=== PATIENT | male | born 1965 | race Caucasian/White ===

== ENCOUNTER 2016-10-27 18:33 | Inpatient (IN) | payer MEDICAID, OTHER ==
[~2016-10-27] VITALS: Ht 180.3 cm; Wt 118.0 kg
[2016-10-27] MEDS ORDERED: ONDANSETRON 4 MG INJ IV STA (18:49)
[2016-10-27] MEDS ORDERED: SOD CHLORIDE 0.9% 1,000 ML IV STA ×4 (18:49→20:47)
[2016-10-27] MEDS ORDERED: HYDROmorphONE 1 MG/ML SYG IV STA ×2 (18:49→20:38)
--- NOTE | 2016-10-27 19:32 | RADRPT ---
PROCEDURE: US Abdomen. CLINICAL INDICATION: Abdominal pain. TECHNIQUE: Multiple real-time images were acquired of the patient's right upper quadrant utilizing a high resolution transducer. The images were reviewed on a high-resolution PACS workstation. COMPARISON: None FINDINGS: Exam is limited secondary to body habitus. The liver demonstrates heterogeneous in echogenicity and size and no focal lesions are seen. The liver measures 18 cm in size. No gallstones are identified within the gallbladder. There is no pericholecystic fluid. The gallbladder wall measures 2.3 mm in size. No intrahepatic biliary dilatation is seen. The common bile duct measures 5.1 mm in maximal dimension. The pancreas is partially visualized. The visualized portion of the pancreas appear get[place] ssly unremarkable. No free fluid is identified. The right kidney is of normal size, and demonstrate normal echogenicity and morphology. The right k idney measures 9.3 cm. There are is no dilatation of the right collecting system. There are no per inephric fluid collections. There are no areas of increased echogenicity to suggest nephrolithiasis . IMPRESSION: Heterogeneous liver with mild hepatomegaly. RPTAT: HPNM Physician Mirtha Date Time Electronically viewed and signed by Physician Mirtha on 10/27/2016 19:32 /
[2016-10-27 19:33] LABS: ADD SCAN DIFF NO
[2016-10-27 19:44] LABS: BASOPHILS % 0.5 % (0.0-2.0); EOSINOPHILS % 0.1 % (0.0-7.0); HEMATOCRIT 48.4 % (42.0-52.0); LYMPHOCYTES % 13.4 % (15.0-51.0); MEAN CORPUSCULAR HEMOGLOBIN 31.8 pg (29.0-33.0); MEAN CORPUSCULAR HGB CONC 33.1 g/dl (32.0-37.0); MEAN CORPUSCULAR VOLUME 96.2 fl (82.0-101.0); MEAN PLATELET VOLUME 11.6 fl (7.4-10.4); MONOCYTE # 0.9 10^3/ul (0.3-0.9); MONOCYTES % 11.2 % (0.0-11.0); NEUTROPHIL # 5.8 10^3/ul (1.6-7.5); NEUTROPHILS % 74.4 % (39.0-77.0); PLATELET COUNT 146 10^3/UL (140-415); RED BLOOD COUNT 5.03 10^6/ul (4.70-6.10); RED CELL DISTRIBUTION WIDTH 13.6 % (11.5-14.5); WHITE BLOOD COUNT 7.8 10^3/ul (4.8-10.8)
[2016-10-27 19:58] LABS: INR 1.1; PROTIME 14.2 Sec (12.2-14.2); PT RATIO 1.1
[2016-10-27 19:59] LABS: PARTIAL THROMBOPLASTIN TIME 30.4 Sec (25.0-35.0)
[2016-10-27 20:25] LABS: ALBUMIN 5.5 g/dl (3.3-4.9); CHLORIDE 99 mmol/L (97-110); SODIUM 144 mmol/L (135-144)
[2016-10-27 20:26] LABS: POTASSIUM 3.7 mmol/L (3.5-5.1)
[2016-10-27 20:28] LABS: ALANINE AMINOTRANSFERASE 106 IU/L (13-69); ALBUMIN/GLOBULIN RATIO 1.41; ALKALINE PHOSPHATASE 106 IU/L (42-121); ANION GAP 39 (8-16); ASPARTATE AMINO TRANSFERASE 206 IU/L (15-46); BILIRUBIN,INDIRECT 0.8 mg/dl (0-1.1); BILIRUBIN,TOTAL 0.8 mg/dl (0.2-1.3); BLOOD UREA NITROGEN 19 mg/dl (7-20); CREATININE 1.52 mg/dl (0.61-1.24); GLUCOSE 195 mg/dl (70-220); TOTAL PROTEIN 9.4 g/dl (6.1-8.1)
[2016-10-27 20:30] LABS: CARBON DIOXIDE 10 mmol/L (21-31)
[2016-10-27 20:44] LABS: TROPONIN-I < 0.012 ng/ml (0.00-0.12)
--- NOTE | 2016-10-27 20:53 | ERA ---
ER Documentation Chief Complaint Date/Time DATE: 10/27/16 TIME: 20:49 Chief Complaint worsening ap today w/ vomiting. +dizziness hx dm HPI Patient is a 51-year-old male with hypertension and diabetes who presents with epigastric pain. He has had pain for 3 weeks. He is vomiting his medications. He said that he cannot eat or keep anything down. He also had a fever recently. He has had no treatment as of yet. He does not currently have a primary doctor. Upon review of old medical records the patient one previous visit in 2008. ROS All systems reviewed and are negative except as per history of present illness. Allergies Allergies: Coded Allergies: No Known Allergy (Verified , 10/27/16) PMhx/Soc History of Surgery: Yes (testicular surgery) Hx Neurological Disorder: No Hx Respiratory Disorders: No Hx Miscellaneous Medical Probl: Yes (pancreatitis, DM, HTN) Hx Alcohol Use: Yes Hx Substance Use: No Hx Tobacco Use: Yes Smoking Status: Current every day smoker FmHx Family History: No diabetes Physical Exam Vitals Vital Signs Date Time Temp Pulse Resp B/P Pulse Ox O2 Delivery O2 Flow Rate FiO2 10/27/16 19:37 107 16 155/101 94 Room Air 10/27/16 18:37 99.0 120 18 136/92 96 Physical Exam Const: Moderate distress secondary to pain Head: Atraumatic Eyes: Normal Conjunctiva ENT: Normal External Ears, Nose and Mouth. Neck: Full range of motion..~ No meningismus. Resp: Clear to auscultation bilaterally Cardio: Tachycardic rate without murmur Abd: Soft, epigastric tenderness to palpation without rebound or guarding Skin: No petechiae or rashes Back: No midline or flank tenderness Ext: No cyanosis, or edema Neur: Awake and alert Psych: Normal Mood and Affect Result Diagram: 10/27/16190910/27/161909 Results 24 hrs Laboratory Tests Test 10/27/16 18:55 10/27/16 19:10 Bedside Glucose 182mg/dL White Blood Count 7.810^3/ul Red Blood Count 5.0310^6/ul Hemoglobin 16.0g/dl Hematocrit 48.4% Mean Corpuscular Volume 96.2fl Mean Corpuscular Hemoglobin 31.8pg Mean Corpuscular Hemoglobin Concent 33.1g/dl Red Cell Distribution Width 13.6% Platelet Count 99498^3/UL Mean Platelet Volume 11.6fl Neutrophils % 74.4% Lymphocytes % 13.4% Monocytes % 11.2% Eosinophils % 0.1% Basophils % 0.5% Nucleated Red Blood Cells % 0.0/100WBC Neutrophils # 5.810^3/ul Lymphocytes # 1.010^3/ul Monocytes # 0.910^3/ul Eosinophils # 0.010^3/ul Basophils # 0.010^3/ul Nucleated Red Blood Cells # 0.010^3/ul Prothrombin Time 14.2Sec Prothrombin Time Ratio 1.1 INR International Normalized Ratio 1.10 Activated Partial Thromboplast Time 30.4Sec Sodium Level 144mmol/L Potassium Level 3.7mmol/L Chloride Level 99mmol/L Carbon Dioxide Level 10mmol/L Anion Gap 39 Blood Urea Nitrogen 19mg/dl Creatinine 1.52mg/dl Glucose Level 195mg/dl Calcium Level 9.0mg/dl Total Bilirubin 0.8mg/dl Direct Bilirubin 0.00mg/dl Indirect Bilirubin 0.8mg/dl Aspartate Amino Transf (AST/SGOT) 206IU/L Alanine Aminotransferase (ALT/SGPT) 106IU/L Alkaline Phosphatase 106IU/L Troponin I < 0.012ng/ml Total Protein 9.4g/dl Albumin 5.5g/dl Globulin 3.90g/dl Albumin/Globulin Ratio 1.41 Lipase 1920U/L Current Medications Medications (Trade) Dose Ordered Sig/Leeanne Route PRN Reason Start Time Stop Time Status Last Admin Dose Admin Sodium Chloride (NS) 1,000 ml @ 1,000 mls/hr Q1H STAT IV 10/27/16 18:49 10/27/16 19:48 DC 10/27/16 19:18 Hydromorphone HCl (Dilaudid) 1 mg ONCE STAT IV 10/27/16 18:49 10/27/16 18:50 DC 10/27/16 19:09 Ondansetron HCl 4 mg 4 mg ONCE STAT IV 10/27/16 18:49 10/27/16 18:50 DC 10/27/16 19:09 Sodium Chloride 1,000 ml @ 1,000 mls/hr Q1H STAT IV 10/27/16 18:49 10/27/16 19:48 DC 10/27/16 19:34 Piperacillin Sod/ Tazobactam Sod (Zosyn 3.375gm/ 100 ml (Pmx)) 100 ml @ 200 mls/hr ONCE ONCE IVPB 10/27/16 21:00 10/27/16 21:29 Hydromorphone HCl (Dilaudid) 1 mg ONCE STAT IV 10/27/16 20:38 10/27/16 20:39 DC Ondansetron HCl (Zofran Inj) 4 mg BRIDGE ORDER PRN IV NAUSEA AND/OR VOMITING 10/27/16 21:00 10/28/16 20:59 Acetaminophen (Tylenol Tab) 650 mg ER BRIDGE PRN PO MILD PAIN/FEVER 10/27/16 21:00 10/28/16 20:59 Procedures/MDM EKG read by me: Rate/Rhythm: Sinus tachycardia at a rate of 113 Intervals: Normal Impression: Sinus tachycardia without ischemia Ultrasound shows hepatomegaly per radiology. Admit MDM: Patient's infectious symptoms have not stabilized and the patient is at risk of rapid decompensation. The patient will be admitted for careful hydration, antibiotic therapy, and infectious source control. Severe Sepsis criteria: Infectious source: Pancreatitis End organ damage indicated by: No end organ damage at this time Sepsis Management: Time of recognition of sepsis: 19:10 Within 3 hours of recognition: Blood cultures x 2 before broad-spectrum antibiotics: Yes 30 ml/kg NS bolus Completed Initial lactate pending Repeat lactate pending Time of recognition of septic shock: No septic shock Septic Shock Assessment: Any lactic acid > 4.0 No Persistent hypotension (SBP < 90 or 40 mmHg drop, MAP < 65) despite 30 mL/kg IV fluid bolus No Volume Re-assessment for Septic Shock (post 30 ml/kg bolus): No septic shock at this time Persistent Hypotension Treatment: Comfort care No Central line Not Required Vasopressor started Not required I considered further perfusion assessment with CVP measurement, SCVO2, bedside ultrasound volume assessment, passive leg raise, trial of further fluid bolus. And proceeded with 30 ml/kg fluid bolus of NSS, broad spectrum antibiotics, and admission. Given the anion gap acidosis I also added lactic acid, Tylenol level , salicylate level, and alcohol level. Accepting Care Team Current data and ongoing care discussed. Admitting Physician: Dr. King from the panel team as the patient has never been admitted before Quality Control Expert(s): None Outstanding Data: Culture results and lactic acid Critical Care: Critical care time 35 minutes excluding all billable procedures Emergent fluid management while maintaining close respiratory support. Provision of immediate and broad-spectrum antibiotic therapy. Simultaneous assessment for possible sources in order to direct targeted therapy. Consideration for invasive and chemical support to prevent cardiopulmonary collapse. Departure Diagnosis: Primary Impression: Pancreatitis Qualified Code: K85.90 - Acute pancreatitis, unspecified complication status, unspecified pancreatitis type Additional Impressions: Sepsis Qualified Code: A41.9 - Sepsis, due to unspecified organism Abdominal pain Qualified Code: R10.13 - Epigastric pain Condition: KALIN Singh MD October 27, 2016 20:53
[2016-10-27] MEDS ORDERED: ONDANSETRON 4 MG INJ IV PRN (21:00)
[2016-10-27] MEDS ORDERED: PIPER-TAZO 3.375 GM IV (PMX) 100 ML IVPB ONE (21:00)
[2016-10-27] MEDS ORDERED: ACETAMINOPHEN 325 MG TAB PO PRN (21:00)
[2016-10-27 21:15] VITALS: TEMP 98.1
--- NOTE | 2016-10-27 21:44 | RADRPT ---
PROCEDURE: CT abdomen and pelvis without intravenous contrast. CLINICAL INDICATION: Pain. TECHNIQUE: CT of the abdomen/pelvis was performed utilizing axial images with reconstructions in s agittal and coronal planes. The administered radiation dose is CTDI 24 mGy, DLP 1515 mGy-cm. COMPARISON: No pertinent prior examinations were submitted for comparison. FINDINGS: Visualized Chest: There is mild atelectasis at the lung bases. Abdomen: The spleen, gallbladder,and adrenal glands are unremarkable. The liver is markedly, diffusely dec reased in attenuation, compatible with hepatic steatosis. There are mild peripancreatic fat infiltrative changes most compatible with pancreatitis. The kidneys are without hydronephrosis. No definite urinary calculi are seen. There is no evidence of bowel obstruction. The appendix is normal. No intra-abdominal free air is seen. Some diverticula are noted along the sigmoid colon without evidence of diverticulitis. There is no evidence of intra-abdominal adenopathy or free fluid. Pelvis: There is no evidence of pelvic adenopathy or free fluid. The prostate and bladder are unremarkable. There is a tiny fat containing left inguinal hernia. Osseous structures: Unremarkable. IMPRESSION: Mild peripancreatic inflammatory changes suggestive of acute pancreatitis. Marked hepatic steatosis. Mild colonic diverticulosis. Tiny, fat-containing left inguinal hernia. RPTAT: HIKT .Tommy Brian MD, Date Time Electronically viewed and signed by .Tommy Brian MD, on 10/27/2016 21:43 .T/
[2016-10-27 22:06] VITALS: PULSE 100
[2016-10-27] MEDS: METOCLOPRAMIDE 10 MG INJ IV PRN (22:16)
[2016-10-27] MEDS ORDERED: HYDROmorphONE 1 MG/ML SYG IV PRN (22:30)
[2016-10-27 22:33] LABS: ACETAMINOPHEN < 10.0 ug/ml (10.0-30.0); SALICYLATE < 1.0 mg/dl (5.0-30.0)
--- NOTE | 2016-10-27 22:51 | HP ---
Date/Time of Note Date/Time of Note DATE: 10/27/16 TIME: 22:51 Assessment/Plan VTE Prophylaxis VTE Prophylaxis Intervention: SCD's Assessment/Plan Chief Complaint/Hosp Course This is a 51-year-old male being admitted to the [facility] floor for: #1 Acute pancreatitis: Alcohol versus triglycerides versus other etiology. Patient denies daily alcohol use however we will check off the alcohol level as well as salicylate and acetaminophen level as well as triglycerides. Patient's ultrasound of the liver showed hepatomegaly. CAT scan was confirmatory for acute pancreatitis. Will continue aggressive IV fluid hydration at this time. Will keep patient n.p.o. Will provide Dilaudid for pain control. And Zofran for nausea and vomiting. Will trend lipase. Will give patient banana bag. #2 lactic acidosis/metabolic acidosis: Likely secondary to #1.initially lactate level was 3.6 at admission will provide IV fluid hydration at this time and continue to monitor lactate level as well as serum bicarb level. There is no overt signs for infection the patient did receive Zosyn in the ED. We will continue to monitor the patient for now and start antibiotics if it becomes indicated. #3 Acute kidney injury: Creatinine was 1.5 for previous creatinine levels are not available. We will continue IV fluid hydration and monitor creatinine function. Will avoid nephrotoxic agents at this time. Renally dose any medications. #4 transaminitis: The current time on CT scan and ultrasound are just appears to be hepatomegaly/steatosis. Will continue to follow. Will order hepatitis panel. #5 Diabetes: We will order A1c level will put patient on insulin sliding scale. Currently he is not on any home medications. #6 DVT and GI prophylaxis: SCDs, Protonix. Further treatment strategy will be implemented as per the clinical course Problems: HPI/ROS Admit Date/Time Admit Date/Time October 27, 2016 at 20:42 Hx of Present Illness Chief complaint: Abdominal pain 3 weeks Patient is a 51-year-old male with hypertension and diabetes who presents with epigastric pain. He has had pain for 3 weeks. He is vomiting his medications. He said that he cannot eat or keep anything down. He also had a fever recently. He has had no treatment as of yet. He does not currently have a primary doctor. Allergies: NKDA Medications: None ROS Const: as per HPI Eyes : No pain discharge or redness or change in visual acuity ENT: No pain, sore throat, congestion, congestion, dysphagia or discharge Respiratory: No shortness of breath, cough, sputum, wheezing, or pleuritic pain Cardiovascular: No chest pain, palpitation, PND, or edema GI : as per HPI Genitourinary: No dysuria, hematuria, flank pain , discharge or CVA tenderness Musculoskeletal: No joint pain, back pain, neck pain, restricted range of motion in neck or joints Skin: No rash, bruising or hives Neuro: No headache, dizziness, syncope, seizure, focal weakness Endocrine: No polyuria, polydipsia, temperature intolerance Psych: No hallucination, depression, anxiety or suicidal ideation PMH/Family/Social Past Medical History Pancreatitis, diabetes mellitus Past Surgical History Testicular surgery Family History Significant Family History: cancer (Brother) Social History Alcohol Use: occasionally Smoking Status: Current every day smoker (1 cigarette per day 15 year) Exam/Review of Systems Vital Signs Vitals Vital Signs Date Time Temp Pulse Resp B/P Pulse Ox O2 Delivery O2 Flow Rate FiO2 10/27/16 21:15 98.1 107 15 151/88 98 10/27/16 19:37 Room Air Exam Exam General: This is a 51-year-old male in mild distress HEENT: Atraumatic, normocephalic. The pupils are equal, round and reactive. Extraocular motor are intact Neck: Supple with full range of motion. No rigidity or meningismus Chest: Nontender Lungs: Clear to auscultation bilaterally no crackles rales or wheezing Heart: Normal S1-S2, Regular rhythm and rate. No murmur, S3, or S4 Abdomen: Soft, epigastric pain to palpation, positive bowel sounds. Extremities: Normal to inspection, no edema no cyanosis Neurologic: Normal mental status, speech normal, cranial nerves II through XII are intact, motor and sensory are intact, no focal weakness Additional Comments PROCEDURE: US Abdomen. CLINICAL INDICATION: Abdominal pain. TECHNIQUE: Multiple real-time images were acquired of the patient's right upper quadrant utilizing a high resolution transducer. The images were reviewed on a high-resolution PACS workstation. COMPARISON: None FINDINGS: Exam is limited secondary to body habitus. The liver demonstrates heterogeneous in echogenicity and size and no focal lesions are seen. The liver measures 18 cm in size. No gallstones are identified within the gallbladder. There is no pericholecystic fluid. The gallbladder wall measures 2.3 mm in size. No intrahepatic biliary dilatation is seen. The common bile duct measures 5.1 mm in maximal dimension. The pancreas is partially visualized. The visualized portion of the pancreas appear grossly unremarkable. No free fluid is identified. The right kidney is of normal size, and demonstrate normal echogenicity and morphology. The right kidney measures 9.3 cm. There are is no dilatation of the right collecting system. There are no perinephric fluid collections. There are no areas of increased echogenicity to suggest nephrolithiasis. IMPRESSION: Heterogeneous liver with mild hepatomegaly. PROCEDURE: CT abdomen and pelvis without intravenous contrast. CLINICAL INDICATION: Pain. TECHNIQUE: CT of the abdomen/pelvis was performed utilizing axial images with reconstructions in sagittal and coronal planes. The administered radiation dose is CTDI 24 mGy, DLP 1515 mGy-cm. COMPARISON: No pertinent prior examinations were submitted for comparison. FINDINGS: Visualized Chest: There is mild atelectasis at the lung bases. Abdomen: The spleen, gallbladder,and adrenal glands are unremarkable. The liver is markedly, diffusely decreased in attenuation, compatible with hepatic steatosis. There are mild peripancreatic fat infiltrative changes most compatible with pancreatitis. The kidneys are without hydronephrosis. No definite urinary calculi are seen. There is no evidence of bowel obstruction. The appendix is normal. No intra- abdominal free air is seen. Some diverticula are noted along the sigmoid colon without evidence of diverticulitis. There is no evidence of intra-abdominal adenopathy or free fluid. Pelvis: There is no evidence of pelvic adenopathy or free fluid. The prostate and bladder are unremarkable. There is a tiny fat containing left inguinal hernia. Osseous structures: Unremarkable. IMPRESSION: Mild peripancreatic inflammatory changes suggestive of acute pancreatitis. Marked hepatic steatosis. Mild colonic diverticulosis. Tiny, fat-containing left inguinal hernia. RPTAT: HIKT .Tommy Brian MD, Date Time Electronically viewed and signed by .Tommy Brian MD, MD on 10/27/2016 21:43 Labs Result Diagram: 5/30/17 1910 5/30/17 1910 Medications Medications Current Medications Metoclopramide HCl (Reglan) 10 mg Q6 PRN IV NAUSEA Last administered on 22:16; Admin Dose 10 MG; Start 10/27/16 at 22:00 Hydromorphone HCl (Dilaudid) 1 mg Q6H PRN IV PAIN Last administered on 22:15; Admin Dose 1 MG; Start 10/27/16 at 22:30 TANYA BUTT October 27, 2016 22:51
[2016-10-27] MEDS ORDERED: NACL 0.9% 3 ML SYG IV SCH (23:00)
[2016-10-27] MEDS ORDERED: METOCLOPRAMIDE 10 MG INJ IV PRN (23:00)
[2016-10-27] MEDS ORDERED: LORAZEPAM 2 MG INJ IV PRN (23:00)
[2016-10-27] MEDS: SOD CHLORIDE 0.9% 1,000 ML IV SCH (23:45)
[2016-10-28] VITALS (12 sets, daily range): BP systolic 128–153; BP diastolic 65–84; PULSE 110–126; RESP 16–18; Ht 180.3 cm; Wt 118.0 kg
[2016-10-28] MEDS ORDERED: GLUCAGON 1 MG INJ IM PRN (00:15)
[2016-10-28] MEDS ORDERED: GLUCOSE GEL 15 GRAM TUBE BUCCAL PRN (00:15)
[2016-10-28] MEDS ORDERED: GLUCOSE GEL 15 GRAM TUBE PO PRN ×2 (00:15)
[2016-10-28] MEDS ORDERED: DEXTROSE 50% 50 ML SYRINGE IV PRN ×2 (00:15)
[2016-10-28] MEDS: HYDROmorphONE 2 MG/ML SYG IV PRN ×6 (00:16→20:54)
[2016-10-28] MEDS: INSULIN ASPART [NOVOLOG] 3 ML PEN SC SCH ×6 (00:23→20:51)
[2016-10-28 01:32] LABS: ALBUMIN 4.8 g/dl (3.3-4.9); ALBUMIN/GLOBULIN RATIO 1.5; BILIRUBIN,INDIRECT 0.4 mg/dl (0-1.1); BILIRUBIN,TOTAL 0.4 mg/dl (0.2-1.3); CALCIUM 7.7 mg/dl (8.4-10.2); CREATININE 1.15 mg/dl (0.61-1.24); POTASSIUM 3.9 mmol/L (3.5-5.1)
[2016-10-28] MEDS ORDERED: PANTOPRAZOLE 40 MG INJ IV SCH ×2 (06:00→09:00)
[2016-10-28] MEDS: SOD CHLORIDE 0.9% 1,000 ML IV SCH ×3 (06:24→18:37)
[2016-10-28] MEDS: ONDANSETRON 4 MG INJ IV PRN ×2 (07:07→10:30)
[2016-10-28 08:03] LABS: ADD SCAN DIFF NO
[2016-10-28 08:06] LABS: HAAIG REFLEX REFLEX FILED
[2016-10-28 08:08] LABS: ABNORMAL IP MESSAGE 1; BASOPHILS % 0.1 % (0.0-2.0); EOSINOPHILS % 0.1 % (0.0-7.0); HEMATOCRIT 45.6 % (42.0-52.0); HEMOGLOBIN 14.3 g/dl (14.0-18.0); LYMPHOCYTES # 0.8 10^3/ul (0.8-2.9); LYMPHOCYTES % 10.1 % (15.0-51.0); MEAN CORPUSCULAR HEMOGLOBIN 31.3 pg (29.0-33.0); MEAN CORPUSCULAR HGB CONC 31.4 g/dl (32.0-37.0); MEAN CORPUSCULAR VOLUME 99.8 fl (82.0-101.0); MEAN PLATELET VOLUME 11.5 fl (7.4-10.4); NEUTROPHIL # 5.6 10^3/ul (1.6-7.5); NEUTROPHILS % 76.3 % (39.0-77.0); PLATELET COUNT 98 10^3/UL (140-415); RED BLOOD COUNT 4.57 10^6/ul (4.70-6.10); RED CELL DISTRIBUTION WIDTH 14.1 % (11.5-14.5); WHITE BLOOD COUNT 7.4 10^3/ul (4.8-10.8)
[2016-10-28 08:31] LABS: ALBUMIN 4.9 g/dl (3.3-4.9); ALBUMIN/GLOBULIN RATIO 1.53; BILIRUBIN,INDIRECT 0.5 mg/dl (0-1.1); BILIRUBIN,TOTAL 0.5 mg/dl (0.2-1.3); CALCIUM 7.6 mg/dl (8.4-10.2); CHOL/HDL RATIO 2.2 RATIO; CREATININE 1.2 mg/dl (0.61-1.24); MAGNESIUM 1.6 mg/dl (1.7-2.5); POTASSIUM 3.7 mmol/L (3.5-5.1); TOTAL PROTEIN 8.1 g/dl (6.1-8.1)
[2016-10-28 08:40] LABS: C-REACTIVE PROTEIN 2.6 mg/dl (0.0-0.9)
[2016-10-28 08:57] LABS: THYROID STIMULATING HORMONE 2.36 MIU/L (0.465-4.680)
[2016-10-28] MEDS ORDERED: MULTIVITAMINS 10 ML, THIAMINE 100 MG, FOLIC ACID 1 MG in SOD CHLORIDE 0.9% 1,000 ML IVPB SCH (09:00)
[2016-10-28 09:17] LABS: HEPATITIS B CORE ANTIBODY NEGATIVE (NEGATIVE)
[2016-10-28 10:50] LABS: BARBITURATES NEGATIVE (NEGATIVE); BENZODIAZEPINES NEGATIVE (NEGATIVE); CANNABINOIDS NEGATIVE (NEGATIVE); COCAINE NEGATIVE (NEGATIVE)
[2016-10-28 10:51] LABS: OPIATES POSITIVE (NEGATIVE)
--- NOTE | 2016-10-28 11:14 | PN ---
Date/Time of Note Date/Time of Note DATE: 10/28/16 TIME: 11:11 Assessment/Plan VTE Prophylaxis VTE Prophylaxis Intervention: SCD's Lines/Catheters IV Catheter Type (from Nrsg): Peripheral IV Assessment/Plan Assessment/Plan 51 yo M with pmhx DM2, morbid obesity, h/o acute pancreatitis here for abd pain 2/2 pancreatitis. Imaging without evidence of gallstones. Etio EtOH v DM. PLAN IVFs, ADAT SSI for DM2 SCDs diabetes/RD education dispo pending ability to tolerate PO Subjective 24 Hr Interval Summary Free Text/Dictation Pt states his abdominal pain is not well enough controlled but then frequently doses off during the clinical encounter. Pt reports a previous episode of pancreatitis 5 yrs ago, states cause was not found. Reports his EtOH use is "social." Exam/Review of Systems Vital Signs Vitals Vital Signs Date Time Temp Pulse Resp B/P Pulse Ox O2 Delivery O2 Flow Rate FiO2 10/28/16 09:26 126 10/28/16 07:36 98.0 18 138/76 93 10/27/16 19:37 Room Air Intake and Output 10/27/16 10/27/16 10/28/16 15:00 23:00 07:00 Intake Total 2000 ml 900 ml Balance 2000 ml 900 ml Exam laying in bed, dozing off during interview no mrg lungs clear obese, ntnd no le edema no rashes Results Result Diagram: 10/28/16 0715 10/28/16 0715 Results 24 hrs Laboratory Tests Test 10/27/16 18:55 10/27/16 19:10 10/27/16 21:10 10/28/16 00:22 Bedside Glucose 182 183 White Blood Count 7.8 Red Blood Count 5.03 Hemoglobin 16.0 Hematocrit 48.4 Mean Corpuscular Volume 96.2 Mean Corpuscular Hemoglobin 31.8 Mean Corpuscular Hemoglobin Concent 33.1 Red Cell Distribution Width 13.6 Platelet Count 146 Mean Platelet Volume 11.6 H Neutrophils % 74.4 Lymphocytes % 13.4 L Monocytes % 11.2 H Eosinophils % 0.1 Basophils % 0.5 Nucleated Red Blood Cells % 0.0 Neutrophils # 5.8 Lymphocytes # 1.0 Monocytes # 0.9 Eosinophils # 0.0 Basophils # 0.0 Nucleated Red Blood Cells # 0.0 Prothrombin Time 14.2 Prothrombin Time Ratio 1.1 INR International Normalized Ratio 1.10 Activated Partial Thromboplast Time 30.4 Sodium Level 144 Potassium Level 3.7 Chloride Level 99 Carbon Dioxide Level 10 L Anion Gap 39 H Blood Urea Nitrogen 19 Creatinine 1.52 H Glucose Level 195 Calcium Level 9.0 Total Bilirubin 0.8 Direct Bilirubin 0.00 Indirect Bilirubin 0.8 Aspartate Amino Transf (AST/SGOT) 206 H Alanine Aminotransferase (ALT/SGPT) 106 H Alkaline Phosphatase 106 Troponin I < 0.012 Total Protein 9.4 H Albumin 5.5 H Globulin 3.90 H Albumin/Globulin Ratio 1.41 Lipase 1920 H Lactic Acid Level 3.2 H Salicylates Level < 1.0 L Acetaminophen Level < 10.0 L Ethyl Alcohol Level 39.0 Test 10/28/16 00:56 10/28/16 03:40 10/28/16 04:05 10/28/16 07:15 Sodium Level 139 140 Potassium Level 3.9 3.7 Chloride Level 104 106 Carbon Dioxide Level 13 L 12 L Anion Gap 26 #H 26 H Blood Urea Nitrogen 17 17 Creatinine 1.15 1.20 Glucose Level 185 188 Lactic Acid Level 1.6 Calcium Level 7.7 L 7.6 L Total Bilirubin 0.4 0.5 Direct Bilirubin 0.00 0.00 Indirect Bilirubin 0.4 0.5 Aspartate Amino Transf (AST/SGOT) 167 H 158 H Alanine Aminotransferase (ALT/SGPT) 97 H 95 H Alkaline Phosphatase 88 90 Total Protein 8.0 # 8.1 Albumin 4.8 4.9 Globulin 3.20 3.20 Albumin/Globulin Ratio 1.50 1.53 Urine Opiates Screen POSITIVE Urine Barbiturates NEGATIVE Urine Amphetamines Screen NEGATIVE Urine Benzodiazepines Screen NEGATIVE Urine Cocaine Screen NEGATIVE Urine Cannabinoids NEGATIVE Bedside Glucose 183 White Blood Count 7.4 Red Blood Count 4.57 L Hemoglobin 14.3 Hematocrit 45.6 Mean Corpuscular Volume 99.8 Mean Corpuscular Hemoglobin 31.3 Mean Corpuscular Hemoglobin Concent 31.4 L Red Cell Distribution Width 14.1 Platelet Count 98 #L Mean Platelet Volume 11.5 H Neutrophils % 76.3 Lymphocytes % 10.1 L Monocytes % 13.0 H Eosinophils % 0.1 Basophils % 0.1 Nucleated Red Blood Cells % 0.0 Neutrophils # 5.6 Lymphocytes # 0.8 Monocytes # 1.0 H Eosinophils # 0.0 Basophils # 0.0 Nucleated Red Blood Cells # 0.0 Hemoglobin A1c 8.0 H Magnesium Level 1.6 L C-Reactive Protein 2.6 H Triglycerides Level 253 H Cholesterol Level 220 H LDL Cholesterol, Calculated 71 HDL Cholesterol 98 H Cholesterol/HDL Ratio 2.2 Lipase 68145 H Thyroid Stimulating Hormone (TSH) 2.360 Hepatitis B Surface Antigen NEGATIVE Hepatitis B Core Total Antibody NEGATIVE Hepatitis C Antibody NEGATIVE Test 10/28/16 08:23 Bedside Glucose 182 Medications Medications Current Medications Metoclopramide HCl 10 mg 10 mg Q6 PRN IV NAUSEA Last administered on 10/27/16 22:16; Admin Dose 10 MG; Start 10/27/16 at 22:00 Sodium Chloride (NS) 1,000 ml @ 150 mls/hr Q6H40M IV Last administered on 10/28 06:24; Admin Dose 150 MLS/HR; Start 10/27/16 at 23:00 Lorazepam (Ativan) 1 mg Q4H PRN IV ANXIETY Last administered on 10/28/16 02:44 ; Admin Dose 1 MG; Start 10/27/16 at 23:00 Ondansetron HCl (Zofran Inj) 4 mg Q6H PRN IV NAUSEA AND/OR VOMITING Last administered on 10/28/16 10:30; Admin Dose 4 MG; Start 10/27/16 at 23:00 Acetaminophen (Tylenol Tab) 650 mg Q6H PRN PO PAIN LEVEL 1-3 OR FEVER; Start at 23:00 Insulin Aspart (Novolog Insulin Pen) NOVOLOG *MILD* ALGORI... Q4 SC Last administered on 10/28/16 08:26; Admin Dose 2 UNIT; Start 10/28/16 at 01:00 Miscellaneous Information 1 ea NOTE XX ; Start 10/28/16 at 00:15 Glucose (Glutose) 15 gm Q15M PRN PO DECREASED GLUCOSE; Start 10/28/16 at 00:15 Glucose (Glutose) 22.5 gm Q15M PRN PO DECREASED GLUCOSE; Start 10/28/16 at 00: 15 Dextrose (D50w Syringe) 25 ml Q15M PRN IV DECREASED GLUCOSE; Start 10/28/16 at 00:15 Dextrose (D50w Syringe) 50 ml Q15M PRN IV DECREASED GLUCOSE; Start 10/28/16 at 00:15 Glucagon (Glucagen) 1 mg Q15M PRN IM DECREASED GLUCOSE; Start 10/28/16 at 00:15 Glucose (Glutose) 15 gm Q15M PRN BUCCAL DECREASED GLUCOSE; Start 10/28/16 at 00 :15 Hydromorphone HCl (Dilaudid) 2 mg Q4H PRN IV PAIN; Start 10/28/16 at 13:00 ACTHERINE GILBERT MD October 28, 2016 11:14
[2016-10-28] MEDS ORDERED: MAGNESIUM SULFATE 2 GM/50 ML 50 ML IVPB ONE (13:00)
[2016-10-28] MEDS ORDERED: HYDROmorphONE 2 MG/ML SYG IV PRN ×2 (13:00)
--- NOTE | 2016-10-28 13:16 | CONS ---
DATE OF ADMISSION: 10/27/2016 DATE OF CONSULTATION: 10/28/2016 REASON FOR CONSULTATION: Metabolic acidosis. REQUESTING PHYSICIAN: Dr. King HISTORY OF PRESENT ILLNESS: This is a 51-year-old male with a past medical history of hypertension and diabetes who presented to [facility] with epigastric pain. The patient states the pain has been ongoing for approximately 3 weeks. The patient says he is unable to tolerate p.o .'s. As a result, he came into the emergency room for evaluation. Upon arrival, the patient had a CT scan of the abdomen which showed findings of peripancreatic inflammation to suggest acute pancrea titis as well as marked hepatic steatosis. The patient in the emergency room was given IV hydration , was given IV pain medication and admitted to telemetry for evaluation. Upon my evaluation of the patient at this time, he is currently lethargic but stable, complaining of epigastric pain, denies a ny recent history of hemoptysis, hemetemesis, hematochezia. The patient denies also any history of chronic kidney disease and denies any frothy urine. PAST MEDICAL HISTORY: History of diabetes, hypertension. PAST SURGICAL HISTORY: Testicular surgery. ALLERGIES: NO KNOWN DRUG ALLERGIES. FAMILY HISTORY: Noncontributory. SOCIAL HISTORY: Positive alcohol use. MEDICATIONS: The patient's medications have been reviewed. REVIEW OF SYSTEMS: A 14-point review of systems was conducted. Pertinent positives in HPI, otherwi se negative. PHYSICAL EXAMINATION: VITAL SIGNS: Blood pressure is 142/65, respiration 18, pulse 124, temperature 98.4. HEENT: Head is normocephalic. Pupils are reactive to light. NECK: Supple. HEART: Tachycardic. LUNGS: Show diminished breath sounds at base. ABDOMEN: Soft, positive tenderness to palpation. No rebound or guarding. EXTREMITIES: Negative for clubbing, cyanosis, no edema. DERMATOLOGIC: No rashes. MUSCULOSKELETAL: No joint effusions. NEUROLOGIC: No change in exam. MEDICATIONS: The patient's medications have been reviewed. LABORATORY DATA: Shows sodium 140, potassium 3.7, chloride 106, bicarbonate 12, BUN 17, creatinine 1.20, calcium 7.6, magnesium 1.6. White count 7.4, hemoglobin 14.3, hematocrit 45.6, platelet count is 98. Triglycerides 253. IMAGING STUDIES: As stated in HPI. Gallbladder ultrasound shows hepatomegaly. ASSESSMENT AND PLAN: This is a 51-year-old male who presents with: 1. Nonoliguric acute kidney injury with unknown baseline creatinine. Etiology is likely secondary to hemodynamics. Patient's renal function has improved with IV hydration. At this point, continue to monitor, continue supportive care, renally dose meds, avoid nephrotoxins. Will check a UA with m icroanalysis. 2. Anion gap metabolic acidosis. Etiology may be secondary to ETOH ketoacidosis, starvation ketoac idosis. Possible lactic acidosis may have been a contributing factor. Plan at this point is to adalberto ck an ABG to see if the patient is appropriately compensated. Would continue IV hydration. Continu e dextrose containing solution. Will start the patient on D5 NS at 100 mL an hour. Will continue t o monitor closely. 3. Acute pancreatitis, etiology is likely secondary to ETOH use, possible triglycerides. The patie nt is currently n.p.o., receiving IV hydration and will continue to monitor. Continue pain control. 4. Diabetes. Follow up hemoglobin A1c to monitor hemoglobin and hematocrit levels. 5. Gastrointestinal and deep venous thrombosis prophylaxis. 6. Morbid obesity. Continue to monitor. Thank you, Dr. Kennedy, for this interesting consult. It will be a pleasure to follow patient with yo u throughout the hospital course. Dictated By: STEVEN DEAL/ANIBAL Conf#: [id number] DID#: [id number]
[2016-10-28 14:07] LABS: AADO2 Arterial 65.5 mmHg (7.0-24.0); Allen Test ACCEPTAB; Arterial Base Excess -14.5 mmol/L (-3.0-3); Arterial COHb 0.2 % (0.0-3.0); Arterial HCO3 12.9 mmol/L (22.0-26.0); Arterial MetHb 0.5 % (0.0-1.5); Arterial Total Hemglobin 15.4 g/dl (12.0-18.0); MODE NASAL CANNULA
[2016-10-28] MEDS ORDERED: NITROGLYCERIN (SL) 0.4 MG TAB ONE (14:47)
[2016-10-28 17:43] LABS: CREATINE KINASE 121 IU/L (23-200)
[2016-10-28 17:53] LABS: ADD UMIC YES; URINE BILIRUBIN (Dip) 2+ (NEGATIVE); URINE BLOOD (Dip) 3+ (NEGATIVE); URINE COLOR YELLOW (YELLOW); URINE KETONES (Dip) 3+ (NEGATIVE); URINE LEUKOCYTE ESTERASE (Dip) NEGATIVE (NEGATIVE); URINE NITRITE (Dip) NEGATIVE (NEGATIVE); URINE TOTAL PROTEIN (Dip) 2+ (NEGATIVE); URINE UROBILINOGEN (Dip) 0.2 E.U./dL (0.1-1.0)
[2016-10-28 17:58] LABS: CK-MB 1.71 ng/ml (0.0-2.4); TROPONIN-I < 0.012 ng/ml (0.00-0.12)
[2016-10-28 18:21] LABS: ICTOTEST POSITIVE (NEGATIVE)
[2016-10-28 18:23] LABS: URINE RBCS 0-2 /HPF (0)
[2016-10-28 18:24] LABS: SQUAMOUS EPITHELIAL CELL,UR RARE
[2016-10-29] VITALS (13 sets, daily range): BP systolic 120–138; BP diastolic 70–84; PULSE 104–119; RESP 16–18
[2016-10-29] MEDS: INSULIN ASPART [NOVOLOG] 3 ML PEN SC SCH ×6 (00:33→20:21)
[2016-10-29] MEDS: SOD CHLORIDE 0.9% 1,000 ML IV SCH ×5 (01:40→22:20)
[2016-10-29 01:59] LABS: CREATINE KINASE 113 IU/L (23-200)
[2016-10-29 02:16] LABS: CK-MB 1.65 ng/ml (0.0-2.4); TROPONIN-I < 0.012 ng/ml (0.00-0.12)
[2016-10-29 05:00] LABS: AADO2 Arterial 99.2 mmHg (7.0-24.0); Allen Test ACCEPTAB; Arterial Base Excess -7.8 mmol/L (-3.0-3); Arterial COHb 0.5 % (0.0-3.0); Arterial Fraction of Oxyhgb 93.7 % (93.0-99.0); Arterial HCO3 18.7 mmol/L (22.0-26.0); Arterial MetHb 0.4 % (0.0-1.5); Arterial Total Hemglobin 14.7 g/dl (12.0-18.0); MODE NASAL CANNULA
[2016-10-29 07:41] LABS: ADD SCAN DIFF NO
[2016-10-29 07:51] LABS: ABNORMAL IP MESSAGE 1; BASOPHILS % 0.3 % (0.0-2.0); EOSINOPHILS % 0.2 % (0.0-7.0); HEMATOCRIT 42.7 % (42.0-52.0); HEMOGLOBIN 13.9 g/dl (14.0-18.0); LYMPHOCYTES # 0.4 10^3/ul (0.8-2.9); MEAN CORPUSCULAR HEMOGLOBIN 31.9 pg (29.0-33.0); MEAN CORPUSCULAR HGB CONC 32.6 g/dl (32.0-37.0); MEAN CORPUSCULAR VOLUME 97.9 fl (82.0-101.0); MEAN PLATELET VOLUME 11.5 fl (7.4-10.4); MONOCYTE # 1.2 10^3/ul (0.3-0.9); MONOCYTES % 13.7 % (0.0-11.0); NEUTROPHILS % 78.9 % (39.0-77.0); RED BLOOD COUNT 4.36 10^6/ul (4.70-6.10); WHITE BLOOD COUNT 8.9 10^3/ul (4.8-10.8)
[2016-10-29 07:55] LABS: PLATELET COUNT 71 10^3/UL (140-415)
[2016-10-29 08:07] LABS: CREATINE KINASE 82 IU/L (23-200)
[2016-10-29 08:13] LABS: CALCIUM 7.9 mg/dl (8.4-10.2); CREATININE 1.01 mg/dl (0.61-1.24); MAGNESIUM 1.7 mg/dl (1.7-2.5); PHOSPHORUS 0.6 mg/dl (2.5-4.9); POTASSIUM 3.5 mmol/L (3.5-5.1)
[2016-10-29 08:39] LABS: CK-MB 1.31 ng/ml (0.0-2.4); TROPONIN-I < 0.012 ng/ml (0.00-0.12)
[2016-10-29] MEDS: HYDROmorphONE 2 MG/ML SYG IV PRN ×2 (09:01→20:12)
--- NOTE | 2016-10-29 10:37 | PN ---
DATE: 10/29/2016 SUBJECTIVE: The patient continues to have abdominal pain, but does want to eat some food. No other events noted. No hemoptysis, hematemesis or hematochezia. OBJECTIVE: VITAL SIGNS: Blood pressure 134/84, respiration 18, pulse 109, temperature 98.4. HEENT: Head is normocephalic. NECK: Supple. HEART: Regular rate. LUNGS: Show diminished breath sounds at base. ABDOMEN: Soft, positive tenderness to palpation. No rebound or guarding. EXTREMITIES: Negative for clubbing, cyanosis. No edema. DERMATOLOGIC: No rashes. MUSCULOSKELETAL: No joint effusions. NEUROLOGIC: No change in exam. MEDICATIONS: The patient's medications have been reviewed. LABORATORY DATA: Shows sodium 133, potassium 2.5 , chloride 105, BUN 13, creatinine 1.01. White co unt is 8.9, hemoglobin 13.9, hematocrit of 42.7, platelet count 71. ASSESSMENT AND PLAN: 1. Nonoliguric acute kidney injury with unknown baseline creatinine. Etiology secondary to hemodyn amics. Renal function is improved with IV fluids. Continue current treatment plan, supportive care , renally dose his meds. Continue decreasing rate of IV fluids. 2. Diabetic ketoacidosis. Etiology is likely secondary to ETOH or starvation. The patient's UA sh ows positive ketones. The patient's acidemia has been improving with supportive care. At this poin t, continue current treatment plan. No need for bicarbonate therapy. 3. Hyperphosphatemia: Replete with potassium phosphate. 4. Acute pancreatitis: Secondary to ETOH use. The patient is currently n.p.o. on IV hydration. Wi ll defer to primary team. 5. Diabetes: Continue Accu-Cheks and sliding scale. 6. Morbid obesity: Continue to monitor. 7. Gastrointestinal and deep vein thrombosis prophylaxis. Dictated By: STEVEN DEAL/ANIBAL Conf#: [id number] DID#: [id number]
--- NOTE | 2016-10-29 10:46 | PN ---
Date/Time of Note Date/Time of Note DATE: 10/29/16 TIME: 10:46 Assessment/Plan VTE Prophylaxis VTE Prophylaxis Intervention: SCD's Lines/Catheters IV Catheter Type (from Nrsg): Peripheral IV Urinary Cath still in place: No Assessment/Plan Assessment/Plan 51 yo M with pmhx DM2, morbid obesity, h/o acute pancreatitis here for abd pain 2/2 pancreatitis. Imaging without evidence of gallstones. Etio EtOH v DM. Labs also notable for significant metabolic acidosis with anion gap #pancreatitis: suspect 2/2 DM2 though BGs not markedly elevated -cont IVFs, trial of CLD per patietn request #metabolic acidosis with anion gap: suspect starvation ketoacidosis from poor PO in recent weeks; improving -renal on board #DM2 with suboptimal control: Per chart not on any meds at home. A1c yesterday 8.0 DM education visit will start metformin at discharge #chest pain: etio unclear. No evidence of ACS on serial troponins cardiology cs for stress test eval given cardiac RFs (DM2, obesity, fam hx htn) dispo: improvement in PO tolerance, PT eval DVT prophx: SCDs, SQH Subjective 24 Hr Interval Summary Free Text/Dictation Had long talk this AM with patient with aid of Indonesian language line Pt reports his chest pain has improved since yesterday but is still present Pt reports his abd pain is largely resolved and he would like to try eating Of note, pt reports he's been subsisting mostly on fruit juice/smoothies for the past three weeks because he has felt nauseated. States he checks his sugars at home and they are generally in the 140s-180s though when he "gets mad" they go higher. Exam/Review of Systems Vital Signs Vitals Vital Signs Date Time Temp Pulse Resp B/P Pulse Ox O2 Delivery O2 Flow Rate FiO2 10/29/16 08:25 108 10/29/16 07:59 3.0 10/29/16 07:54 98.4 18 134/84 99 10/27/16 19:37 Room Air Intake and Output 10/28/16 10/28/16 10/29/16 14:59 22:59 06:59 Intake Total 1000 ml 1000 ml 1250 ml Output Total 1700 ml Balance 1000 ml -700 ml 1250 ml Exam nad no mrg lungs clear obese no le edema 5/5 strength bl U and LEs Results Result Diagram: 10/29/16 0650 10/29/16 0650 Results 24 hrs Laboratory Tests Test 10/28/16 12:40 10/28/16 12:48 10/28/16 14:51 10/28/16 17:10 Blood Gas Specimen Source Blood arterial Arterial Blood Date Drawn 10/28/2016 1:51:38 PM Arterial Blood pH (Temp corrected) 7.180 *L Arterial Blood pCO2 (Temp correct) 35.4 Arterial Blood pO2 (Temp corrected) 85.2 Arterial Blood HCO3 12.9 L Arterial Blood Base Excess -14.5 L Arterial Blood Oxygen Saturation 95.7 Timmy Test ACCEPTAB Arterial Blood Gas Puncture Site Right Radial Arterial Blood Carboxyhemoglobin 0.2 Arterial Blood Methemoglobin 0.5 Blood Gas A-a O2 Differential 65.5 H Oxyhemoglobin Percent 95.0 Total Hemoglobin 15.4 Blood Gas Temperature 37.0 Blood Gas Modality NASAL CANNULA FiO2 27.0 Blood Gas Critical Value Read Back Cortez NIÑO RN Blood Gas Notified Whom JLD Blood Gas Notified Time 10/28/2016 2:06:06 PM Urine Color YELLOW Urine Clarity CLEAR Urine pH 6.0 Urine Specific [place] >=1.030 H Urine Ketones 3+ H Urine Nitrite NEGATIVE Urine Bilirubin 2+ H Urine Ictotest POSITIVE Urine Urobilinogen 0.2 E.U./dL Urine Leukocyte Esterase NEGATIVE Urine Microscopic RBC 0-2 Urine Microscopic WBC 0-2 Urine Squamous Epithelial Cells RARE Urine Hyaline Casts RARE Urine Granular Casts RARE Urine Hemoglobin 3+ H Urine Random Creatinine 147.21 Urine Random Sodium 61 Urine Glucose 0.25% H Urine Total Protein 167.0 H Bedside Glucose 205 Lactic Acid Level 0.9 Creatine Kinase 121 Creatine Kinase Index 1.4 Creatinine Kinase MB (Mass) 1.71 Troponin I < 0.012 Test 10/28/16 18:39 10/28/16 19:58 10/29/16 00:27 10/29/16 01:02 Bedside Glucose 234 H 271 H 268 H Creatine Kinase 113 Creatine Kinase Index 1.5 Creatinine Kinase MB (Mass) 1.65 Troponin I < 0.012 Test 10/29/16 04:34 10/29/16 05:00 10/29/16 06:50 10/29/16 08:49 Bedside Glucose 235 H 217 Blood Gas Specimen Source Blood arterial Arterial Blood Date Drawn 10/29/2016 4:50:05 AM Arterial Blood pH (Temp corrected) 7.271 *L Arterial Blood pCO2 (Temp correct) 41.6 Arterial Blood pO2 (Temp corrected) 65.8 L Arterial Blood HCO3 18.7 L Arterial Blood Base Excess -7.8 L Arterial Blood Oxygen Saturation 94.6 L Timmy Test ACCEPTAB Arterial Blood Gas Puncture Site Left Radial Arterial Blood Carboxyhemoglobin 0.5 Arterial Blood Methemoglobin 0.4 Blood Gas A-a O2 Differential 99.2 H Oxyhemoglobin Percent 93.7 Total Hemoglobin 14.7 Blood Gas Temperature 37.0 Blood Gas Modality NASAL CANNULA FiO2 30.0 Blood Gas Critical Value Read Back KELBY CANSECO Blood Gas Notified Whom MA Blood Gas Notified Time 10/29/2016 5:00:29 AM White Blood Count 8.9 # Red Blood Count 4.36 L Hemoglobin 13.9 L Hematocrit 42.7 Mean Corpuscular Volume 97.9 Mean Corpuscular Hemoglobin 31.9 Mean Corpuscular Hemoglobin Concent 32.6 Red Cell Distribution Width 14.0 Platelet Count 71 #L Mean Platelet Volume 11.5 H Neutrophils % 78.9 H Lymphocytes % 4.0 L Monocytes % 13.7 H Eosinophils % 0.2 Basophils % 0.3 Nucleated Red Blood Cells % 0.0 Neutrophils # 7.0 Lymphocytes # 0.4 L Monocytes # 1.2 H Eosinophils # 0.0 Basophils # 0.0 Nucleated Red Blood Cells # 0.0 Sodium Level 133 L Potassium Level 3.5 Chloride Level 105 Carbon Dioxide Level 19 L Anion Gap 13 # Blood Urea Nitrogen 13 Creatinine 1.01 Glucose Level 225 H Calcium Level 7.9 L Phosphorus Level 0.6 L Magnesium Level 1.7 Creatine Kinase 82 Creatine Kinase Index 1.6 Creatinine Kinase MB (Mass) 1.31 Troponin I < 0.012 Lipase 4668 H Medications Medications Current Medications Metoclopramide HCl 10 mg 10 mg Q6 PRN IV NAUSEA Last administered on 10/27/16 22:16; Admin Dose 10 MG; Start 10/27/16 at 22:00 Sodium Chloride (NS) 1,000 ml @ 150 mls/hr Q6H40M IV Last administered on 04:19; Admin Dose 150 MLS/HR; Start 10/27/16 at 23:00 Lorazepam (Ativan) 1 mg Q4H PRN IV ANXIETY Last administered on 10/28/16 02:44 ; Admin Dose 1 MG; Start 10/27/16 at 23:00 Ondansetron HCl (Zofran Inj) 4 mg Q6H PRN IV NAUSEA AND/OR VOMITING Last administered on 10/28/16 10:30; Admin Dose 4 MG; Start 10/27/16 at 23:00 Acetaminophen (Tylenol Tab) 650 mg Q6H PRN PO PAIN LEVEL 1-3 OR FEVER; Start at 23:00 Insulin Aspart (Novolog Insulin Pen) NOVOLOG *MILD* ALGORI... Q4 SC Last administered on 10/29/16 08:53; Admin Dose 2 UNIT; Start 10/28/16 at 01:00 Miscellaneous Information 1 ea NOTE XX ; Start 10/28/16 at 00:15 Glucose (Glutose) 15 gm Q15M PRN PO DECREASED GLUCOSE; Start 10/28/16 at 00:15 Glucose (Glutose) 22.5 gm Q15M PRN PO DECREASED GLUCOSE; Start 10/28/16 at 00: 15 Dextrose (D50w Syringe) 25 ml Q15M PRN IV DECREASED GLUCOSE; Start 10/28/16 at 00:15 Dextrose (D50w Syringe) 50 ml Q15M PRN IV DECREASED GLUCOSE; Start 10/28/16 at 00:15 Glucagon (Glucagen) 1 mg Q15M PRN IM DECREASED GLUCOSE; Start 10/28/16 at 00:15 Glucose (Glutose) 15 gm Q15M PRN BUCCAL DECREASED GLUCOSE; Start 10/28/16 at 00 :15 Hydromorphone HCl 2.5 mg 2.5 mg Q4H PRN IV PAIN Last administered on 10/29/16 09:01; Admin Dose 2.5 MG; Start 10/28/16 at 17:00 Potassium Phosphate/Sodium Chloride (K Phos (Mm)/NS) 260 ml @ 65 mls/hr ONCE ONCE IVPB ; Start 10/29/16 at 11:00; Stop 10/29/16 at 14:59 Procedures Procedures lipase improved, a1c 8 CATHERINE GILBERT MD Oct 29, 2016 10:46
[2016-10-29] MEDS ORDERED: POTASSIUM PHOSPHATE 30 MM in SOD CHLORIDE 0.9% 250 ML IVPB ONE (11:00)
--- NOTE | 2016-10-29 17:43 | RADRPT ---
Vent Rate: 125 bpm RR Interval: 0 msec IN Interval: 190 msec QRS Duration: 78 msec QT Interval: 294 msec QTC Interval: 424 msec P-R-T Ethel: 62 - -19 - 20 degrees Sinus tachycardia Nonspecific T wave abnormality Abnormal ECG Electronically Signed By: Juan Valente [id number]
--- NOTE | 2016-10-29 20:28 | CONS ---
DATE OF ADMISSION: 10/27/2016 DATE OF CONSULTATION: 10/29/2016 REASON FOR CONSULTATION: Chest pain, assess for acute coronary syndrome. REQUESTING PHYSICIAN: Dr. Read from the hospitalist service. HISTORY OF PRESENT ILLNESS: Mr. Nolasco is a 51-year-old male with a history of hypertension and diab etes mellitus, who presented with complaints of epigastric pain ongoing for 3 weeks. Additionally, the patient had complaints of mild chest pain described as a pressure-like sensation at rest. Upon arrival in the emergency department, temperature 99, blood pressure 136/92, pulse 120, respiratory r ate 18, sat 96%. The patient's labs revealed white count 7.8, hemoglobin 6.0, platelet count 146. Sodium 144, potassium 3.7, creatinine of 1.52, BUN 19, AST 206, ALT 106. Troponin negative. Albumi n 5.5, lipase of 1920. Patient underwent abdominopelvic CT revealing mild peripancreatic inflammato ry changes suggesting acute pancreatitis, marked about steatosis, mild colonic diverticulosis, left inguinal hernia. The patient underwent a gallbladder ultrasound revealing ____ with mild cardiomega ly. The patient's electrocardiogram reveals sinus tachycardia of 125, normal axis, with diffuse non specific ST-T abnormalities. Patient subsequently admitted to the floor and since admit to floor is currently having troponins trended, returning negative x3. In addition, the patient's lipase, init ially increased to 17,000, is now down to 4668. The patient continues to have abdominal pain. PAST MEDICAL HISTORY: As above in HPI. MEDICATIONS CURRENTLY IN HOSPITAL: 1. Lantus. 2. Dilaudid p.r.n. 3. IV fluid hydration at 50 mL an hour. 4. Tylenol p.r.n. 5. Zofran p.r.n. 6. Ativan p.r.n. 7. Reglan p.r.n. ALLERGIES: NO KNOWN DRUG ALLERGIES. SOCIAL HISTORY: No tobacco, ETOH or illicit drug use. FAMILY HISTORY: No history of sudden cardiac or early CAD. REVIEW OF SYSTEMS: As above in HPI. CONSTITUTIONAL: No fevers, chills. PULMONARY: No current shortness of breath. CARDIOVASCULAR: Positive chest pain. GASTROINTESTINAL: No vomiting, but abdominal pain, pancreatitis. GENITOURINARY: No hematuria. MUSCULOSKELETAL: Degenerative joint disease. PSYCHIATRIC: The patient denies depression. NEUROLOGIC: No documented history of CVA. PHYSICAL EXAMINATION VITAL SIGNS: Temperature of 98.6, blood pressure most recently 120/71, respiratory rate 18, saturat ing 98% on 3 liters. GENERAL: The patient is alert, awake, complaining of abdominal pain. NECK: JVP approximately 9 cm of water. CHEST: Fair movement throughout with decreased breath sounds at bases bilaterally. HEART: Regular rate and rhythm. S1, S2, I/ systolic murmur, nondisplaced PMI. ABDOMEN: Hyperactive bowel sounds. Tenderness to palpation, greatest in epigastric region. EXTREMITIES: No pitting edema, 1+ pulses bilaterally, posterior tibial. LABORATORY DATA: As above in HPI, with most recent from today, white count of 8.9, hemoglobin 13.9, platelet count was 71. Sodium 133, potassium 3.5, creatinine 1.0, BUN 13. IMAGING STUDIES: As above in HPI. No further imaging studies for my review at this time. ECG: As above in HPI. No further electrocardiograms for my review at this time. IMPRESSION: 1. Chest pain, assess for acute coronary syndrome. Unclear if the patient has true coronary syndro me or possible pain referred from his pancreatitis. 2. Abnormal electrocardiogram with nonspecific ST abnormalities. 3. Tachycardia consistent with sinus tachycardia at this time. 4. Diabetes mellitus. 5. Hyponatremia. 6. Pancreatitis. 7. Anemia, mild. 8. Acidosis. RECOMMENDATIONS: 1. At this time, would maintain patient on telemetry monitoring to follow rhythm and rate control c losely. 2. Recheck serial EKGs to assess for any significant ongoing changes. EKG in the morning. EKG for any complaints of chest pain or change in rhythm. 3. I am going to check a 2D echo to further assess patient's ejection fraction, wall motion, and an y major valve abnormalities. 4. We will give patient IV push beta lorena at this time, as he is n.p.o. due to pancreatitis for improved heart rate control and for patient comfort. 5. When the patient's pancreatitis has improved, we will consider stress testing this patient to fu rther assess for the possibility of ischemia lending to the patient's symptoms of chest pain. Thank you for allowing me to take part in the care of this patient. I will continue to follow along very closely with you. Further recommendations will be made as the patient progresses through his inpatient hospital clinical course. Dictated By: TARAH LOZA/ANIBAL Conf#: [id number] DID#: [id number] CC: CATHERINE READ MD;*EndCC*
[2016-10-29] MEDS ORDERED: METOPROLOL 5 MG INJ IV PRN (20:30)
[2016-10-29] MEDS ORDERED: NITROGLYCERIN (SL) 0.4 MG TAB SL PRN (20:30)
[2016-10-29] MEDS ORDERED: MAGNESIUM SULFATE 2 GM/50 ML 50 ML IVPB ONE (20:30)
[2016-10-29] MEDS ORDERED: INSULIN GLARGINE [LANtus] 3 ML PEN SC SCH (21:00)
[2016-10-30] VITALS (11 sets, daily range): BP systolic 128–159; BP diastolic 76–89; PULSE 87–166; RESP 18
[2016-10-30] MEDS: ACCU-CHEK XX SCH (02:00)
[2016-10-30] MEDS: SOD CHLORIDE 0.9% 1,000 ML IV SCH ×2 (04:53→08:20)
[2016-10-30] MEDS: INSULIN ASPART [NOVOLOG] 3 ML PEN SC SCH ×4 (08:19→20:43)
[2016-10-30] MEDS: ACETAMINOPHEN 325 MG TAB PO PRN ×3 (08:19→20:24)
[2016-10-30 08:51] LABS: ANION GAP 17 (8-16); BLOOD UREA NITROGEN 8 mg/dl (7-20); CALCIUM 7.8 mg/dl (8.4-10.2); CARBON DIOXIDE 19 mmol/L (21-31); CHLORIDE 104 mmol/L (97-110); CREATININE 0.81 mg/dl (0.61-1.24); GLUCOSE 262 mg/dl (70-220); POTASSIUM 3.1 mmol/L (3.5-5.1); SODIUM 137 mmol/L (135-144)
[2016-10-30 09:05] LABS: PHOSPHORUS < 0.5 mg/dl (2.5-4.9)
--- NOTE | 2016-10-30 10:09 | PN ---
DATE: 10/30/2016 SUBJECTIVE: The patient is currently tolerating p.o., would like to eat more substantive food per p atient. No other acute events noted. No hemoptysis, hematemesis or hematochezia. OBJECTIVE: VITAL SIGNS: Blood pressure 139/87, respirations 18, pulse 65, temperature 98.5. HEENT: Head is normocephalic. NECK: Supple. HEART: Regular rate. LUNGS: Show diminished breath sounds at the bases. ABDOMEN: Soft, nontender to palpation. No rebound or guarding. EXTREMITIES: Negative for clubbing, cyanosis. No edema. DERMATOLOGIC: No rashes. MUSCULOSKELETAL: No joint effusions. NEUROLOGIC: No change in exam. MEDICATIONS: The patient's medications have been reviewed. LABORATORY DATA: Shows sodium 137, potassium 3.1, chloride 104, BUN 8, creatinine 0.81. ASSESSMENT AND PLAN: 1. Nonoliguric acute kidney injury with unknown baseline creatinine. Etiology secondary to hemodyn amics. Renal function is currently improved with IV hydration. At this point, continue current med ical management. We will decrease rate of IV fluids to 50 mL/hour. 2. Diabetic ketoacidosis. Etiology secondary to ETOH or starvation ketosis. The patient's acidosi s has been improving. Continue to monitor. No need for bicarbonate therapy. 3. Hypophosphatemia. Etiology is likely from total body depletion. Continue aggressive repletion with K-Phos 30 mEq IV x1. Continue oral sodium phosphate and monitor potassium levels. 4. Hypokalemia, replete with potassium chloride. 5. Acute pancreatitis secondary to ETOH. The patient is clinically improving, currently tolerating p.o. We will de-escalate IV fluids, continue to monitor. 6. Diabetes. Continue Accu-Cheks and insulin sliding scale. 7. Morbid obesity. Continue dietary modification. 8. Gastrointestinal and deep venous thrombosis prophylaxis. Dictated By: STEVEN DEAL/ANIBAL Conf#: [id number] DID#: [id number]
[2016-10-30] MEDS ORDERED: POTASSIUM PHOSPHATE 30 MM in SOD CHLORIDE 0.9% 250 ML IVPB ONE (10:30)
--- NOTE | 2016-10-30 12:42 | PN ---
Date/Time of Note Date/Time of Note DATE: 10/30/16 TIME: 12:40 Assessment/Plan VTE Prophylaxis VTE Prophylaxis Intervention: SCD's Lines/Catheters IV Catheter Type (from Nrs): Peripheral IV Urinary Cath still in place: No Assessment/Plan Assessment/Plan 51 yo M with pmhx DM2, morbid obesity, h/o acute pancreatitis here for abd pain 2/2 pancreatitis. Imaging without evidence of gallstones. Etio EtOH v DM. Labs also notable for significant metabolic acidosis with anion gap #pancreatitis: suspect 2/2 DM2 though BGs not markedly elevated -cont IVFs, advance diet to carb controlled #metabolic acidosis with anion gap: suspect starvation ketoacidosis from poor PO in recent weeks; improving -renal on board #DM2 with suboptimal control: Per chart not on any meds at home. A1c 8.0 DM education visit will start metformin at discharge cont lantus #chest pain: etio unclear. No evidence of ACS on serial troponins cardiology consulted for for stress test eval given cardiac RFs (DM2, obesity, fam hx htn) dispo: improvement in PO tolerance, PT eval DVT prophx: SCDs, SQH Subjective 24 Hr Interval Summary Free Text/Dictation Language line used to communicate with patient this afternoon He reports continued L sided abd pain, reports chest pain was present overnight. Troponin negative Pt denies feeling as though food sits in his stomach too long, early satiety or getting full early when eating Exam/Review of Systems Vital Signs Vitals Vital Signs Date Time Temp Pulse Resp B/P Pulse Ox O2 Delivery O2 Flow Rate FiO2 10/30/16 12:26 98.6 104 18 128/89 97 10/29/16 19:23 3.0 10/27/16 19:37 Room Air Intake and Output 10/29/16 10/29/16 10/30/16 15:00 23:00 07:00 Intake Total 2070 ml 1800 ml Output Total 300 ml 800 ml 700 ml Balance -300 ml 1270 ml 1100 ml Results Result Diagram: 10/29/16 0650 10/30/16 0653 Results 24 hrs Laboratory Tests Test 10/29/16 17:07 10/29/16 20:17 10/30/16 03:01 10/30/16 06:53 Bedside Glucose 210 277 H 192 Sodium Level 137 Potassium Level 3.1 L Chloride Level 104 Carbon Dioxide Level 19 L Anion Gap 17 H Blood Urea Nitrogen 8 Creatinine 0.81 Glucose Level 262 H Calcium Level 7.8 L Phosphorus Level < 0.5 L Magnesium Level 2.0 Troponin I < 0.012 Test 10/30/16 08:02 10/30/16 11:58 Bedside Glucose 229 H 210 Medications Medications Current Medications Metoclopramide HCl 10 mg 10 mg Q6 PRN IV NAUSEA Last administered on 10/27/16 22:16; Admin Dose 10 MG; Start 10/27/16 at 22:00 Sodium Chloride (NS) 1,000 ml @ 75 mls/hr [id number] IV Last administered on 08:20; Admin Dose 150 MLS/HR; Start 10/27/16 at 23:00 Lorazepam (Ativan) 1 mg Q4H PRN IV ANXIETY Last administered on 10/28/16 02:44 ; Admin Dose 1 MG; Start 10/27/16 at 23:00 Ondansetron HCl (Zofran Inj) 4 mg Q6H PRN IV NAUSEA AND/OR VOMITING Last administered on 10/28/16 10:30; Admin Dose 4 MG; Start 10/27/16 at 23:00 Acetaminophen (Tylenol Tab) 650 mg Q6H PRN PO PAIN LEVEL 1-3 OR FEVER Last administered on 10/30/16 08:19; Admin Dose 650 MG; Start 10/27/16 at 23:00 Miscellaneous Information 1 ea NOTE XX ; Start 10/28/16 at 00:15 Glucose (Glutose) 15 gm Q15M PRN PO DECREASED GLUCOSE; Start 10/28/16 at 00:15 Glucose (Glutose) 22.5 gm Q15M PRN PO DECREASED GLUCOSE; Start 10/28/16 at 00: 15 Dextrose (D50w Syringe) 25 ml Q15M PRN IV DECREASED GLUCOSE; Start 10/28/16 at 00:15 Dextrose (D50w Syringe) 50 ml Q15M PRN IV DECREASED GLUCOSE; Start 10/28/16 at 00:15 Glucagon (Glucagen) 1 mg Q15M PRN IM DECREASED GLUCOSE; Start 10/28/16 at 00:15 Glucose (Glutose) 15 gm Q15M PRN BUCCAL DECREASED GLUCOSE; Start 10/28/16 at 00 :15 Hydromorphone HCl (Dilaudid) 2.5 mg Q4H PRN IV PAIN Last administered on 20:12; Admin Dose 2.5 MG; Start 10/28/16 at 17:00 Diagnostic Test (Pha) (Accu-Chek) 1 ea 02 XX ; Start 10/30/16 at 02:00 Metoprolol Tartrate (Lopressor) 5 mg Q4H PRN IV HR><110 Hold SBP<100; Start 10/29/16 at 20:30 Nitroglycerin (Nitroglycerin (Sl Tab) 0.4 Mg) 1 tab Q5M PRN SL ANGINA; Start at 20:30 Insulin Glargine 18 unit 18 unit DAILY@20 SC ; Start 10/30/16 at 20:00 Potassium Phosphate/Sodium Chloride (K Phos (Mm)/NS) 260 ml @ 65 mls/hr ONCE ONCE IVPB Last administered on 10/30/16 11:53; Admin Dose 65 MLS/HR; Start 10/30 at 10:30; Stop 10/30/16 at 14:29 Sodium Phosphate (Neutra-Phos) 500 mg BID PO ; Start 10/30/16 at 21:00 Polyethylene Glycol (Miralax) 17 gm ONCE ONCE PO ; Start 10/30/16 at 13:00; Stop 10/30/16 at 13:01; Status UNV Polyethylene Glycol (Miralax) 17 gm DAILY PO ; Start 10/31/16 at 09:00; Status UNV Procedures Procedures serial troponins neg AG still present hyperglycemic CATHERINE GILBERT MD Oct 30, 2016 12:42
[2016-10-30] MEDS: POLYETHYLENE GLYCOL 17 GM PACKET PO ONE ×2 (13:07→14:06)
--- NOTE | 2016-10-30 16:53 | CONS ---
Date/Time of Note Date/Time of Note DATE: 10/30/16 TIME: 16:48 Assessment/Plan Assessment/Plan Chief Complaint/Hosp Course IMPRESSION: 1. Chest pain, assess for acute coronary syndrome. Unclear if the patient has true coronary syndrome or possible pain referred from his pancreatitis.- negative troponin x 3 2. Abnormal electrocardiogram with nonspecific ST abnormalities. 3. Tachycardia consistent with sinus tachycardia at this time. 4. Diabetes mellitus/DKA 5. Hyponatremia-improved 6. Pancreatitis. 7. Anemia, mild. 8. Acidosis-AG met acidosis Recc: -Tele -IVF hydration -insulin therapy -follow pancreatistis/lipase closely -Will f/u echo -stress when stable/over pancreatitis/DKA Problems: Consultation Date/Type/Reason Admit Date/Time October 27, 2016 at 20:42 Initial Consult Date 10/29/2016 Type of Consultation: Cardiology Reason for Consultation Chest pain Referring Provider: CATHERINE GILBERT MD Exam/Review of Systems Vital Signs Vitals Vital Signs Date Time Temp Pulse Resp B/P Pulse Ox O2 Delivery O2 Flow Rate FiO2 10/30/16 16:11 94 10/30/16 15:24 97.8 18 159/88 94 10/29/16 19:23 3.0 10/27/16 19:37 Room Air Intake and Output 10/29/16 10/29/16 10/30/16 15:00 23:00 07:00 Intake Total 2070 ml 1800 ml Output Total 300 ml 800 ml 700 ml Balance -300 ml 1270 ml 1100 ml Exam Review of Systems: CONSTITUTIONAL: No fevers, chills. PULMONARY: No sob CARDIOVASCULAR: No chest pain/palpitations GASTROINTESTINAL: No nausea/vomiting. GENITOURINARY: No hematuria/dysuria. MUSCULOSKELETAL: No myagias/arthalgias. PSYCHIATRIC: The patient denies depression. NEUROLOGIC: No weakness Constitutional: alert Psych: no complaints Head: normocephalic ENMT: mucosa pink and moist Neck: jvd (8 cm water), supple Respiratory: clear to auscultation Cardiovascular: regular rate and rhythm Gastrointestinal: soft, tender (in epigastric region) Musculoskeletal: muscle tone (normal) Extremities: edema (none) Neurological: other (No focal deficits) Results Result Diagram: 10/29/16 0650 10/30/16 0653 Results 24 hrs Laboratory Tests Test 10/29/16 17:07 10/29/16 20:17 10/30/16 03:01 10/30/16 06:53 Bedside Glucose 210 277 H 192 Sodium Level 137 Potassium Level 3.1 L Chloride Level 104 Carbon Dioxide Level 19 L Anion Gap 17 H Blood Urea Nitrogen 8 Creatinine 0.81 Glucose Level 262 H Calcium Level 7.8 L Phosphorus Level < 0.5 L Magnesium Level 2.0 Troponin I < 0.012 Test 10/30/16 08:02 10/30/16 11:58 10/30/16 16:39 Bedside Glucose 229 H 210 231 H Medications Medications Current Medications Metoclopramide HCl 10 mg 10 mg Q6 PRN IV NAUSEA Last administered on 10/27/16 22:16; Admin Dose 10 MG; Start 10/27/16 at 22:00 Sodium Chloride (NS) 1,000 ml @ 75 mls/hr [id number] IV Last administered on 08:20; Admin Dose 150 MLS/HR; Start 10/27/16 at 23:00 Lorazepam (Ativan) 1 mg Q4H PRN IV ANXIETY Last administered on 10/28/16 02:44 ; Admin Dose 1 MG; Start 10/27/16 at 23:00 Ondansetron HCl (Zofran Inj) 4 mg Q6H PRN IV NAUSEA AND/OR VOMITING Last administered on 10/28/16 10:30; Admin Dose 4 MG; Start 10/27/16 at 23:00 Acetaminophen (Tylenol Tab) 650 mg Q6H PRN PO PAIN LEVEL 1-3 OR FEVER Last administered on 10/30/16 14:06; Admin Dose 650 MG; Start 10/27/16 at 23:00 Miscellaneous Information 1 ea NOTE XX ; Start 10/28/16 at 00:15 Glucose (Glutose) 15 gm Q15M PRN PO DECREASED GLUCOSE; Start 10/28/16 at 00:15 Glucose (Glutose) 22.5 gm Q15M PRN PO DECREASED GLUCOSE; Start 10/28/16 at 00: 15 Dextrose (D50w Syringe) 25 ml Q15M PRN IV DECREASED GLUCOSE; Start 10/28/16 at 00:15 Dextrose (D50w Syringe) 50 ml Q15M PRN IV DECREASED GLUCOSE; Start 10/28/16 at 00:15 Glucagon (Glucagen) 1 mg Q15M PRN IM DECREASED GLUCOSE; Start 10/28/16 at 00:15 Glucose (Glutose) 15 gm Q15M PRN BUCCAL DECREASED GLUCOSE; Start 10/28/16 at 00 :15 Hydromorphone HCl (Dilaudid) 2.5 mg Q4H PRN IV PAIN Last administered on t 20:12; Admin Dose 2.5 MG; Start 10/28/16 at 17:00 Diagnostic Test (Pha) (Accu-Chek) 1 ea 02 XX ; Start 10/30/16 at 02:00 Metoprolol Tartrate (Lopressor) 5 mg Q4H PRN IV HR><110 Hold SBP<100; Start 10/29/16 at 20:30 Nitroglycerin (Nitroglycerin (Sl Tab) 0.4 Mg) 1 tab Q5M PRN SL ANGINA; Start at 20:30 Insulin Glargine (Lantus) 18 unit DAILY@20 SC ; Start 10/30/16 at 20:00 Sodium Phosphate (Neutra-Phos) 500 mg BID PO ; Start 10/30/16 at 21:00 Polyethylene Glycol (Miralax) 17 gm DAILY PO ; Start 10/31/16 at 09:00 TARAH GARCIA Oct 30, 2016 16:53
--- NOTE | 2016-10-30 17:19 | RADRPT ---
Echocardiogram Report Patient Name: HOME CARDOZA Gender: Male Date: 1965 Study Date: 30-Oct-2016 Belt Changer: [place] Location: I Ref. Physician: TARAH CRAIG Quality: Good Procedures: Transthoracic echocardiogram with complete 2D, M-Mode, and doppler examination. Indications: Chest Pain. 2D/M Mode Doppler Measurement Value Normal Ranges Measurement Value Normal Ranges LVIDd 2D 4.0 3.5 - 5.6 cm AV Peak Alli 1.6 m/sec LVIDs 2D 2.3 2.1 - 4.1 cm AV Peak PG 10.0 mmHg FS 2D 42.8 % LVOT Peak Alli 1.2 m/sec LVPWd 2D 1.2 0.6 - 1.1 cm LVOT Peak PG 6.0 mmHg IVSd 2D 1.1 0.6 - 1.1 cm MV E Peak Alli 0.8 m/sec AoR Diam 2D 2.8 2.0 - 3.7 cm MV A Peak Alli 1.0 m/sec LA/Ao 2D 1 0 - 1 MV E/A 0.9 EDV 2D 65.9 cm3 MV Decel Time 123 msec ESV 2D 12.3 cm3 MV E/A 0.9 LA Dimen 2D 3.2 2.3 - 4.0 cm Findings Left Ventricle: Lower limits of normal systolic function. Normal left ventricular cavity size. Mild concentric left ventricular hypertrophy. Ejection fraction is visually estimated at 5055 %. Tissue Doppler/Mitral Doppler indices are consistent with impaired relaxation (Stage I diastolic dysfunction). Right Ventricle: Normal right ventricular size. Normal right ventricular systolic function. Left Atrium: The left atrium is normal in size. Right Atrium: The right atrium is normal in size. Mitral Valve: Normal appearance and function of the mitral valve with trace physiologic regurgitation. Aortic Valve: Normal appearance of the aortic valve. No significant aortic stenosis or insufficiency. Tricuspid Valve: Normal appearance and function of the tricuspid valve with trace physiologic regurgitation. Normal right ventricular systolic pressure. Pulmonic Valve: Normal pulmonic valve appearance. Pericardium: Normal pericardium with no significant pericardial effusion. Aorta: Normal aortic root. IVC: Normal size and normal respiratory collapse consistent with normal right atrial pressure. Conclusions 1.Lower limits of normal systolic function. Normal left ventricular cavity size. Mild concentric left ventricular hypertrophy. Ejection fraction is visually estimated at 50-55 %. Tissue Doppler/Mitral Doppler indices are consistent with impaired relaxation (Stage I diastolic dysfunction). 2.Normal appearance and function of the mitral valve with trace physiologic regurgitation. 3.Normal appearance and function of the tricuspid valve with trace physiologic regurgitation. Normal right ventricular systolic pressure. Electronically Signed By: Tarah Craig 30-Oct-2016 17:19:13 -0700 Patient Name: HOME CARDOZA Study Date: 30-Oct-[id number]
[2016-10-30] MEDS ORDERED: LORAZEPAM 1 MG TAB PO PRN (17:30)
[2016-10-30] MEDS ORDERED: INSULIN GLARGINE [LANtus] 3 ML PEN SC SCH (20:00)
[2016-10-30] MEDS: NEUTRA-PHOS 250 MG PACKET PO SCH (20:24)
[2016-10-30] MEDS: ONDANSETRON 4 MG INJ IV PRN (20:28)
[2016-10-30] MEDS: HYDROmorphONE 2 MG/ML SYG IV PRN (22:35)
--- NOTE | 2016-10-30 23:59 | RADRPT ---
Vent Rate: 100 bpm RR Interval: 0 msec NH Interval: 164 msec QRS Duration: 88 msec QT Interval: 362 msec QTC Interval: 466 msec P-R-T [place]: 61 - -20 - 33 degrees Normal sinus rhythm Normal ECG Electronically Signed By: Juan Valente [id number]
[2016-10-31] VITALS (14 sets, daily range): BP systolic 119–165; BP diastolic 82–99; PULSE 87–150; RESP 19–20
[2016-10-31] MEDS: SOD CHLORIDE 0.9% 1,000 ML IV SCH (00:20)
[2016-10-31] MEDS: ACCU-CHEK XX SCH (02:37)
[2016-10-31] MEDS: HYDROmorphONE 2 MG/ML SYG IV PRN ×4 (04:10→22:47)
[2016-10-31] MEDS: METOCLOPRAMIDE 10 MG INJ IV PRN (06:00)
[2016-10-31 07:58] LABS: CALCIUM 7.4 mg/dl (8.4-10.2); CREATININE 0.67 mg/dl (0.61-1.24); MAGNESIUM 1.5 mg/dl (1.7-2.5); PHOSPHORUS 1.4 mg/dl (2.5-4.9)
--- NOTE | 2016-10-31 08:21 | CONS ---
Date/Time of Note Date/Time of Note DATE: 10/31/16 TIME: 08:18 Consult Date/Type/Reason Admit Date/Time October 27, 2016 at 20:42 Initial Consult Date Type of Consultation: neph Ordering Provider: CATHERINE GILBERT MD Subjective The patient is currently tolerating p.o. o other acute events noted. No hemoptysis, hematemesis or hematochezia. tolerates meds and therapies. poc reviewed with OBJECTIVE: HEENT: Head is normocephalic. NECK: Supple. HEART: Regular rate. LUNGS: Show diminished breath sounds at the bases. ABDOMEN: Soft, nontender to palpation. No rebound or guarding. EXTREMITIES: Negative for clubbing, cyanosis. No edema. DERMATOLOGIC: No rashes. MUSCULOSKELETAL: No joint effusions. NEUROLOGIC: No change in exam. MEDICATIONS: The patient's medications have been reviewed. Objective Vital Signs Date Time Temp Pulse Resp B/P Pulse Ox O2 Delivery O2 Flow Rate FiO2 10/31/16 08:11 87 10/31/16 07:47 98.3 19 135/89 98 10/31/16 00:37 3.0 10/27/16 19:37 Room Air Intake and Output 10/30/16 10/30/16 10/31/16 15:00 23:00 07:00 Intake Total 1400 ml 1425 ml Output Total 1700 ml 500 ml Balance -300 ml 925 ml Results/Medications Result Diagram: 10/29/16 0650 10/30/16 0653 Results 24 hrs Laboratory Tests Test 10/30/16 11:58 10/30/16 16:39 10/30/16 20:37 10/31/16 02:29 Bedside Glucose 210 231 H 218 170 Test 10/31/16 08:02 Bedside Glucose 178 Medications Current Medications Metoclopramide HCl 10 mg 10 mg Q6 PRN IV NAUSEA Last administered on 10/31/16 06:00; Admin Dose 10 MG; Start 10/27/16 at 22:00 Sodium Chloride (NS) 1,000 ml @ 75 mls/hr [id number] IV Last administered on 08:20; Admin Dose 150 MLS/HR; Start 10/27/16 at 23:00 Ondansetron HCl (Zofran Inj) 4 mg Q6H PRN IV NAUSEA AND/OR VOMITING Last administered on 10/30/16 20:28; Admin Dose 4 MG; Start 10/27/16 at 23:00 Acetaminophen (Tylenol Tab) 650 mg Q6H PRN PO PAIN LEVEL 1-3 OR FEVER Last administered on 10/30/16 20:24; Admin Dose 650 MG; Start 10/27/16 at 23:00 Miscellaneous Information 1 ea NOTE XX ; Start 10/28/16 at 00:15 Glucose (Glutose) 15 gm Q15M PRN PO DECREASED GLUCOSE; Start 10/28/16 at 00:15 Glucose (Glutose) 22.5 gm Q15M PRN PO DECREASED GLUCOSE; Start 10/28/16 at 00: 15 Dextrose (D50w Syringe) 25 ml Q15M PRN IV DECREASED GLUCOSE; Start 10/28/16 at 00:15 Dextrose (D50w Syringe) 50 ml Q15M PRN IV DECREASED GLUCOSE; Start 10/28/16 at 00:15 Glucagon (Glucagen) 1 mg Q15M PRN IM DECREASED GLUCOSE; Start 10/28/16 at 00:15 Glucose (Glutose) 15 gm Q15M PRN BUCCAL DECREASED GLUCOSE; Start 10/28/16 at 00 :15 Hydromorphone HCl (Dilaudid) 2.5 mg Q4H PRN IV PAIN Last administered on 04:10; Admin Dose 2.5 MG; Start 10/28/16 at 17:00 Diagnostic Test (Pha) (Accu-Chek) 1 ea 02 XX Last administered on 10/31/16 02: 37; Admin Dose 1 EA; Start 10/30/16 at 02:00 Metoprolol Tartrate (Lopressor) 5 mg Q4H PRN IV HR><110 Hold SBP<100; Start 10/29/16 at 20:30 Nitroglycerin (Nitroglycerin (Sl Tab) 0.4 Mg) 1 tab Q5M PRN SL ANGINA; Start at 20:30 Insulin Glargine (Lantus) 18 unit DAILY@20 SC Last administered on 10/30/16 20: 43; Admin Dose 18 UNIT; Start 10/30/16 at 20:00 Sodium Phosphate (Neutra-Phos) 500 mg BID PO Last administered on 6/2/17at 20: 24; Admin Dose 500 MG; Start 10/30/16 at 21:00 Polyethylene Glycol (Miralax) 17 gm DAILY PO ; Start 10/31/16 at 09:00 Lorazepam (Ativan) 1 mg Q4H PRN PO ANXIETY Last administered on 10/30/16t 18:53 ; Admin Dose 1 MG; Start 10/30/16 at 17:30 Assessment/Plan Chief Complaint/Hosp Course 1. Nonoliguric acute kidney injury with unknown baseline creatinine. Etiology secondary to hemodynamics. Renal function is currently improved with IV hydration. At this point, continue current medical management. watch for diuretic phase of faith with electrolyte wasting. replaced k. 2. Diabetic ketoacidosis. Etiology secondary to ETOH or starvation ketosis. The patient's acidosis has been improving. Continue to monitor. No need for bicarbonate therapy. 3. Hypophosphatemia. Etiology is likely from total body depletion. Continue aggressive repletion with K-Phos 30 mEq IV x1. Continue oral sodium phosphate and monitor potassium levels. 4. Hypokalemia, repleted with potassium chloride. 5. Acute pancreatitis secondary to ETOH. The patient is clinically improving, currently tolerating p.o. We will de-escalate IV fluids, continue to monitor. 6. Diabetes. Continue Accu-Cheks and insulin sliding scale. 7. Morbid obesity. Continue dietary modification. 8. Gastrointestinal and deep venous thrombosis prophylaxis. Problems: ROHAN CASTAÑEDA MD Oct 31, 2016 08:21
[2016-10-31] MEDS: POLYETHYLENE GLYCOL 17 GM PACKET PO SCH (08:28)
[2016-10-31] MEDS: NEUTRA-PHOS 250 MG PACKET PO SCH ×2 (08:28→21:00)
[2016-10-31] MEDS: INSULIN ASPART [NOVOLOG] 3 ML PEN SC SCH ×5 (08:30→21:00)
[2016-10-31 08:37] LABS: POTASSIUM 2.8 mmol/L (3.5-5.1)
[2016-10-31] MEDS ORDERED: POTASSIUM CHLORIDE (SR) 20 MEQ TAB PO STA (08:40)
--- NOTE | 2016-10-31 11:29 | CONS ---
Date/Time of Note Date/Time of Note DATE: 10/31/16 TIME: 11:27 Assessment/Plan Assessment/Plan Additional Assessment/Plan 1. Chest pain, assess for acute coronary syndrome. Unclear if the patient has true coronary syndrome or possible pain referred from his pancreatitis.- negative troponin x 3 - med rx for now 2. Abnormal electrocardiogram with nonspecific ST abnormalities. 3. Tachycardia consistent with sinus tachycardia at this time- with pancreatitis, on therapy - likely related to DM/pancreatitis - OK to hydrate 4. Diabetes mellitus/DKA- better now 5. Hyponatremia-improved 6. Pancreatitis - on IVF 7. Anemia, mild. 8. Acidosis-AG met acidosis Consultation Date/Type/Reason Admit Date/Time October 27, 2016 at 20:42 Initial Consult Date Type of Consultation: neph Referring Provider: CATHERINE GILBERT MD 24 HR Interval Summary Free Text/Dictation NO acute change - BP stable - sinus tach, OK to hydrate as needed ROS: No fever, no chills, no nausea, no vomiting, no diarrhea/constipation No recent weight changes No chest pain, no PND, no orthopnea No dizziness, blurred vision No thirst, no heat or cold intolerance Exam/Review of Systems Vital Signs Vitals Vital Signs Date Time Temp Pulse Resp B/P Pulse Ox O2 Delivery O2 Flow Rate FiO2 10/31/16 10:14 150 10/31/16 07:47 98.3 19 135/89 98 10/31/16 00:37 3.0 10/27/16 19:37 Room Air Intake and Output 10/30/16 10/30/16 10/31/16 15:00 23:00 07:00 Intake Total 1400 ml 1425 ml Output Total 1700 ml 500 ml Balance -300 ml 925 ml Exam General: WN/WD/NAD, AOx 3 HEENT: Unicetric/atraumatic/EOMI (follows commands) NECK: JVD elevated, no thyromegaly Lymph: no lymphadenopathy HEART: regular with no S3, II/ systolic murmur at apex LUNGS: Coarse sounds ABD: soft, NT, ND, +BS : Intact Neuro: non focal SKIN: chronic changes EXT: trace edema Results Result Diagram: 10/29/16 0650 10/31/16 0705 Results 24 hrs Laboratory Tests Test 10/30/16 11:58 10/30/16 16:39 10/30/16 20:37 10/31/16 02:29 Bedside Glucose 210 231 H 218 170 Test 10/31/16 07:05 10/31/16 08:02 Sodium Level 138 Potassium Level 2.8 *L Chloride Level 103 Carbon Dioxide Level 22 Anion Gap 16 Blood Urea Nitrogen 7 Creatinine 0.67 Glucose Level 178 Calcium Level 7.4 L Phosphorus Level 1.4 L Magnesium Level 1.5 L Bedside Glucose 178 Medications Medications Current Medications Metoclopramide HCl (Reglan) 10 mg Q6 PRN IV NAUSEA Last administered on 06:00; Admin Dose 10 MG; Start 10/27/16 at 22:00 Ondansetron HCl (Zofran Inj) 4 mg Q6H PRN IV NAUSEA AND/OR VOMITING Last administered on 10/30/16 20:28; Admin Dose 4 MG; Start 10/27/16 at 23:00 Acetaminophen (Tylenol Tab) 650 mg Q6H PRN PO PAIN LEVEL 1-3 OR FEVER Last administered on 10/30/16 20:24; Admin Dose 650 MG; Start 10/27/16 at 23:00 Miscellaneous Information 1 ea NOTE XX ; Start 10/28/16 at 00:15 Glucose (Glutose) 15 gm Q15M PRN PO DECREASED GLUCOSE; Start 10/28/16 at 00:15 Glucose (Glutose) 22.5 gm Q15M PRN PO DECREASED GLUCOSE; Start 10/28/16 at 00: 15 Dextrose (D50w Syringe) 25 ml Q15M PRN IV DECREASED GLUCOSE; Start 10/28/16 at 00:15 Dextrose (D50w Syringe) 50 ml Q15M PRN IV DECREASED GLUCOSE; Start 10/28/16 at 00:15 Glucagon (Glucagen) 1 mg Q15M PRN IM DECREASED GLUCOSE; Start 10/28/16 at 00:15 Glucose (Glutose) 15 gm Q15M PRN BUCCAL DECREASED GLUCOSE; Start 10/28/16 at 00 :15 Hydromorphone HCl (Dilaudid) 2.5 mg Q4H PRN IV PAIN Last administered on 08:29; Admin Dose 2.5 MG; Start 10/28/16 at 17:00 Diagnostic Test (Pha) (Accu-Chek) 1 ea 02 XX Last administered on 10/31/16 02: 37; Admin Dose 1 EA; Start 10/30/16 at 02:00 Metoprolol Tartrate (Lopressor) 5 mg Q4H PRN IV HR><110 Hold SBP<100; Start 10/29/16 at 20:30 Nitroglycerin (Nitroglycerin (Sl Tab) 0.4 Mg) 1 tab Q5M PRN SL ANGINA; Start at 20:30 Insulin Glargine (Lantus) 18 unit DAILY@20 SC Last administered on 10/30/16 20: 43; Admin Dose 18 UNIT; Start 10/30/16 at 20:00 Sodium Phosphate (Neutra-Phos) 500 mg BID PO Last administered on 10/31/16 08: 28; Admin Dose 500 MG; Start 10/30/16 at 21:00 Polyethylene Glycol (Miralax) 17 gm DAILY PO Last administered on 10/31/16 08: 28; Admin Dose 17 GM; Start 10/31/16 at 09:00 Lorazepam (Ativan) 1 mg Q4H PRN PO ANXIETY Last administered on 10/30/16 18:53 ; Admin Dose 1 MG; Start 10/30/16 at 17:30 Potassium Chloride (Klor-Con 20) 40 meq ONCE ONCE PO ; Start 10/31/16 at 12:00; Stop 10/31/16 at 12:01 FRIDA GELLER MD Oct 31, 2016 11:29
[2016-10-31] MEDS ORDERED: POTASSIUM CHLORIDE (SR) 20 MEQ TAB PO ONE (12:00)
[2016-10-31] MEDS ORDERED: MAGNESIUM SULFATE 2 GM/50 ML 50 ML IVPB ONE (14:00)
--- NOTE | 2016-10-31 14:36 | PN ---
Date/Time of Note Date/Time of Note DATE: 10/31/16 TIME: 14:34 Assessment/Plan VTE Prophylaxis VTE Prophylaxis Intervention: SCD's Lines/Catheters IV Catheter Type (from Nrs): Peripheral IV Urinary Cath still in place: No Assessment/Plan Assessment/Plan 51 yo M with pmhx DM2, morbid obesity, h/o acute pancreatitis here for abd pain 2/2 pancreatitis. Imaging without evidence of gallstones. Etio EtOH v DM. Labs also notable for significant metabolic acidosis with anion gap #pancreatitis: suspect 2/2 DM2/hyperglycemia now tolerating diabetic diet, IVFs stopped #metabolic acidosis with anion gap: likely mild DKA -renal on board to aid with lyte correction #DM2 with suboptimal control: Per chart not on any meds at home. A1c 8.0 sp DM education visit cont [place] NEEDS PCP FOR DM FOLLOW UP #chest pain: etio unclear. No evidence of ACS on serial troponins likely referred pain from pancreatics cardiology consulted for for stress test eval given cardiac RFs (DM2, obesity, fam hx htn) will likely discharge with referral for outpatient stress though will dw cardiology prior to discharge dispo: likely home in AM. Needs PCP for DM f/u to prevent readmission DVT prophx: SCDs, SQH Subjective 24 Hr Interval Summary Free Text/Dictation Language line used to facilitate communication with patient and his Pt states abd pain significantly improved. I had a long talk with patient about the need for improved BG control to prevent additional episodes of pancreatitis. dw pt that a1c ("3 month blood sugar test") reflects poor control and that only way to prevent additional pancreatitis episodes is to get BG under control. Dw pt that he's been needing insulin to keep BGs under control during his stay and I advise he be discharged on insulin. Pt currently without PCP, had a glucometer some time ago but doesn' t have one now. pt tolerating PO very well, of note copious amounts of fruit juice noted throughout the room Exam/Review of Systems Vital Signs Vitals Vital Signs Date Time Temp Pulse Resp B/P Pulse Ox O2 Delivery O2 Flow Rate FiO2 10/31/16 12:06 107 10/31/16 11:49 98.3 19 119/82 93 10/31/16 00:37 3.0 10/27/16 19:37 Room Air Intake and Output 6/07/1710/30/16 10/31/16 15:00 23:00 07:00 Intake Total 1400 ml 1425 ml Output Total 1700 ml 500 ml Balance -300 ml 925 ml Exam anxious, sitting up rrr no mrg lungs clear obese no le edema a1c 8 BGs reviewed AG improved lytes improving Results Result Diagram: 10/29/16 0650 10/31/16 0705 Results 24 hrs Laboratory Tests Test 10/30/16 16:39 10/30/16 20:37 10/31/16 02:29 10/31/16 07:05 Bedside Glucose 231 H 218 170 Sodium Level 138 Potassium Level 2.8 *L Chloride Level 103 Carbon Dioxide Level 22 Anion Gap 16 Blood Urea Nitrogen 7 Creatinine 0.67 Glucose Level 178 Calcium Level 7.4 L Phosphorus Level 1.4 L Magnesium Level 1.5 L Test 10/31/16 08:02 10/31/16 12:09 Bedside Glucose 178 233 H Medications Medications Current Medications Metoclopramide HCl (Reglan) 10 mg Q6 PRN IV NAUSEA Last administered on 06:00; Admin Dose 10 MG; Start 10/27/16 at 22:00 Ondansetron HCl (Zofran Inj) 4 mg Q6H PRN IV NAUSEA AND/OR VOMITING Last administered on 10/30/16 20:28; Admin Dose 4 MG; Start 10/27/16 at 23:00 Acetaminophen (Tylenol Tab) 650 mg Q6H PRN PO PAIN LEVEL 1-3 OR FEVER Last administered on 10/30/16 20:24; Admin Dose 650 MG; Start 10/27/16 at 23:00 Miscellaneous Information 1 ea NOTE XX ; Start 10/28/16 at 00:15 Glucose (Glutose) 15 gm Q15M PRN PO DECREASED GLUCOSE; Start 10/28/16 at 00:15 Glucose (Glutose) 22.5 gm Q15M PRN PO DECREASED GLUCOSE; Start 10/28/16 at 00: 15 Dextrose (D50w Syringe) 25 ml Q15M PRN IV DECREASED GLUCOSE; Start 10/28/16 at 00:15 Dextrose (D50w Syringe) 50 ml Q15M PRN IV DECREASED GLUCOSE; Start 10/28/16 at 00:15 Glucagon (Glucagen) 1 mg Q15M PRN IM DECREASED GLUCOSE; Start 10/28/16 at 00:15 Glucose (Glutose) 15 gm Q15M PRN BUCCAL DECREASED GLUCOSE; Start 10/28/16 at 00 :15 Hydromorphone HCl (Dilaudid) 2.5 mg Q4H PRN IV PAIN Last administered on 08:29; Admin Dose 2.5 MG; Start 10/28/16 at 17:00 Diagnostic Test (Pha) (Accu-Chek) 1 ea 02 XX Last administered on 10/31/16 02: 37; Admin Dose 1 EA; Start 10/30/16 at 02:00 Metoprolol Tartrate (Lopressor) 5 mg Q4H PRN IV HR><110 Hold SBP<100; Start 10/29/16 at 20:30 Nitroglycerin (Nitroglycerin (Sl Tab) 0.4 Mg) 1 tab Q5M PRN SL ANGINA; Start at 20:30 Sodium Phosphate (Neutra-Phos) 500 mg BID PO Last administered on 10/31/16 08: 28; Admin Dose 500 MG; Start 10/30/16 at 21:00 Polyethylene Glycol (Miralax) 17 gm DAILY PO Last administered on 10/31/16 08: 28; Admin Dose 17 GM; Start 10/31/16 at 09:00 Lorazepam 1 mg 1 mg Q4H PRN PO ANXIETY Last administered on 10/30/16 18:53; Admin Dose 1 MG; Start 10/30/16 at 17:30 Magnesium Sulfate (Magnesium Sulfate 2 Gm/50 ml) 50 ml @ 25 mls/hr ONCE ONCE IVPB Last administered on 10/31/16 14:06; Admin Dose 25 MLS/HR; Start 10/31/16 at 14:00; Stop 10/31/16 at 15:59 Insulin Glargine (Lantus) 20 unit DAILY@20 SC ; Start 10/31/16 at 20:00 CATHERINE GILBERT MD Oct 31, 2016 14:36
[2016-10-31] MEDS ORDERED: INSULIN GLARGINE [LANtus] 3 ML PEN SC SCH (20:00)
[2016-10-31] MEDS ORDERED: hydrALAzine 20 MG INJ IV PRN (21:00)
[2016-10-31] MEDS ORDERED: LORAZEPAM 2 MG INJ IV PRN (21:00)
[2016-11-01] VITALS (9 sets, daily range): BP systolic 120–154; BP diastolic 80–94; PULSE 88–109; RESP 18–19
[2016-11-01] MEDS ORDERED: ACCU-CHEK XX SCH (02:00)
[2016-11-01] MEDS: HYDROmorphONE 2 MG/ML SYG IV PRN ×3 (04:06→15:21)
[2016-11-01 07:42] LABS: ADD SCAN DIFF NO
[2016-11-01 07:44] LABS: ABNORMAL IP MESSAGE 1; HEMATOCRIT 41.4 % (42.0-52.0); HEMOGLOBIN 14.1 g/dl (14.0-18.0); MEAN CORPUSCULAR HEMOGLOBIN 31.5 pg (29.0-33.0); MEAN CORPUSCULAR HGB CONC 34.1 g/dl (32.0-37.0); MEAN CORPUSCULAR VOLUME 92.6 fl (82.0-101.0); MEAN PLATELET VOLUME 11.3 fl (7.4-10.4); RED BLOOD COUNT 4.47 10^6/ul (4.70-6.10); RED CELL DISTRIBUTION WIDTH 14.1 % (11.5-14.5); WHITE BLOOD COUNT 9.7 10^3/ul (4.8-10.8)
[2016-11-01 07:46] LABS: PLATELET COUNT 131 10^3/UL (140-415)
--- NOTE | 2016-11-01 07:58 | CONS ---
Date/Time of Note Date/Time of Note DATE: 11/01/16 TIME: 07:56 Consult Date/Type/Reason Admit Date/Time October 27, 2016 at 20:42 Type of Consultation: neph Ordering Provider: CATHERINE GILBERT MD Subjective The patient is currently tolerating p.o. o other acute events noted. No hemoptysis, hematemesis or hematochezia. tolerates meds and therapies. poc reviewed with OBJECTIVE: HEENT: Head is normocephalic. NECK: Supple. HEART: Regular rate. LUNGS: Show diminished breath sounds at the bases. ABDOMEN: Soft, nontender to palpation. No rebound or guarding. EXTREMITIES: Negative for clubbing, cyanosis. No edema. DERMATOLOGIC: No rashes. MUSCULOSKELETAL: No joint effusions. NEUROLOGIC: No change in exam. Objective Vital Signs Date Time Temp Pulse Resp B/P Pulse Ox O2 Delivery O2 Flow Rate FiO2 11/01/16 07:43 97.9 85 19 150/81 94 11/01/16 00:32 3.0 Intake and Output 10/31/16 10/31/16 11/01/16 15:00 23:00 07:00 Intake Total 600 ml 700 ml Output Total 4 ml 850 ml Balance 596 ml -150 ml Results/Medications Result Diagram: 11/01/16 0655 10/31/16 0705 Results 24 hrs Laboratory Tests Test 10/31/16 08:02 10/31/16 12:09 10/31/16 17:07 10/31/16 17:09 Bedside Glucose 178 233 H 354 H 344 H Test 10/31/16 20:09 11/01/16 02:19 11/01/16 06:55 Bedside Glucose 309 H 179 White Blood Count 9.7 Red Blood Count 4.47 L Hemoglobin 14.1 Hematocrit 41.4 L Mean Corpuscular Volume 92.6 Mean Corpuscular Hemoglobin 31.5 Mean Corpuscular Hemoglobin Concent 34.1 Red Cell Distribution Width 14.1 Platelet Count 131 #L Mean Platelet Volume 11.3 H Medications Current Medications Metoclopramide HCl (Reglan) 10 mg Q6 PRN IV NAUSEA Last administered on t 06:00; Admin Dose 10 MG; Start 10/27/16 at 22:00 Ondansetron HCl (Zofran Inj) 4 mg Q6H PRN IV NAUSEA AND/OR VOMITING Last administered on 10/30/16 20:28; Admin Dose 4 MG; Start 10/27/16 at 23:00 Acetaminophen (Tylenol Tab) 650 mg Q6H PRN PO PAIN LEVEL 1-3 OR FEVER Last administered on 10/30/16 20:24; Admin Dose 650 MG; Start 10/27/16 at 23:00 Miscellaneous Information 1 ea NOTE XX ; Start 10/28/16 at 00:15 Hydromorphone HCl (Dilaudid) 2.5 mg Q4H PRN IV PAIN Last administered on 04:06; Admin Dose 2.5 MG; Start 10/28/16 at 17:00 Metoprolol Tartrate (Lopressor) 5 mg Q4H PRN IV HR><110 Hold SBP<100; Start 10/29/16 at 20:30 Nitroglycerin (Nitroglycerin (Sl Tab) 0.4 Mg) 1 tab Q5M PRN SL ANGINA; Start at 20:30 Sodium Phosphate (Neutra-Phos) 500 mg BID PO Last administered on 10/31/16 08: 28; Admin Dose 500 MG; Start 10/30/16 at 21:00 Polyethylene Glycol (Miralax) 17 gm DAILY PO Last administered on 10/31/16 08: 28; Admin Dose 17 GM; Start 10/31/16 at 09:00 Insulin Glargine (Lantus) 25 unit DAILY@20 SC ; Start 11/01/16 at 20:00 Diagnostic Test (Pha) (Accu-Chek) 1 ea 02 XX Last administered on 11/01/16 02: 21; Admin Dose 1 EA; Start 11/01/16 at 02:00 Lorazepam (Ativan) 1 mg Q4 PRN IV ANXIETY Last administered on 10/31/16 21:16; Admin Dose 1 MG; Start 10/31/16 at 21:00 Hydralazine HCl (Apresoline) 10 mg Q6H PRN IV ELEVATED BLOOD PRESSURE; Start at 21:00 Assessment/Plan Chief Complaint/Hosp Course 1. Nonoliguric acute kidney injury with unknown baseline creatinine. Etiology secondary to hemodynamics. Renal function is currently improved with IV hydration. At this point, continue current medical management. watch for diuretic phase of faith with electrolyte wasting. monitor serial labs. 2. Diabetic ketoacidosis. Etiology secondary to ETOH or starvation ketosis. The patient's acidosis has been improving. Continue to monitor. No need for bicarbonate therapy. 3. Hypophosphatemia. Etiology is likely from total body depletion and poss saponification from pancreatitis. Continue aggressive repletion. Continue oral sodium phosphate and monitor potassium levels. 4. Hypokalemia, repleted with potassium chloride. 5. Acute pancreatitis secondary to ETOH. The patient is clinically improving, currently tolerating p.o. We will de-escalate IV fluids, continue to monitor. 6. Diabetes. Continue Accu-Cheks and insulin sliding scale. 7. Morbid obesity. Continue dietary modification. 8. Gastrointestinal and deep venous thrombosis prophylaxis. Problems: ROHAN CASTAÑEDA MD Nov 01, 2016 07:58
[2016-11-01 08:00] LABS: CALCIUM 8.5 mg/dl (8.4-10.2); CREATININE 0.67 mg/dl (0.61-1.24); MAGNESIUM 1.6 mg/dl (1.7-2.5); PHOSPHORUS 2.1 mg/dl (2.5-4.9); POTASSIUM 3.1 mmol/L (3.5-5.1)
[2016-11-01] MEDS: POLYETHYLENE GLYCOL 17 GM PACKET PO SCH (08:30)
[2016-11-01] MEDS: NEUTRA-PHOS 250 MG PACKET PO SCH (08:31)
[2016-11-01] MEDS: INSULIN ASPART [NOVOLOG] 3 ML PEN SC SCH ×3 (08:32→17:41)
[2016-11-01 09:14] LABS: BASOPHIL # 0.1 10^3/ul (0.0-0.1); EOSINOPHILS # 0.1 10^3/ul (0.0-0.5); LYMPHOCYTES # 1.1 10^3/ul (0.8-2.9)
[2016-11-01 09:16] LABS: PLATELET ESTIMATE PLT APPEAR ADEQUATE
[2016-11-01] MEDS ORDERED: SOD PHOS MONO/DIBAS 250 MG TAB PO ONE (10:00)
[2016-11-01] MEDS ORDERED: MAGNESIUM SULFATE 3 GM in SOD CHLORIDE 0.9% 100 ML IVPB ONE (10:00)
--- NOTE | 2016-11-01 11:16 | PN ---
Date/Time of Note Date/Time of Note DATE: 11/01/16 TIME: 11:15 Assessment/Plan VTE Prophylaxis VTE Prophylaxis Intervention: SCD's Lines/Catheters IV Catheter Type (from Nrsg): Saline Lock Urinary Cath still in place: No Assessment/Plan Assessment/Plan 51 yo M with pmhx DM2, morbid obesity, h/o acute pancreatitis here for abd pain 2/2 pancreatitis. Imaging without evidence of gallstones. Etio EtOH v DM. Labs also notable for significant metabolic acidosis with anion gap. Also with chest pain earlier this admission, now resolved. #pancreatitis: suspect 2/2 DM2/hyperglycemia now tolerating diabetic diet, IVFs stopped several days ago #metabolic acidosis with anion gap: likely mild DKA -renal on board to aid with lyte correction #DM2 with suboptimal control: Per chart not on any meds at home. A1c 8.0 sp DM education visit cont [place] NEEDS PCP FOR DM FOLLOW UP, NEEDS GLUCOMETER AT DISCHARGE. ADVISE INSULIN AT DISCHARGE #chest pain: etio unclear. No evidence of ACS on serial troponins likely referred pain from pancreatics cardiology consulted for for stress test eval given cardiac RFs (DM2, obesity, fam hx htn) will likely discharge with referral for outpatient stress though will dw cardiology prior to discharge pt NPO at [place] in case cardiolgy service able to coordinate for tomorrow dispo: likely home in AM. Needs PCP for DM f/u to prevent readmission, pending possible stress test DVT prophx: SCDs, SQH brief off service note 51 yo M with poorly controlled DM2 (a1c 8) admitted for acute pancreatitis most likely 2/2 hyperglycemia. Started on lantus. Pt with c/o chest pain, seen by cardiology. Ruled out for ACS with serial enzymes and EKG. PLAN dw cardiology to see if stress test will be done in or outpatient additional diabetic teaching pcp f/u at end of week for BG re eval Subjective 24 Hr Interval Summary Free Text/Dictation Pt reports feeling a little dysphoric. No SI/HI. States the hospital bed is not that comfortable and he's not been sleeping very well. Exam/Review of Systems Vital Signs Vitals Vital Signs Date Time Temp Pulse Resp B/P Pulse Ox O2 Delivery O2 Flow Rate FiO2 11/01/16 08:00 88 11/01/16 07:43 97.9 19 150/81 94 11/01/16 00:32 3.0 Intake and Output 10/31/16 10/31/16 11/01/16 15:00 23:00 07:00 Intake Total 600 ml 700 ml Output Total 4 ml 850 ml Balance 596 ml -150 ml Exam nad, wearing baseball cap and bluetooth earpiece no mrg lungs clear obese no rashes BGs reviewed Results Result Diagram: 11/01/16 0655 11/01/16 0500 Results 24 hrs Laboratory Tests Test 10/31/16 12:09 10/31/16 17:07 10/31/16 17:09 10/31/16 20:09 Bedside Glucose 233 H 354 H 344 H 309 H Test 11/01/16 02:19 11/01/16 05:00 11/01/16 06:55 11/01/16 08:29 Bedside Glucose 179 278 H Sodium Level 139 Potassium Level 3.1 L Chloride Level 99 Carbon Dioxide Level 26 Anion Gap 17 H Blood Urea Nitrogen 8 Creatinine 0.67 Glucose Level 221 H Calcium Level 8.5 Phosphorus Level 2.1 L Magnesium Level 1.6 L White Blood Count 9.7 Red Blood Count 4.47 L Hemoglobin 14.1 Hematocrit 41.4 L Mean Corpuscular Volume 92.6 Mean Corpuscular Hemoglobin 31.5 Mean Corpuscular Hemoglobin Concent 34.1 Red Cell Distribution Width 14.1 Platelet Count 131 #L Mean Platelet Volume 11.3 H Neutrophils % 62.0 Band Neutrophils % 4.0 Lymphocytes % 11.0 L Monocytes % 21.0 H Eosinophils % 1.0 Basophils % 1.0 Neutrophils # 6.0 Lymphocytes # 1.1 Monocytes # 2.0 H Eosinophils # 0.1 Basophils # 0.1 Platelet Estimate PLT APPEAR ADEQUATE Medications Medications Current Medications Metoclopramide HCl (Reglan) 10 mg Q6 PRN IV NAUSEA Last administered on 06:00; Admin Dose 10 MG; Start 10/27/16 at 22:00 Ondansetron HCl (Zofran Inj) 4 mg Q6H PRN IV NAUSEA AND/OR VOMITING Last administered on 10/30/16 20:28; Admin Dose 4 MG; Start 10/27/16 at 23:00 Acetaminophen (Tylenol Tab) 650 mg Q6H PRN PO PAIN LEVEL 1-3 OR FEVER Last administered on 10/30/16 20:24; Admin Dose 650 MG; Start 10/27/16 at 23:00 Miscellaneous Information 1 ea NOTE XX ; Start 10/28/16 at 00:15 Hydromorphone HCl (Dilaudid) 2.5 mg Q4H PRN IV PAIN Last administered on 10:19; Admin Dose 2.5 MG; Start 10/28/16 at 17:00 Metoprolol Tartrate (Lopressor) 5 mg Q4H PRN IV HR><110 Hold SBP<100; Start 10/29/16 at 20:30 Nitroglycerin (Nitroglycerin (Sl Tab) 0.4 Mg) 1 tab Q5M PRN SL ANGINA; Start at 20:30 Sodium Phosphate (Neutra-Phos) 500 mg BID PO Last administered on 11/01/16 08: 31; Admin Dose 500 MG; Start 10/30/16 at 21:00 Polyethylene Glycol (Miralax) 17 gm DAILY PO Last administered on 11/01/16 08: 30; Admin Dose 17 GM; Start 10/31/16 at 09:00 Insulin Glargine (Lantus) 25 unit DAILY@20 SC ; Start 11/01/16 at 20:00 Diagnostic Test (Pha) (Accu-Chek) 1 ea 02 XX Last administered on 11/01/16 02: 21; Admin Dose 1 EA; Start 11/01/16 at 02:00 Lorazepam (Ativan) 1 mg Q4 PRN IV ANXIETY Last administered on 10/31/16 21:16; Admin Dose 1 MG; Start 10/31/16 at 21:00 Hydralazine HCl 10 mg 10 mg Q6H PRN IV ELEVATED BLOOD PRESSURE; Start 10/31/16 at 21:00 Magnesium Sulfate/ Sodium Chloride (Magnesium Sulfate/NS) 106 ml @ 35.333 mls/ hr ONCE ONCE IVPB Last administered on 11/01/16 10:15; Admin Dose 35.333 MLS/ HR; Start 11/01/16 at 10:00; Stop 11/01/16 at 12:59 CATHERINE GILBERT MD Nov 01, 2016 11:16
[2016-11-01] MEDS ORDERED: LISINOPRIL 10 MG TAB PO ONE (11:30)
--- NOTE | 2016-11-01 12:15 | CONS ---
Date/Time of Note Date/Time of Note DATE: 11/01/16 TIME: 12:13 Assessment/Plan Assessment/Plan Additional Assessment/Plan 1. Chest pain, assess for acute coronary syndrome. Unclear if the patient has true coronary syndrome or possible pain referred from his pancreatitis.- negative troponin x 3 - med rx for now - med rx advised, doubt ischemia 2. Abnormal electrocardiogram with nonspecific ST abnormalities. 3. Tachycardia consistent with sinus tachycardia at this time- with pancreatitis, on therapy - likely related to DM/pancreatitis - OK to hydrate 4. Diabetes mellitus/DKA- better now - IMPROVED 5. Hyponatremia-improved 6. Pancreatitis - on IVF 7. Anemia, mild. 8. Acidosis-AG met acidosis - better now Consultation Date/Type/Reason Admit Date/Time October 27, 2016 at 20:42 Type of Consultation: neph Referring Provider: CATHERINE GILBERT MD 24 HR Interval Summary Free Text/Dictation No acute events - better overall - con't pancreatitis Rx ROS: No fever, no chills, no nausea, no vomiting, no diarrhea/constipation No recent weight changes No chest pain, no PND, no orthopnea No dizziness, blurred vision No thirst, no heat or cold intolerance Exam/Review of Systems Vital Signs Vitals Vital Signs Date Time Temp Pulse Resp B/P Pulse Ox O2 Delivery O2 Flow Rate FiO2 11/01/16 11:50 98.6 102 19 141/94 93 11/01/16 00:32 3.0 Intake and Output 10/31/16 10/31/16 11/01/16 15:00 23:00 07:00 Intake Total 600 ml 700 ml Output Total 4 ml 850 ml Balance 596 ml -150 ml Exam General: WN/WD/NAD, AOx 3 HEENT: Unicetric/atraumatic/EOMI (follows commands) NECK: JVD elevated, no thyromegaly Lymph: no lymphadenopathy HEART: regular with no S3, II/ systolic murmur at apex LUNGS: Coarse sounds ABD: soft, NT, ND, +BS : Intact Neuro: non focal SKIN: chronic changes EXT: trace edema Results Result Diagram: 11/01/16 0655 11/01/16 0500 Results 24 hrs Laboratory Tests Test 10/31/16 17:07 10/31/16 17:09 10/31/16 20:09 11/01/16 02:19 Bedside Glucose 354 H 344 H 309 H 179 Test 11/01/16 05:00 11/01/16 06:55 11/01/16 08:29 Sodium Level 139 Potassium Level 3.1 L Chloride Level 99 Carbon Dioxide Level 26 Anion Gap 17 H Blood Urea Nitrogen 8 Creatinine 0.67 Glucose Level 221 H Calcium Level 8.5 Phosphorus Level 2.1 L Magnesium Level 1.6 L White Blood Count 9.7 Red Blood Count 4.47 L Hemoglobin 14.1 Hematocrit 41.4 L Mean Corpuscular Volume 92.6 Mean Corpuscular Hemoglobin 31.5 Mean Corpuscular Hemoglobin Concent 34.1 Red Cell Distribution Width 14.1 Platelet Count 131 #L Mean Platelet Volume 11.3 H Neutrophils % 62.0 Band Neutrophils % 4.0 Lymphocytes % 11.0 L Monocytes % 21.0 H Eosinophils % 1.0 Basophils % 1.0 Neutrophils # 6.0 Lymphocytes # 1.1 Monocytes # 2.0 H Eosinophils # 0.1 Basophils # 0.1 Platelet Estimate PLT APPEAR ADEQUATE Bedside Glucose 278 H Medications Medications Current Medications Metoclopramide HCl (Reglan) 10 mg Q6 PRN IV NAUSEA Last administered on 06:00; Admin Dose 10 MG; Start 10/27/16 at 22:00 Ondansetron HCl (Zofran Inj) 4 mg Q6H PRN IV NAUSEA AND/OR VOMITING Last administered on 10/30/16 20:28; Admin Dose 4 MG; Start 10/27/16 at 23:00 Acetaminophen (Tylenol Tab) 650 mg Q6H PRN PO PAIN LEVEL 1-3 OR FEVER Last administered on 10/30/16 20:24; Admin Dose 650 MG; Start 10/27/16 at 23:00 Miscellaneous Information 1 ea NOTE XX ; Start 10/28/16 at 00:15 Hydromorphone HCl (Dilaudid) 2.5 mg Q4H PRN IV PAIN Last administered on 10:19; Admin Dose 2.5 MG; Start 10/28/16 at 17:00 Nitroglycerin (Nitroglycerin (Sl Tab) 0.4 Mg) 1 tab Q5M PRN SL ANGINA; Start at 20:30 Sodium Phosphate (Neutra-Phos) 500 mg BID PO Last administered on 11/01/16 08: 31; Admin Dose 500 MG; Start 10/30/16 at 21:00 Polyethylene Glycol (Miralax) 17 gm DAILY PO Last administered on 11/01/16 08: 30; Admin Dose 17 GM; Start 10/31/16 at 09:00 Diagnostic Test (Pha) (Accu-Chek) 1 ea 02 XX Last administered on 11/01/16 02: 21; Admin Dose 1 EA; Start 11/01/16 at 02:00 Lorazepam 1 mg 1 mg Q4 PRN IV ANXIETY Last administered on 10/31/16 21:16; Admin Dose 1 MG; Start 10/31/16 at 21:00 Magnesium Sulfate/ Sodium Chloride (Magnesium Sulfate/NS) 106 ml @ 35.333 mls/ hr ONCE ONCE IVPB Last administered on 11/01/16 10:15; Admin Dose 35.333 MLS/ HR; Start 11/01/16 at 10:00; Stop 11/01/16 at 12:59 Insulin Glargine (Lantus) 25 unit DAILY@20 SC ; Start 11/01/16 at 20:00 Lisinopril (Zestril) 10 mg DAILY PO ; Start 11/02/16 at 09:00 FRIDA GELLER MD Nov 01, 2016 12:15
--- NOTE | 2016-11-01 16:29 | PDOCDIS ---
Discharge Instructions DIAGNOSIS Discharge Diagnosis: acute pancreatitis, chest pain, hyperglycemia, metabolic acidosis CONDITION Patient Condition: Good HOME CARE INSTRUCTIONS: Diet Instructions: Diabetic/carb controlled ACTIVITY: Activity Restrictions: No Restrictions FOLLOW UP/APPOINTMENTS Appointments follow up with your regular doctor this week to check your blood sugars and to discuss your back pain and recheck your electrolytes follow up with the land examiner as per their recommendation follow up with the nephrologists as previously advised REFERRALS Agency Name and SCHOOL/WORK RELEASE May return to School/Work with: No Restrictions CATHERINE GILBERT MD Nov 01, 2016 16:29
[2016-11-01] MEDS ORDERED: LANT3I SC (16:36)
[2016-11-01] MEDS ORDERED: BLOO-53 MC (16:36)
[2016-11-01] MEDS ORDERED: LISI10TA2 PO (16:36)
[2016-11-01] MEDS ORDERED: ACET325T40 PO (16:36)
[2016-11-01] MEDS ORDERED: LANC1COM MC (17:40)
[2016-11-01] MEDS ORDERED: LIDO76.5 TP (17:43)
[2016-11-01] MEDS ORDERED: POTA10TA97 PO (17:51)
[2016-11-01] MEDS ORDERED: NEUTPHOS PO (17:55)
--- NOTE | 2016-11-01 18:02 | DS ---
Date/Time of Note Date/Time of Note DATE: 11/01/16 TIME: 17:59 Discharge Summary Admission/Discharge Info Admit Date/Time October 27, 2016 at 20:42 Final Diagnosis Acute pancreatitis, hyperglycemia, Type 2 diabetes mellitus uncontrolled, chest pain, abdominal pain, hypophosphatemia, hypokalemia, chronic low back pain, morbid obesity, anion gap metabolic acidosis Patient Condition: Good Consults nephrology, cardiology Procedures CT A/P 5.30 IMPRESSION: Mild peripancreatic inflammatory changes suggestive of acute pancreatitis. Marked hepatic steatosis. Mild colonic diverticulosis. Tiny, fat-containing left inguinal hernia. Abd US 5.30 IMPRESSION: Heterogeneous liver with mild hepatomegaly. TTE: 6.1 Conclusions 1. Lower limits of normal systolic function. Normal left ventricular cavity size. Mild concentric left ventricular hypertrophy. Ejection fraction is visually estimated at 50-55 %. Tissue Doppler/Mitral Doppler indices are consistent with impaired relaxation (Stage I diastolic dysfunction). 2. Normal appearance and function of the mitral valve with trace physiologic regurgitation. 3. Normal appearance and function of the tricuspid valve with trace physiologic regurgitation. Normal right ventricular systolic pressure. serial troponins negative a1c 8 Hx of Present Illness Patient is a 51-year-old male with hypertension and diabetes who presents with epigastric pain. He has had pain for 3 weeks. He is vomiting his medications. He said that he cannot eat or keep anything down. He also had a fever recently. He has had no treatment as of yet. He does not currently have a primary doctor. Hospital Course 51 yo M with pmhx diabetes not on any meds, previous h/o pancreatitis admitted for abd pain 2/2 pancreatitis. Pain controlled with medications and biliary rest. Pt able to tolerate diabetic diet by date of discharge. Given no finding of gallstones on imaging, triglycerides only in 250s, cause of pancreatitis thought to be EtOH v idiopathic Labs though with persistent anion gap metabolic acidosis. Renal consulted, thought to be 2/2 ketoacidosis from starvation v DM v EtOH. Treated with increased glycemic control. Pt started on lantus for hyperglycemia, advised to f /u with PCP this week for further med titration. ~HD2 pt with c/o chest pain. Pt was seen by cardiology and chest pain was thought to be noncardiac in nature most likely 2/2 pancreatitis. Serial cardiac enzymes nl, TTE as above. Pt requesting tramadol for chronic LBP, advised to f/u with PCP for controlled substances. Instead he was rx'ed APAP and topical agents. Pt able to ambulate around room freely at time of discharge. States pain has been present for 2 years without any recent changes. Does not report fever, weight loss, or loss of control or bowel/bladder function, therefore urgent imaging deferred. Of note, pt's SBPs consistently in the 150s. Given his DM, pt started on lisinopril 10. Pt advised to f/u with PCP within 7 days for ChemP, BG eval. Pt rx'ed glucometer and advised to check sugars at home Home Meds Active Scripts Sodium Phosphate* (Phos-Nak*) 250 Mg/Pkt Soln, 250 MG PO BID for 7 Days, #14 PACKET Prov:CATHERINE GILBERT MD 11/01/16 Lidocaine HCl (Aspercreme) 76.5 Gm Cream..g., 76.5 GM TP DAILY Y for PAIN, #1 TUB 0 Refills Prov:CATHERINE GILBERT MD 11/01/16 Lancets/Blood Glucose Strips (Fora [id number] Lanct-Str) 1 Each Combo..pkg , 1 BOX MC, #1 Prov:CATHERINE GILBERT MD 11/01/16 Blood-Glucose Meter (Blood Glucose Monitor) 1 Each Each, 1 EACH MC, #1 Prov:CATHERINE GILBERT MD 11/01/16 Insulin Glargine* (Lantus*) 100 Unit/Ml Soln, 25 UNIT SC DAILY@20 for 14 Days, # 2 VIAL Prov:CATHERINE GILBERT MD 11/01/16 Acetaminophen (MAPAP) 325 Mg Tablet, 325 MG PO Q6H Y for PAIN for 7 Days, #14 TAB Prov:CATHERINE GILBERT MD 11/01/16 Lisinopril* (Lisinopril*) 10 Mg Tablet, 10 MG PO DAILY for 7 Days, TAB Prov:CATHERINE GILBERT MD 11/01/16 Follow-up Plan f/u with PCP within 7 days for BG check, ChemP Follow up with cardiology as outpatient for CP re eval, stress test consideration Follow up with nephrology in 1-2 weeks Primary Care Provider [facility] Time spent on discharge: > 30 minutes Pending Labs Laboratory Tests Test 10/31/16 20:09 11/01/16 02:19 11/01/16 05:00 11/01/16 06:55 Bedside Glucose 309mg/dL (70-220) 179mg/dL (70-220) Sodium Level 139mmol/L (135-144) Potassium Level 3.1mmol/L (3.5-5.1) Chloride Level 99mmol/L (97-110) Carbon Dioxide Level 26mmol/L (21-31) Anion Gap 17 (8-16) Blood Urea Nitrogen 8mg/dl (7-20) Creatinine 0.67mg/dl (0.61-1.24) Glucose Level 221mg/dl (70-220) Calcium Level 8.5mg/dl (8.4-10.2) Phosphorus Level 2.1mg/dl (2.5-4.9) Magnesium Level 1.6mg/dl (1.7-2.5) White Blood Count 9.710^3/ul (4.8-10.8) Red Blood Count 4.4710^6/ul (4.70-6.10) Hemoglobin 14.1g/dl (14.0-18.0) Hematocrit 41.4% (42.0-52.0) Mean Corpuscular Volume 92.6fl (82.0-101.0) Mean Corpuscular Hemoglobin 31.5pg (29.0-33.0) Mean Corpuscular Hemoglobin Concent 34.1g/dl (32.0-37.0) Red Cell Distribution Width 14.1% (11.5-14.5) Platelet Count 20393^3/UL (140-415) Mean Platelet Volume 11.3fl (7.4-10.4) Neutrophils % 62.0% (39.0-77.0) Band Neutrophils % 4.0% (0.0-5.0) Lymphocytes % 11.0% (15.0-51.0) Monocytes % 21.0% (0.0-11.0) Eosinophils % 1.0% (0.0-7.0) Basophils % 1.0% (0.0-2.0) Neutrophils # 6.010^3/ul (1.6-7.5) Lymphocytes # 1.110^3/ul (0.8-2.9) Monocytes # 2.010^3/ul (0.3-0.9) Eosinophils # 0.110^3/ul (0.0-0.5) Basophils # 0.110^3/ul (0.0-0.1) Platelet Estimate PLT APPEAR ADEQUATE Test 11/01/16 08:29 11/01/16 12:21 Bedside Glucose 278mg/dL (70-220) 269mg/dL (70-220) CATHERINE GILBERT MD Nov 01, 2016 18:01
[2016-11-01] MEDS ORDERED: INSULIN GLARGINE [LANtus] 3 ML PEN SC SCH ×3 (20:00)
[2016-11-02] MEDS ORDERED: LISINOPRIL 10 MG TAB PO SCH (09:00)
== END 2016-11-01 18:59 | disposition home or self-care (01) | DRG 439 ==
LOC: E/R 18:33 → MS4 20:42
PROVIDERS: ADMIT Family Medicine; ATTEND Family Medicine
DX: K85.90 Acute pancreatitis without necrosis or infection, unspecified (principal); N17.9 Acute kidney failure, unspecified; E87.2 Acidosis; E11.65 Type 2 diabetes mellitus with hyperglycemia; E87.1 Hypo-osmolality and hyponatremia; E66.01 Morbid (severe) obesity due to excess calories; R07.9 Chest pain, unspecified; E83.39 Other disorders of phosphorus metabolism; E87.6 Hypokalemia; G89.29 Other chronic pain; M54.5 Low back pain; I10 Essential (primary) hypertension; Z68.36 Body mass index [BMI] 36.0-36.9, adult
CPT/HCPCS: 36415; 36600; 74176; 76705; 80048; 80053; 80061; 80306; 80307; 81001; 81003; 82043; 82550; 82553; 82803; 82962; 83036; 83605; 83690; 83735; 84100; 84155; 84300; 84443; 84484; 85025; 85610; 85730; 86140; 86704; 86709; 86803; 87340; 93005; 93306; 96361; 96374; 96375; 96376; C9113; J1170; J1815; J2060; J2405; J2543; J2765; J3411; J3475; J7030; J7050

== ENCOUNTER 2017-04-10 18:32 | Inpatient (IN) | payer OTHER ==
[~2017-04-10] VITALS: Ht 180.3 cm; Wt 107.2 kg
[~2017-04-10 18:32] MED LIST: ACET325T40 PO; BLOO-53 MC; LANC1COM MC; LANT3I SC; LIDO76.5 TP; LISI10TA2 PO; NEUTPHOS PO
[2017-04-10 18:44] VITALS: Ht 180.3 cm; Wt 107.2 kg
[2017-04-10 20:20] LABS: ABNORMAL IP MESSAGE 1; HEMATOCRIT 39.6 % (42.0-52.0); HEMOGLOBIN 13.6 g/dl (14.0-18.0); MEAN CORPUSCULAR HEMOGLOBIN 31.7 pg (29.0-33.0); MEAN CORPUSCULAR HGB CONC 34.3 g/dl (32.0-37.0); MEAN CORPUSCULAR VOLUME 92.3 fl (82.0-101.0); PLATELET COUNT 94 10^3/UL (140-415); POSITIVE DIFF @See below; RED BLOOD COUNT 4.29 10^6/ul (4.70-6.10); RED CELL DISTRIBUTION WIDTH 14.6 % (11.5-14.5); WHITE BLOOD COUNT 4.8 10^3/ul (4.8-10.8)
[2017-04-10 20:25] LABS: ALANINE AMINOTRANSFERASE 78 IU/L (13-69); ALBUMIN 4.3 g/dl (3.3-4.9); ALBUMIN/GLOBULIN RATIO 1.22; ALKALINE PHOSPHATASE 77 IU/L (42-121); ANION GAP 21 (8-16); ASPARTATE AMINO TRANSFERASE 106 IU/L (15-46); BILIRUBIN,INDIRECT 0.5 mg/dl (0-1.1); BILIRUBIN,TOTAL 0.5 mg/dl (0.2-1.3); BLOOD UREA NITROGEN 6 mg/dl (7-20); CALCIUM 8.9 mg/dl (8.4-10.2); CARBON DIOXIDE 18 mmol/L (21-31); CHLORIDE 101 mmol/L (97-110); CREATININE 0.75 mg/dl (0.61-1.24); GLUCOSE 253 mg/dl (70-220); POTASSIUM 3.4 mmol/L (3.5-5.1); SODIUM 137 mmol/L (135-144); TOTAL PROTEIN 7.8 g/dl (6.1-8.1)
[2017-04-10] MEDS ORDERED: OLANZAPINE 5 MG TAB PO ONE (20:30)
[2017-04-10 20:31] LABS: ACETAMINOPHEN < 10.0 ug/ml (10.0-30.0); SALICYLATE < 1.0 mg/dl (5.0-30.0)
--- NOTE | 2017-04-10 20:38 | RADRPT ---
PROCEDURE: CT Brain without contrast. CLINICAL INDICATION: Altered level of consciousness. TECHNIQUE: A CT of the brain without contrast was performed utilizing axial sections from the skul l base through the vertex. The patient was scanned without intravenous contrast enhancement. Sagitta l and coronal reformatted images were obtained using the data from the axial images. Total exam DLP is 810.25 mGy-cm. CTDIvol is 42.81 mGy. One or more of the following dose reduction techniques we re used: Automated exposure control, adjustment of the mA and/or kV according to patient size, use o f iterative reconstruction technique. DICOM images are available. COMPARISON: None available FINDINGS: There is normal swanson-white matter differentiation. The ventricles and cisterns are normal. There is no intracranial hemorrhage or space-occupying lesion. There is no skull fracture or lytic lesion. IMPRESSION: 1. Normal noncontrast CT scan of the brain. RPTAT: QQ .Rashad Baptiste MD, MD Date Time Electronically viewed and signed by .Rashad Baptiste MD, on 04/10/2017 20:37 .R/
[2017-04-10] MEDS ORDERED: ACETAMINOPHEN 325 MG TAB PO ONE (21:00)
--- NOTE | 2017-04-10 21:10 | PSY ---
Date/Time of Note Date/Time of Note DATE: 04/11/17 TIME: 00:03 Psychiatric Subjective Eval Consent Pt consented to telemedicine: Yes Subjective Evaluation Patient location: emergency Chief Complaint: PT IN WITH C/O "I'M SEEING THINGS. IT MAKES ME NERVOUS" Reason for consult: Halluciantion History of present illness HPI: The patient is a 52 yo male with etoh dependence and no reported psych hx, reports several weeks of AH and VH that are disturbing to him. Was vague but reports that there are numerous people that he sees and hears saying bad things about him. Denies drug use besides etoh. Denies any other psych hx or sxs. Reports that he would begin to think about killing himself if this were not to stop. 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 given the age of onset and temporal association with stopping heavy etoh use, also consider primarily psychosis, other drugs, as well as wernicke/korsakoff -parallel hx from family to confirm no ho psychosis -MRI of brain -daily thiamine 100mg po, mvi, folate 1mg po -recommend starting alcohol withdrawal protocol with prophylactic benzodiazepines, such as librium 50mg q6 hours titrate to symptoms and sedation -pt should be admitted to inpatient psych or medicine for this -this was d/w attending physician Medical history Problems Medical Problems: (1) Abdominal pain Status: Acute (2) Pancreatitis Status: Acute (3) Sepsis Status: Acute Allergies: Coded Allergies: No Known Allergy (Verified , 11/01/16) Social History Marital status: single Psychiatric Objective Eval Mental Status Examination: Laboratory Results Laboratory Tests Test 04/10/17 20:00 White Blood Count 4.810^3/ul Red Blood Count 4.2910^6/ul Hemoglobin 13.6g/dl Hematocrit 39.6% Mean Corpuscular Volume 92.3fl Mean Corpuscular Hemoglobin 31.7pg Mean Corpuscular Hemoglobin Concent 34.3g/dl Red Cell Distribution Width 14.6% Platelet Count 9410^3/UL Mean Platelet Volume 11.0fl Nucleated Red Blood Cells % 0.0/100WBC Sodium Level 137mmol/L Potassium Level 3.4mmol/L Chloride Level 101mmol/L Carbon Dioxide Level 18mmol/L Anion Gap 21 Blood Urea Nitrogen 6mg/dl Creatinine 0.75mg/dl Glucose Level 253mg/dl Calcium Level 8.9mg/dl Total Bilirubin 0.5mg/dl Direct Bilirubin 0.00mg/dl Indirect Bilirubin 0.5mg/dl Aspartate Amino Transf (AST/SGOT) 106IU/L Alanine Aminotransferase (ALT/SGPT) 78IU/L Alkaline Phosphatase 77IU/L Total Protein 7.8g/dl Albumin 4.3g/dl Globulin 3.50g/dl Albumin/Globulin Ratio 1.22 Salicylates Level < 1.0mg/dl Acetaminophen Level < 10.0ug/ml Ethyl Alcohol Level 58.0mg/dl JEFFERSON ASTORGA Apr 10, 2017 21:10
--- NOTE | 2017-04-10 21:19 | ERD ---
ER Documentation Chief Complaint Chief Complaint PT IN WITH C/O "I'M SEEING THINGS. IT MAKES ME NERVOUS" HPI 52-year-old male presents with visual hallucinations for the last 2 weeks as well as feeling is very off balance and lightheaded. Does have an occasional headache as well. States that he was a heavy alcohol user has recently stopped drinking alcohol and had symptoms since then. Is no psychiatric history. Does have diabetes. ROS All systems reviewed and are negative except as per history of present illness. Medications Home Meds Active Scripts Sodium Phosphate* (Phos-Nak*) 250 Mg/Pkt Soln, 250 MG PO BID for 7 Days, #14 PACKET Prov:CATHERINE GILBERT MD 11/01/16 Lidocaine HCl (Aspercreme) 76.5 Gm Cream..g., 76.5 GM TP DAILY Y for PAIN, #1 TUB 0 Refills Prov:CATHERINE GILBERT MD 11/01/16 Lancets/Blood Glucose Strips (Fora [id number] Lanct-Str) 1 Each Combo..pkg , 1 BOX MC, #1 Prov:CATHERINE GILBERT MD 11/01/16 Blood-Glucose Meter (Blood Glucose Monitor) 1 Each Each, 1 EACH MC, #1 Prov:CATHERINE GILBERT MD 11/01/16 Insulin Glargine* (Lantus*) 100 Unit/Ml Soln, 25 UNIT SC DAILY@20 for 14 Days, # 2 VIAL Prov:CATHERINE GILBERT MD 11/01/16 Acetaminophen (MAPAP) 325 Mg Tablet, 325 MG PO Q6H Y for PAIN for 7 Days, #14 TAB Prov:CATHERINE GILBERT MD 11/01/16 Lisinopril* (Lisinopril*) 10 Mg Tablet, 10 MG PO DAILY for 7 Days, TAB Prov:CATHERINE GILBERT MD 11/01/16 Allergies Allergies: Coded Allergies: No Known Allergy (Verified , 11/01/16) PMhx/Soc History of Surgery: Yes (TESTICULAR SURGERY) Anesthesia Reaction: No Hx Neurological Disorder: No Hx Respiratory Disorders: No Hx Cardiac Disorders: Yes (HTN) Hx Psychiatric Problems: No Hx Miscellaneous Medical Probl: Yes (DM) Hx Alcohol Use: Yes Hx Substance Use: No Hx Tobacco Use: Yes Smoking Status: Current every day smoker Physical Exam Vitals Vital Signs Date Time Temp Pulse Resp B/P Pulse Ox O2 Delivery O2 Flow Rate FiO2 04/10/17 18:44 97.5 108 18 133/95 98 Physical Exam Const: [] Head: Atraumatic Eyes: Normal Conjunctiva ENT: Normal External Ears, Nose and Mouth. Neck: Full range of motion..~ No meningismus. Resp: Clear to auscultation bilaterally Cardio: Regular rate and rhythm, no murmurs Abd: Soft, non tender, non distended. Normal bowel sounds Skin: No petechiae or rashes Back: No midline or flank tenderness Ext: No cyanosis, or edema Neur: Awake and alert Psych: Normal Mood and Affect Result Diagram: 04/10/17199904/10/171999 Results 24 hrs Laboratory Tests Test 04/10/17 19:25 04/10/17 20:00 04/10/17 21:29 Thyroid Stimulating Hormone (TSH) 4.230MIU/L White Blood Count 4.810^3/ul Red Blood Count 4.2910^6/ul Hemoglobin 13.6g/dl Hematocrit 39.6% Mean Corpuscular Volume 92.3fl Mean Corpuscular Hemoglobin 31.7pg Mean Corpuscular Hemoglobin Concent 34.3g/dl Red Cell Distribution Width 14.6% Platelet Count 9410^3/UL Mean Platelet Volume 11.0fl Segmented Neutrophils % (Manual) 63% Band Neutrophils % (Manual) 1% Lymphocytes % (Manual) 21% Monocytes % (Manual) 13% Eosinophils % (Manual) 1% Basophils % (Manual) 1% Nucleated Red Blood Cells % 0.0/100WBC Neutrophils # (Manual) 3.010^3/ul Band Neutrophils # 0.010^3/ul Absolute Lymphocytes (Manual) 1.010^3/ul Absolute Monocytes (Manual) 0.610^3/ul Basophils # (Manual) 0.010^3/ul Platelet Estimate NORMAL Anisocytosis 1+ Macrocytosis 1+ Sodium Level 137mmol/L Potassium Level 3.4mmol/L Chloride Level 101mmol/L Carbon Dioxide Level 18mmol/L Anion Gap 21 Blood Urea Nitrogen 6mg/dl Creatinine 0.75mg/dl Glucose Level 253mg/dl Calcium Level 8.9mg/dl Total Bilirubin 0.5mg/dl Direct Bilirubin 0.00mg/dl Indirect Bilirubin 0.5mg/dl Aspartate Amino Transf (AST/SGOT) 106IU/L Alanine Aminotransferase (ALT/SGPT) 78IU/L Alkaline Phosphatase 77IU/L Total Protein 7.8g/dl Albumin 4.3g/dl Globulin 3.50g/dl Albumin/Globulin Ratio 1.22 Salicylates Level < 1.0mg/dl Acetaminophen Level < 10.0ug/ml Ethyl Alcohol Level 58.0mg/dl Troponin I < 0.012ng/ml Current Medications Medications (Trade) Dose Ordered Sig/Leeanne Route PRN Reason Start Time Stop Time Status Last Admin Dose Admin Olanzapine (Zyprexa) 10 mg ONCE ONCE PO 04/10/17 20:30 04/10/17 20:31 DC 04/10/17 20:40 Acetaminophen 650 mg 650 mg ONCE ONCE PO 04/10/17 21:00 04/10/17 21:01 DC 04/10/17 21:40 Multivitamins 10 ml/Thiamine HCl 100 mg/Folic Acid 1 mg/Magnesium Sulfate 2 gm/ Sodium Chloride 1,015.2 ml @ 500 mls/ hr Q2H2M ONCE IV 04/10/17 21:30 04/10/17 21:44 DC Sodium Chloride 1,000 ml @ 1,000 mls/hr Q1H ONCE IV 04/10/17 21:30 04/10/17 22:29 DC 04/10/17 21:40 Multivitamins/ Thiamine HCl/ Magnesium Sulfate/ Sodium Chloride (Mvi Adult/ Vitamin B1/ Magnesium Sulfate/ NS) 1,015 ml @ 500 mls/hr Q2H2M ONCE IV 04/10/17 22:00 04/11/17 00:01 DC 04/10/17 22:38 Ondansetron HCl (Zofran Inj) 4 mg BRIDGE ORDER PRN IV NAUSEA AND/OR VOMITING 04/11/17 00:30 04/12/17 00:29 Acetaminophen (Tylenol Tab) 650 mg ER BRIDGE PRN PO MILD PAIN/FEVER 04/11/17 00:30 04/12/17 00:29 04/11/17 01:01 Procedures/MDM 52-year-old male with new neurological symptoms patient is for organic brain disease, possibly secondary to withdrawal of heavy alcohol use possible vitamin deficiency. Is given a liter of normal saline and CT was obtained which shows no tumor or any other acute process. Cardiac workup also shows no acute coronary syndrome. No significant electrolyte abnormalities identified. Hyperglycemia treated with normal saline. 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 To have pancytopenia and mild elevation of liver enzymes consistent with alcoholic disease. Spoke to be admitted for neurological workup possibly MRI. Currently is in stable condition. Dr. Cline is admitting. EKG interpretation: Normal sinus rhythm rate of 90, left axis deviation, no ST or T-wave changes during for acute ischemia, QT of 472. CT head interpretation: I see no acute process, see no hemorrhage, no mass effect, no midline shift, no skull fracture. No abnormal mass identified either. Departure Diagnosis: Primary Impression: Visual hallucinations Additional Impressions: Unsteady gait Headache Hyperglycemia due to type 2 diabetes mellitus Thrombocytopenia Condition: JYOTI Culp DO Apr 10, 2017 21:19
[2017-04-10] MEDS ORDERED: SOD CHLORIDE 0.9% 1,000 ML IV ONE (21:30)
[2017-04-10] MEDS ORDERED: MULTIVITAMINS 10 ML, THIAMINE 100 MG, FOLIC ACID 1 MG, MAGNESIUM SULFATE 2 GM in SOD CH... IV ONE (21:30)
[2017-04-10] MEDS ORDERED: MULTIVITAMINS 10 ML, THIAMINE 100 MG, MAGNESIUM SULFATE 2 GM in SOD CHLORIDE 0.9% 1,000 ML IV ONE (22:00)
[2017-04-10 22:17] LABS: ANISOCYTOSIS 1+ (0-0); BASOPHILS % (M) 1 % (0-2); EOSINOPHILS % (M) 1 % (0-7); MONOCYTES % (M) 13 % (0-11); PLATELET ESTIMATE NORMAL
[2017-04-11] MEDS ORDERED: ONDANSETRON 4 MG INJ IV PRN (00:30)
[2017-04-11] MEDS ORDERED: ACETAMINOPHEN 325 MG TAB PO PRN (00:30)
[2017-04-11] MEDS ORDERED: QUETIAPINE 25 MG TAB PO ONE (03:00)
[2017-04-11] MEDS ORDERED: LORAZEPAM 2 MG INJ IV PRN (03:00)
[2017-04-11] MEDS: INSULIN ASPART [NOVOLOG] 3 ML PEN SC SCH ×2 (03:00→08:52)
[2017-04-11] MEDS ORDERED: LORAZEPAM 2 MG INJ IV ONE ×2 (03:00→04:30)
[2017-04-11] MEDS ORDERED: DEXTROSE 5%-0.45% NACL 1,000 ML IV SCH (03:00)
[2017-04-11] MEDS ORDERED: GLUCAGON 1 MG INJ IM PRN (03:30)
[2017-04-11] MEDS ORDERED: GLUCOSE GEL 15 GRAM TUBE BUCCAL PRN (03:30)
[2017-04-11] MEDS ORDERED: traMADol 50 MG TAB PO PRN (03:30)
[2017-04-11] MEDS ORDERED: DEXTROSE 50% 50 ML SYRINGE IV PRN ×2 (03:30)
[2017-04-11] MEDS ORDERED: GLUCOSE GEL 15 GRAM TUBE PO PRN ×2 (03:30)
[2017-04-11] MEDS ORDERED: SUMATRIPTAN 6 MG/0.5 ML INJ SC ONE (03:30)
[2017-04-11] MEDS ORDERED: HALOPERIDOL 5 MG INJ IM ONE (04:30)
[2017-04-11] MEDS ORDERED: DIPHENHYDRAMINE 50 MG INJ IV ONE (04:30)
[2017-04-11] MEDS ORDERED: LORAZEPAM 1 MG TAB PO PRN (05:00)
[2017-04-11 06:40] LABS: ABNORMAL IP MESSAGE 1; POSITIVE DIFF @See below
[2017-04-11 06:52] LABS: HEMATOCRIT 39.1 % (42.0-52.0); HEMOGLOBIN 13.2 g/dl (14.0-18.0); MEAN CORPUSCULAR HEMOGLOBIN 31.5 pg (29.0-33.0); MEAN CORPUSCULAR HGB CONC 33.8 g/dl (32.0-37.0); MEAN CORPUSCULAR VOLUME 93.3 fl (82.0-101.0); MEAN PLATELET VOLUME 11.7 fl (7.4-10.4); PLATELET COUNT 92 10^3/UL (140-415); RED BLOOD COUNT 4.19 10^6/ul (4.70-6.10); RED CELL DISTRIBUTION WIDTH 15.1 % (11.5-14.5); WHITE BLOOD COUNT 4.2 10^3/ul (4.8-10.8)
[2017-04-11 07:26] LABS: ALBUMIN 3.9 g/dl (3.3-4.9); ALBUMIN/GLOBULIN RATIO 1.05; BILIRUBIN,INDIRECT 0.6 mg/dl (0-1.1); BILIRUBIN,TOTAL 0.6 mg/dl (0.2-1.3); CALCIUM 8.5 mg/dl (8.4-10.2); CREATININE 0.71 mg/dl (0.61-1.24); MAGNESIUM 1.9 mg/dl (1.7-2.5); PHOSPHORUS 3.3 mg/dl (2.5-4.9); POTASSIUM 3.5 mmol/L (3.5-5.1); TOTAL PROTEIN 7.6 g/dl (6.1-8.1)
[2017-04-11 07:42] LABS: THYROID STIMULATING HORMONE 7.22 MIU/L (0.465-4.680)
[2017-04-11 08:00] VITALS: BP 138/97; PULSE 103; RESP 18
--- NOTE | 2017-04-11 08:50 | HP ---
Date/Time of Note Date/Time of Note DATE: 04/11/17 TIME: 08:39 Assessment/Plan VTE Prophylaxis VTE Prophylaxis Intervention: SCD's Assessment/Plan Assessment/Plan 1. Auditory and visual hallucinations, most likely alcohol induced -Patient was evaluated by telemetry psychiatrist, who also felt this was alcohol related. -MVI, folate, thiamine was as needed Ativan for withdrawal symptoms and agitation -He will have another telemetry psych evaluation 2. Insulin-dependent diabetes, with hyperglycemia -Continue insulin with adjustment as needed -Note that patient had been refusing fingerstick checks 3. Elevated transaminases, likely related to alcohol. -Recent abdominal imaging showed hepatic steatosis but no cirrhosis -Monitor closely 4. Metabolic acidosis HPI/ROS Admit Date/Time Admit Date/Time Apr 11, 2017 at 00:31 Hx of Present Illness This is a 52-year-old male with a history of hypertension, insulin-dependent diabetes who presented to the ER for a auditory and visual hallucinations. He said he has been seeing people, namely a black blayne chasing him, which has been causing anxiety. I spoke to him through air brush operator. When I asked if the people that he sees or voices he hears tell him to harm himself and others, he initially said" why do you want to know?", But later he said no. He also denied suicidal or homicidal ideation. Patient however appears weak. He was evaluated by tele-psychiatrist, who felt this was secondary to alcohol. On my questioning, patient stated the last time he had any alcoholic drink was a long time ago but he has a positive blood alcohol test. He was admitted here about 4 months ago for pancreatitis, which was thought to be alcohol induced. Currently he has a one-to-one sitter. PMH/Family/Social Social History Smoking Status: Current every day smoker Exam/Review of Systems Vital Signs Vitals Vital Signs Date Time Temp Pulse Resp B/P Pulse Ox O2 Delivery O2 Flow Rate FiO2 04/11/17 01:24 69 20 154/104 99 Room Air 04/10/17 18:44 97.5 Intake and Output 04/10/17 04/10/17 04/11/17 15:00 23:00 07:00 Intake Total 200 ml Balance 200 ml Exam Constitutional: other (Appears 2 week. Answering questions slowly. At times appears suspicious) Head: atraumatic, normocephalic Eyes: EOMI, PERRL Respiratory: clear to auscultation, normal air movement Cardiovascular: nl pulses, regular rate and rhythm Gastrointestinal: non-tender, soft Extremities: normal pulses Neurological: confused Labs Result Diagram: 04/11/1744804/11/17448 Medications Medications Current Medications Quetiapine Fumarate (Seroquel) 25 mg HS PO ; Start 04/11/17 at 21:00 Lorazepam 1 mg 1 mg Q12 PRN IV ANXIETY; Start 04/11/17 at 03:00 Dextrose/Sodium Chloride (D5-1/2ns) 1,000 ml @ 100 mls/hr Q10H IV Last administered on 04/11/17 03:11; Admin Dose 100 MLS/HR; Start 04/11/17 at 03: 00 Insulin Aspart (Novolog Insulin Pen) NOVOLOG *MILD* ALGORI... Q4 SC ; Start 05/16 at 03:00 Miscellaneous Information 1 ea NOTE XX ; Start 04/11/17 at 03:30 Glucose (Glutose) 15 gm Q15M PRN PO DECREASED GLUCOSE; Start 04/11/17 at 03:30 Glucose (Glutose) 22.5 gm Q15M PRN PO DECREASED GLUCOSE; Start 04/11/17 at 03: 30 Dextrose (D50w Syringe) 25 ml Q15M PRN IV DECREASED GLUCOSE; Start 04/11/17 at 03:30 Dextrose (D50w Syringe) 50 ml Q15M PRN IV DECREASED GLUCOSE; Start 04/11/17 at 03:30 Glucagon (Glucagen) 1 mg Q15M PRN IM DECREASED GLUCOSE; Start 04/11/17 at 03: 30 Glucose (Glutose) 15 gm Q15M PRN BUCCAL DECREASED GLUCOSE; Start 04/11/17 at 03:30 Tramadol HCl (Ultram) 50 mg Q6H PRN PO PAIN Last administered on 04/11/17 08: 27; Admin Dose 50 MG; Start 04/11/17 at 03:30 Chlordiazepoxide (Librium) 50 mg QID PO Last administered on 04/11/17 08:28; Admin Dose 50 MG; Start 04/11/17 at 09:00 Multivitamins Therapeutic (Theragran) 1 tab DAILY PO Last administered on 04/11 08:27; Admin Dose 1 TAB; Start 04/11/17 at 09:00 Thiamine HCl (Vitamin B1) 100 mg DAILY PO Last administered on 04/11/17 08:27 ; Admin Dose 100 MG; Start 04/11/17 at 09:00 Folic Acid (Folic Acid) 1 mg DAILY PO Last administered on 04/11/17 08:27; Admin Dose 1 MG; Start 04/11/17 at 09:00 Lorazepam (Ativan) 2 mg Q1H PRN PO withdrawal; Start 04/11/17 at 05:00 Insulin Glargine (Lantus) 25 unit DAILY@20 SC ; Start 04/11/17 at 20:00 Lisinopril (Zestril) 10 mg DAILY PO Last administered on 04/11/17 08:28; Admin Dose 10 MG; Start 04/11/17 at 09:00 Miscellaneous Information Patients own medicat... BID@10,16 XX ; Start at 10:00 PRAVEENA LINDSEY MD Apr 11, 2017 08:49
[2017-04-11] MEDS ORDERED: CHLORDIAZEPOXIDE 25 MG CAP PO SCH (09:00)
[2017-04-11] MEDS ORDERED: THIAMINE 100 MG TAB PO SCH (09:00)
[2017-04-11] MEDS ORDERED: FOLIC ACID 1 MG TAB PO SCH (09:00)
[2017-04-11] MEDS ORDERED: MULTIVITAMINS THERAPEUTIC TAB PO SCH (09:00)
[2017-04-11] MEDS ORDERED: LISINOPRIL 10 MG TAB PO SCH (09:00)
[2017-04-11 10:20] LABS: BASOPHILS % (M) 1 % (0-2); EOSINOPHILS % (M) 5 % (0-7); GIANT THROMBO% (M) 1 % (0-0); MONOCYTES % (M) 9 % (0-11); PLATELET ESTIMATE DECREASED; POLYCHROMASIA 3+ (0-0)
[2017-04-11] MEDS ORDERED: INSULIN GLARGINE [LANtus] 3 ML PEN SC SCH (20:00)
[2017-04-11] MEDS ORDERED: QUETIAPINE 25 MG TAB PO SCH (21:00)
== END 2017-04-11 11:12 | disposition left against medical advice (07) | DRG 894 ==
LOC: E/R 18:32 → UNDOADMIN 04-11 00:31 → PP2 04-11 00:31
PROVIDERS: ADMIT Internal Medicine; ATTEND Internal Medicine
DX: F10.251 Alcohol dependence with alcohol-induced psychotic disorder with hallucinations (principal); E87.2 Acidosis; D69.6 Thrombocytopenia, unspecified; F10.239 Alcohol dependence with withdrawal, unspecified; E11.65 Type 2 diabetes mellitus with hyperglycemia; K76.0 Fatty (change of) liver, not elsewhere classified; Z79.4 Long term (current) use of insulin; Y90.2 Blood alcohol level of 40-59 mg/100 ml; F17.210 Nicotine dependence, cigarettes, uncomplicated; I10 Essential (primary) hypertension; R44.1 Visual hallucinations
CPT/HCPCS: 36415; 70450; 80053; 80306; 82962; 83735; 84100; 84425; 84443; 84484; 85025; 93005; 96374; J1815; J2060; J3030; J3411; J3475; J7030; J7042

== ENCOUNTER 2017-10-28 23:01 | Inpatient (IN) | END 2017-11-04 16:30 | disposition home health service (06) | DRG 368 ==

== ENCOUNTER 2017-11-24 11:10 | Emergency (ER) | END 2017-11-24 13:36 | disposition home or self-care (01) ==

== ENCOUNTER 2018-03-11 12:02 | Emergency (ER) | END 2018-03-11 16:48 | disposition home or self-care (01) ==

== ENCOUNTER 2018-11-15 21:01 | Inpatient (IN) | payer OTHER ==
[~2018-11-15] VITALS: Ht 180.3 cm; Wt 110.5 kg
[~2018-11-15 21:01] MED LIST changes: -ACET325T40 PO; -BLOO-53 MC; +HYDR-3980 PO; +INSU100I33 SC; -LANC1COM MC; -LANT3I SC; -LIDO76.5 TP; -LISI10TA2 PO; +METF100010 PO; -NEUTPHOS PO; +ONDA4TAB14 PO
[2018-11-15] MEDS ORDERED: ONDANSETRON 4 MG INJ IV STA (22:29)
[2018-11-15] MEDS ORDERED: SOD CHLORIDE 0.9% 1,000 ML IV STA (22:29)
[2018-11-15] MEDS ORDERED: morphine 4 MG/ML VIAL IV STA (22:29)
[2018-11-15] MEDS ORDERED: ASPI-676 PO (23:11)
[2018-11-15] MEDS ORDERED: ATOR-2 PO (23:11)
[2018-11-15] MEDS ORDERED: GLIM4TAB PO (23:11)
[2018-11-15] MEDS ORDERED: IOHEXOL 100 ML ONE (23:24)
[2018-11-15] MEDS ORDERED: SOD CHLORIDE 0.9% 100 ML ONE (23:24)
[2018-11-15] MEDS ORDERED: LORAZEPAM 2 MG INJ IV ONE (23:30)
[2018-11-16] MEDS ORDERED: morphine 4 MG/ML VIAL IV STA (01:46)
[2018-11-16] MEDS ORDERED: ONDANSETRON 4 MG INJ IV STA (01:46)
--- NOTE | 2018-11-16 05:39 | ERD ---
ER Documentation Chief Complaint Chief Complaint SEVERE PRITCHETT WITH MULTIPLE SYNCOPAL EVENTS TODAY, ACCUCHK 204 HPI Is a 53-year-old male has had multiple syncopal episodes today. Said he had severe headache preceding them. Denies any nausea vomiting fevers or chills. Denies any chest pain. Denies any palpitations. He says is been under a lot of stress today. Denies any other current issues. No focal neurological complaints. ROS All systems reviewed and are negative except as per history of present illness. Medications Home Meds Reported Medications Atorvastatin* (Atorvastatin*) 80 Mg Tablet, 80 MG PO QHS for 90 Days, #90 11/15/18 Glimepiride* (Glimepiride*) 4 Mg Tablet, 4 MG PO BID for 90 Days, #180 11/15/18 Aspirin (Yariel Child) 81 Mg Chew, 81 MG PO DAILY for 30 Days, #30 11/15/18 Insulin Glargine,Hum.rec.anlog (Basaglar Kwikpen U-100) 100 Unit/1 Ml Insuln.pen, 5 UNIT SC AC B, EA 03/11/18 Metformin Hcl* (Metformin Hcl*) 1,000 Mg Tablet, 1000 MG PO WITH BREAKFAST DINNE, #60 TAB 10/28/17 Discontinued Scripts Ondansetron (Ondansetron Odt) 4 Mg Tab.rapdis, 4 MG PO Q6H PRN for NAUSEA AND/OR VOMITING, #10 TAB Prov:KALIN HILTON MD 03/11/18 Hydrocodone/Acetaminophen ([place] 10-325 Tablet) 1 Each Tablet, 1 TAB PO Q6H PRN for PAIN, #7 TAB Prov:KALIN HILTON MD 03/11/18 Allergies Allergies: Coded Allergies: No Known Allergy (Unverified , 11/15/18) PMhx/Soc History of Surgery: Yes (STENT X 3, TESTICLE) Anesthesia Reaction: No Hx Neurological Disorder: No Hx Respiratory Disorders: Yes (COPD) Hx Cardiac Disorders: Yes (CAD 3 STENT,high cholesterol) Hx Psychiatric Problems: No Hx Miscellaneous Medical Probl: Yes (pancreatitis) Hx Alcohol Use: Yes (socially) Hx Substance Use: No Hx Tobacco Use: No Smoking Status: Never smoker Physical Exam Vitals Vital Signs Date Temp Pulse Resp B/P (MAP) Pulse Ox O2 O2 Flow FiO2 Time Delivery Rate 11/16/18 101 15 145/96 95 Room Air 05:00 (112) 11/16/18 101 20 149/96 95 Room Air 04:30 (113) 11/16/18 99 14 138/93 95 Room Air 04:00 (108) 11/16/18 105 13 134/97 95 Room Air 03:30 (109) 11/16/18 105 13 133/87 94 Room Air 03:00 (102) 11/16/18 108 13 148/97 93 Room Air 02:30 (114) 11/16/18 108 15 151/98 97 Room Air 02:00 (115) 11/16/18 103 13 141/95 94 Room Air 01:30 (110) 11/16/18 96 14 135/91 93 Room Air 01:00 (106) 11/16/18 97 14 129/91 91 Room Air 00:30 (104) 11/16/18 103 20 141/93 96 Room Air 00:00 (109) 11/15/18 106 16 156/10 98 Room Air 23:30 (58) 11/15/18 100 15 142/93 95 Room Air 23:00 (109) 11/15/18 120 16 152/101 97 Room Air 22:30 (118) 11/15/18 127 22 151/108 99 Room Air 22:00 (122) 11/15/18 98.6 117 20 150/93 99 21:09 (112) Physical Exam Const: No acute distress Head: Atraumatic Eyes: Normal Conjunctiva ENT: Normal External Ears, Nose and Mouth. Neck: Full range of motion. No meningismus. Resp: Clear to auscultation bilaterally Cardio: Regular rate and rhythm, no murmurs Abd: Soft, non tender, non distended. Normal bowel sounds Skin: No petechiae or rashes Back: No midline or flank tenderness Ext: No cyanosis, or edema Neur: Awake and alert Psych: Normal Mood and Affect Result Diagram: 11/15/18221111/15/182211 Results 24 hrs Laboratory Tests Test 11/15/18 21:08 11/15/18 22:12 Bedside Glucose 204 mg/dL White Blood Count 6.6 10^3/ul Red Blood Count 5.02 10^6/ul Hemoglobin 16.0 g/dl Hematocrit 46.7 % Mean Corpuscular Volume 93.0 fl Mean Corpuscular Hemoglobin 31.9 pg Mean Corpuscular Hemoglobin Concent 34.3 g/dl Red Cell Distribution Width 13.2 % Platelet Count 96 10^3/UL Mean Platelet Volume 11.0 fl Immature Granulocytes % 0.300 % Neutrophils % 75.6 % Segmented Neutrophils % (Manual) 74 % Band Neutrophils % (Manual) 1 % Lymphocytes % 12.8 % Lymphocytes % (Manual) 14 % Monocytes % 9.9 % Monocytes % (Manual) 8 % Eosinophils % 0.8 % Eosinophils % (Manual) 3 % Basophils % 0.6 % Nucleated Red Blood Cells % 7 % Immature Granulocytes # 0.020 10^3/ul Neutrophils # 5.0 10^3/ul Neutrophils # (Manual) 4.9 10^3/ul Band Neutrophils # 0.0 10^3/ul Lymphocytes (Manual) 0.9 10^3/ul Lymphocytes # 0.8 10^3/ul Monocytes # 0.7 10^3/ul Monocytes # (Manual) 0.5 10^3/ul Eosinophils # 0.1 10^3/ul Basophils # 0.0 10^3/ul Nucleated Red Blood Cells # 0.0 10^3/ul Platelet Estimate DECREASED Anisocytosis 2+ Macrocytosis 2+ Prothrombin Time 13.1 Sec Prothrombin Time Ratio 1.0 INR International Normalized Ratio 0.98 Activated Partial Thromboplast Time 28.4 Sec Sodium Level 139 mmol/L Potassium Level 3.6 mmol/L Chloride Level 95 mmol/L Carbon Dioxide Level 25 mmol/L Anion Gap 19 Blood Urea Nitrogen 16 mg/dl Creatinine 1.06 mg/dl Est Glomerular Filtrat Rate mL/min > 60 mL/min Glucose Level 214 mg/dl Calcium Level 9.7 mg/dl Troponin I < 0.012 ng/ml Current Medications Medications Dose Sig/Leeanne Start Time Status Last (Trade) Ordered Route PRN Stop Time Admin Dose Reason Admin Sodium 1,000 ml @ Q1H STAT 11/15/18 DC 11/15/18 Chloride 1,000 mls/hr IV 22:29 22:41 11/15/18 23:28 Ondansetron 4 mg ONCE STAT 11/15/18 DC 11/15/18 HCl (Zofran IV 22:29 22:42 Inj) 11/15/18 22:30 Morphine 4 mg ONCE STAT 11/15/18 DC 11/15/18 Sulfate IV 22:29 22:42 (morphine) 11/15/18 22:30 Lorazepam 1 mg ONCE ONCE 11/15/18 DC 11/15/18 (Ativan) IV 23:30 23:53 11/15/18 23:31 IV Flush 10 ml STK-MED 11/15/18 DC 11/15/18 (NS 10 ml) ONCE .ROUTE 23:24 23:24 11/15/18 23:25 Sodium 100 ml @ ud STK-MED 11/15/18 DC 11/15/18 Chloride ONCE .ROUTE 23:24 23:24 11/15/18 23:25 Iohexol 100 ml @ ud STK-MED 11/15/18 DC 11/15/18 ONCE .ROUTE 23:24 23:24 11/15/18 23:25 Morphine 4 mg ONCE STAT 11/16/18 DC 11/16/18 Sulfate IV 01:46 01:58 (morphine) 11/16/18 01:47 Ondansetron 4 mg ONCE STAT 11/16/18 DC 11/16/18 HCl (Zofran IV 01:46 01:58 Inj) 11/16/18 01:47 Procedures/MDM EKG: Rate/Rhythm: [Normal Sinus Rhythm] QRS, ST, T-waves: [No changes consistent w/ acute ischemia] Impression: [No evidence of ischemia or arrhythmia] Chest X-ray 1V Interpreted by me: Soft Tissue: No acute abnormalities Bones: No acute abnormalities Mediastinum/Cardiac Silhouette/Lungs: [No acute abnormalities] Medical decision makin-year-old male with what looks to be acute syncope. Patient's syncopal symptoms are unstable at this time and require inpatient workup. No evidence of PE or dissection at this time but occult ischemia or fatal dysrhythmia cannot be ruled out. Departure Diagnosis: Primary Impression: Syncope Syncope type: unspecified Qualified Codes: R55 - Syncope and collapse Condition: PRAVEENA Marvin Nov 16, 2018 05:39
[2018-11-16] MEDS ORDERED: ONDANSETRON 4 MG INJ IV PRN (06:00)
[2018-11-16] MEDS ORDERED: ACETAMINOPHEN 325 MG TAB PO PRN (06:00)
--- NOTE | 2018-11-16 06:31 | HP ---
Date/Time of Note Date/Time of Note DATE: 11/16/18 TIME: 06:25 Assessment/Plan VTE Prophylaxis SCD applied (from Nsg): Yes Pharmacological prophylaxis: NA/contraindicated Pharm contraindication: low risk/ambulating Lines/Catheters IV Catheter Type (from Nrsg): Saline Lock Assessment/Plan Hospital Course This is a 53-year-old male being admitted to the telemetry floor for observation for: #1 left-sided weakness with possible syncope: Concern for possible TIA versus CVA versus vasovagal event versus orthostatic versus alcohol. Patient had CT imaging studies performed in the emergency department that did not show any acute on normalities. Will proceed with MRI of the brain. Will check an echocardiogram. Orthostatic vitals. Will consult by neurology. Continue aspirin #2 headaches: Again we will check a MRI of the brain. Neurology #3 Abdominal pain: Patient does have a history of pancreatitis We will check a lipase level., CT abdomen pelvis without contrast. Patient reports that he drank alcohol approximately 1 week ago. #4 history of heavy alcohol use: He does appear disheveled., Will monitor for any signs of withdrawal. PRN Ativan. Will check an ethanol level. #5 diabetes mellitus: We will check hemoglobin A 1C, insulin sliding scale, hold home oral medications, home Lantus #6 hypertension: Permissive hypertension for 24 hours #7 lumbar spinal pain: We will check CT imaging studies performed to further evaluate., Pain management #8 DVT GI prophylaxis: SCDs, GI prophylaxis indicated further treatment strategy will be implemented as per the clinical course Further treatment strategy will be implemented as per the clinical course. Result Diagram: 11/15/18 2212 11/15/18 2212 Results 24hrs Laboratory Tests Test 11/15/18 21:08 11/15/18 22:12 Bedside Glucose 204 White Blood Count 6.6 Red Blood Count 5.02 Hemoglobin 16.0 Hematocrit 46.7 Mean Corpuscular Volume 93.0 Mean Corpuscular Hemoglobin 31.9 Mean Corpuscular Hemoglobin Concent 34.3 Red Cell Distribution Width 13.2 Platelet Count 96 L Mean Platelet Volume 11.0 H Immature Granulocytes % 0.300 Neutrophils % 75.6 Segmented Neutrophils % (Manual) 74 Band Neutrophils % (Manual) 1 Lymphocytes % 12.8 L Lymphocytes % (Manual) 14 L Monocytes % 9.9 Monocytes % (Manual) 8 Eosinophils % 0.8 Eosinophils % (Manual) 3 Basophils % 0.6 Nucleated Red Blood Cells % 7 H Immature Granulocytes # 0.020 Neutrophils # 5.0 Neutrophils # (Manual) 4.9 Band Neutrophils # 0.0 Lymphocytes (Manual) 0.9 Lymphocytes # 0.8 Monocytes # 0.7 Monocytes # (Manual) 0.5 Eosinophils # 0.1 Basophils # 0.0 Nucleated Red Blood Cells # 0.0 Platelet Estimate DECREASED Anisocytosis 2+ Macrocytosis 2+ Prothrombin Time 13.1 Prothrombin Time Ratio 1.0 INR International Normalized Ratio 0.98 Activated Partial Thromboplast Time 28.4 Sodium Level 139 Potassium Level 3.6 Chloride Level 95 L Carbon Dioxide Level 25 Anion Gap 19 H Blood Urea Nitrogen 16 Creatinine 1.06 Est Glomerular Filtrat Rate mL/min > 60 Glucose Level 214 Calcium Level 9.7 Troponin I < 0.012 HPI/ROS Admit Date/Time Admit Date/Time Hx of Present Illness Chief complaint: Headache x3 days, generalized weakness left-sided facial numbness, possible syncope The following patient is a very poor historian. This is a 53-year-old male who presented to the emergency department with multiple complaints. As per the ED physician there was a reported episode of syncope. However when I speak to the patient he gives me a different story. He states that he has a headache for 3 days. He also reports that he has had left- sided numbness of his face and his arm. He also reported generalized weakness. Patient also reports lower back pain. When asked about drinking he states that the last drink he had was 1 week ago. He denies any chest pain or shortness of breath or nausea or vomiting. Upon review of the patient's medical records he does have a history of alcohol abuse. Allergies: NKDA Medications: See Jul Const: As per HPI Eyes : No pain discharge or redness or change in visual acuity ENT: No pain, sore throat, congestion, congestion, dysphagia or discharge Respiratory: No shortness of breath, cough, sputum, wheezing, or pleuritic pain Cardiovascular: No chest pain, palpitation, PND, or edema GI : no change in appetite, abdominal pain, nausea, vomiting, diarrhea, constipation, or change in the color his stool Genitourinary: No dysuria, hematuria, flank pain , discharge or CVA tenderness Musculoskeletal: As per HPI Skin: No rash, bruising or hives Neuro: As per HPI Endocrine: No polyuria, polydipsia, temperature intolerance Psych: No hallucination, depression, anxiety or suicidal ideation PMH/Family/Social Past Medical History Pancreatitis, diabetes mellitus, hypertension Medications Current Medications Ondansetron HCl (Zofran Inj) 4 mg ER BRIDGE PRN IV NAUSEA/VOMITING; Start 11/16/18 at 06:00; Stop 11/17/18 at 05:59 Acetaminophen (Tylenol Tab) 650 mg ER BRIDGE PRN PO .MILD PAIN 1-3 OR TEMP; Start 11/16/18 at 06:00; Stop 11/17/18 at 05:59 Lorazepam (Ativan) 2 mg Q2 PRN IV CONTROL WITHDRAWAL SYMPTOMS; Start 11/16/18 at 06:30; Status UNV Coded Allergies: No Known Allergy (Unverified , 11/15/18) Past Surgical History Testicular surgery Family History Significant Family History: cancer Social History Alcohol Use: heavy Smoking Status: Current every day smoker Drug Use: none Exam/Review of Systems Vital Signs Vitals Vital Signs Date Temp Pulse Resp B/P (MAP) Pulse Ox O2 O2 Flow FiO2 Time Delivery Rate 11/16/18 110 18 144/113 96 Room Air 05:49 (123) 11/15/18 98.6 21:09 Intake and Output 11/15/18 11/15/18 11/16/18 1515:00 23:00 07:00 IntakeIntake Total 1000 ml BalanceBalance 1000 ml Exam Exam General: Patient is currently lying in bed in no acute distress, slightly disheveled appearing HEENT: Atraumatic, normocephalic. The pupils are equal, round and reactive. Extraocular motor are intact Neck: Supple with full range of motion. No rigidity or meningismus Chest: Nontender Lungs: Clear to auscultation bilaterally no crackles rales or wheezing Heart: Sinus tachycardia Abdomen: Soft, tenderness palpation of the epigastric area, normal bowel sounds, no guarding or wheezing. Extremities: Normal to inspection, no edema no cyanosis Musculoskeletal: Tenderness palpation along the lumbar and thoracic spine. Neurologic: Normal mental status, speech normal, cranial nerves II through XII are intact, motor and sensory are intact, no focal weakness strength 5 out of 5 in bilateral upper and lower extremity Psych: Does not appear to be responding to any external stimuli, does not appear to be anxious. TANYA BUTT Nov 16, 2018 06:31
[2018-11-16] MEDS ORDERED: HYDROmorphONE 1 MG/ML SYG IV ONE (07:00)
[2018-11-16] MEDS ORDERED: NACL 0.9% 3 ML SYG IV SCH (09:00)
[2018-11-16] MEDS ORDERED: DOCUSATE SODIUM 100 MG CAP PO PRN (09:00)
[2018-11-16] MEDS ORDERED: BISACODYL (EC) 5 MG TAB PO PRN (09:00)
[2018-11-16] MEDS ORDERED: LABETALOL HCL 20MG INJ IV PRN (09:00)
[2018-11-16] MEDS: ASPIRIN 81 MG TAB PO SCH (10:08)
[2018-11-16] MEDS: INSULIN GLARGINE [LANtus] 3 ML PEN SC SCH (10:10)
[2018-11-16] MEDS: LORAZEPAM 2 MG INJ IV PRN ×2 (10:25→14:15)
[2018-11-16] MEDS ORDERED: GLUCAGON 1 MG INJ IM PRN (10:30)
[2018-11-16] MEDS ORDERED: GLUCOSE GEL 15 GRAM TUBE BUCCAL PRN (10:30)
[2018-11-16] MEDS ORDERED: GLUCOSE GEL 15 GRAM TUBE PO PRN ×2 (10:30)
[2018-11-16] MEDS ORDERED: DEXTROSE 50% 50 ML SYRINGE IV PRN ×2 (10:30)
--- NOTE | 2018-11-16 13:29 | CONSI ---
Assessment/Plan Assessment/Plan Assessment/Plan (Recall) 53 M who presents for evaluation of left face and arm numbness in the context of headache....and other complaints... The clinical picture was initially concerning for stroke; however, MRI brain is reassuringly negative for acute intracranial pathology.. Complicated migraine is possible... Head and Neck CTA are normal. P: Continued medical management and other supportive care per primary PT/OT as necessary Will follow Consultation Date/Type/Reason Admit Date/Time Type of Consult Neurology Reason for Consultation left face and arm numbness Requesting Provider: TANYA BUTT Date/Time of Note DATE: 11/16/18 TIME: 13:26 Hx of Present Illness Chief complaint: Headache x3 days, generalized weakness left-sided facial numbness, possible syncope The following patient is a very poor historian. This is a 53-year-old male who presented to the emergency department with multiple complaints. As per the ED physician there was a reported episode of syncope. However when I speak to the patient he gives me a different story. He states that he has a headache for 3 days. He also reports that he has had left- sided numbness of his face and his arm. He also reported generalized weakness. Patient also reports lower back pain. When asked about drinking he states that the last drink he had was 1 week ago. He denies any chest pain or shortness of breath or nausea or vomiting. Upon review of the patient's medical records he does have a history of alcohol abuse. 12 PT ros o/w neg Objective Exam Vitals Vital Signs Date Temp Pulse Resp B/P (MAP) Pulse Ox O2 O2 Flow FiO2 Time Delivery Rate 11/16/18 106 18 135/88 94 Room Air 10:00 (104) 11/15/18 98.6 21:09 Intake and Output 11/15/18 11/15/18 11/16/18 1515:00 23:00 07:00 IntakeIntake Total 1000 ml BalanceBalance 1000 ml Exam PE: Gen Appearance: No Apparent Distress HEENT: Normocephalic Cardiovascular: Regular rate Lungs: Clear bilaterally Abdomen: Soft Extremities: Dry NE: The patient was alert and oriented. Language was normal. Fund of knowledge was normal. Pupils were equal and reactive to light. There was no afferent pupillary defect. Visual henson were normal. Funduscopic examination was limited. Extra-ocular movements were full. Ptosis was absent. There was no nystagmus. Facial sensation was normal. Face was symmetric with normal strength. Hearing was intact. Palate movements were normal. Neck strength was normal. There was normal tongue bulk and speed of movement. Tone was normal. Muscle bulk was normal. I did not see fasciculations. Arms and legs were strong. Vibration sensation was normal. Temperature and pinprick sensation was normal. Rapid alternating movements were normal. There was no dysmetria. There was no intention tremor. Gait was deferred due to bedrest. Arm and leg reflexes were symmetric. Carty's sign was absent. Plantar responses were flexor. Results Result Diagram: 11/16/18 0731 11/16/18 0731 Results 24hrs Laboratory Tests Test 11/15/18 21:08 11/15/18 22:12 11/16/18 07:31 11/16/18 10:06 Bedside Glucose 204 178 White Blood Count 6.6 5.1 # Red Blood Count 5.02 4.41 L Hemoglobin 16.0 14.3 Hematocrit 46.7 41.7 L Mean Corpuscular 93.0 94.6 Volume Mean Corpuscular 31.9 32.4 Hemoglobin Mean Corpuscular 34.3 34.3 Hemoglobin Concent Red Cell 13.2 13.3 Distribution Width Platelet Count 96 L 74 #L Mean Platelet Volume 11.0 H 10.7 H Immature 0.300 0.200 Granulocytes % Neutrophils % 75.6 65.8 Segmented 74 Neutrophils % (Manual) Band Neutrophils % 1 (Manual) Lymphocytes % 12.8 L 16.9 Lymphocytes % 14 L (Manual) Monocytes % 9.9 15.5 H Monocytes % (Manual) 8 Eosinophils % 0.8 1.0 Eosinophils % 3 (Manual) Basophils % 0.6 0.6 Nucleated Red Blood 7 H 0.0 Cells % Immature 0.020 0.010 Granulocytes # Neutrophils # 5.0 3.4 Neutrophils # 4.9 (Manual) Band Neutrophils # 0.0 Lymphocytes (Manual) 0.9 Lymphocytes # 0.8 0.9 Monocytes # 0.7 0.8 Monocytes # (Manual) 0.5 Eosinophils # 0.1 0.1 Basophils # 0.0 0.0 Nucleated Red Blood 0.0 0.0 Cells # Platelet Estimate DECREASED Anisocytosis 2+ Macrocytosis 2+ Prothrombin Time 13.1 Prothrombin Time 1.0 Ratio INR International 0.98 Normalized Ratio Activated 28.4 Partial Thromboplast Time Sodium Level 139 141 Potassium Level 3.6 3.9 Chloride Level 95 L 98 Carbon Dioxide Level 25 24 Anion Gap 19 H 19 H Blood Urea Nitrogen 16 15 Creatinine 1.06 0.81 Est Glomerular > 60 > 60 Filtrat Rate mL/min Glucose Level 214 170 Calcium Level 9.7 8.8 Troponin I < 0.012 Total Bilirubin 1.0 Direct Bilirubin 0.00 Indirect Bilirubin 1.0 Aspartate Amino 69 H Transf (AST/SGOT) Alanine 41 Aminotransferase (AL T/SGPT) Alkaline Phosphatase 63 Total Protein 7.5 Albumin 4.5 Globulin 3.00 Albumin/Globulin 1.50 Ratio Lipase 334 H Ethyl Alcohol Level < 10.0 H Past Medical History reviewed Home Meds Reported Medications Atorvastatin* (Atorvastatin*) 80 Mg Tablet, 80 MG PO QHS for 90 Days, #90 11/15/18 Glimepiride* (Glimepiride*) 4 Mg Tablet, 4 MG PO BID for 90 Days, #180 11/15/18 Aspirin (Yariel Child) 81 Mg Chew, 81 MG PO DAILY for 30 Days, #30 11/15/18 Insulin Glargine,Hum.rec.anlog (Basaglar Kwikpen U-100) 100 Unit/1 Ml Insuln.pen, 5 UNIT SC AC Arianna, EA 03/11/18 Metformin Hcl* (Metformin Hcl*) 1,000 Mg Tablet, 1000 MG PO WITH BREAKFAST DINNE, #60 TAB 10/28/17 Discontinued Scripts Ondansetron (Ondansetron Odt) 4 Mg Tab.rapdis, 4 MG PO Q6H PRN for NAUSEA AND/OR VOMITING, #10 TAB Prov:KALIN HILTON MD 03/11/18 Hydrocodone/Acetaminophen ([place] 10-325 Tablet) 1 Each Tablet, 1 TAB PO Q6H PRN for PAIN, #7 TAB Prov:KALIN HILTON MD 03/11/18 Medications Current Medications Ondansetron HCl (Zofran Inj) 4 mg ER BRIDGE PRN IV NAUSEA/VOMITING Last administered on 11/16/18at 07:10; Admin Dose 4 MG; Start 11/16/18 at 06:00; Stop 11/17/18 at 05:59 Acetaminophen (Tylenol Tab) 650 mg ER BRIDGE PRN PO .MILD PAIN 1-3 OR TEMP; Start 11/16/18 at 06:00; Stop 11/17/18 at 05:59 Lorazepam (Ativan) 2 mg Q2H PRN IV CONTROL WITHDRAWAL SYMPTOMS Last administered on 11/16/18at 10:25; Admin Dose 2 MG; Start 11/16/18 at 06:30 Lorazepam (Ativan) 1 mg Q4H PRN IV CONTROL WITHDRAWAL SYMPTOMS; Start 11/16/18 at 09:00; Status UNV IV Flush (NS 3 ml) 3 ml PER PROTOCOL IV ; Start 11/16/18 at 09:00 Ondansetron HCl (Zofran Inj) 4 mg Q6H PRN IV NAUSEA/VOMITING; Start 11/16/18 at 09:00 Acetaminophen (Tylenol Tab) 650 mg Q6H PRN PO .PAIN 1-3 OR TEMP; Start 11/16/18 at 09:00 Docusate Sodium (Colace) 100 mg Q12H PRN PO .CONSTIPATION; Start 11/16/18 at 09:00 Bisacodyl (Dulcolax) 5 mg DAILY PRN PO .CONSTIPATION; Start 11/16/18 at 09:00 Aspirin (Aspirin) 81 mg DAILY PO Last administered on 11/16/18at 10:08; Admin Dose 81 MG; Start 11/16/18 at 09:00 Atorvastatin Calcium (Lipitor) 80 mg QHS PO ; Start 11/16/18 at 21:00 Insulin Glargine (Lantus) 5 unit DAILY SC Last administered on 11/16/18at 10:10; Admin Dose 5 UNIT; Start 11/16/18 at 09:00 Labetalol HCl (Labetalol) 10 mg Q4H PRN IV blood pressure; Start 11/16/18 at 09:00 Miscellaneous Information 1 ea NOTE XX ; Start 11/16/18 at 10:30 Glucose (Glutose) 15 gm Q15M PRN PO DECREASED GLUCOSE; Start 11/16/18 at 10:30 Glucose (Glutose) 22.5 gm Q15M PRN PO DECREASED GLUCOSE; Start 11/16/18 at 10:30 Dextrose (D50w Syringe) 25 ml Q15M PRN IV DECREASED GLUCOSE; Start 11/16/18 at 10:30 Dextrose (D50w Syringe) 50 ml Q15M PRN IV DECREASED GLUCOSE; Start 11/16/18 at 10:30 Glucagon (Glucagen) 1 mg Q15M PRN IM DECREASED GLUCOSE; Start 11/16/18 at 10:30 Glucose (Glutose) 15 gm Q15M PRN BUCCAL DECREASED GLUCOSE; Start 11/16/18 at 10:30 Allergies: Coded Allergies: No Known Allergy (Unverified , 11/15/18) Social History Alcohol Use: heavy Smoking Status: Current every day smoker Drug Use: none JAYA MUÑOZ Nov 16, 2018 13:29
--- NOTE | 2018-11-16 15:59 | RADRPT ---
Echocardiogram Report Patient Name: Yolanda CARDOZAtient ID: [id number] : 1965 (53y 10m)Study Date: 11/16/2018 9:05:09 AM Gender: Toñacession #: [id number] Tech: GerardoKumar Prado JAMES Location: [facility] Ref.Physician: TANYA BUTT Height(Cm): BSA: Weight(Kg): Quality: AdequateOrder Physician: TANYA BUTT Account #: Procedures: Echocardiographic Report: Transthoracic echocardiogram with complete 2D, M-Mode, and doppler examination. Indications: Syncope, left sided numbness. Measurements: 2D/M Mode Doppler Measurement Value Normal Range Measurement Value Normal Range LVIDd 2D 5.6 [ 4.2 - 5.8 ] cm AV Peak Alli 1.4 [ 100.0 - 170.0 ] cm/sec LVIDs 2D 3.1 [ 2.5 - 4.0 ] cm AV Peak PG 8.0 [ 2.0 - 9.0 ] mmHg LVPWd 2D 1.1 [ 0.6 - 1.0 ] cm LVOT Peak Alli 1.2 [ 70.0 - 110.0 ] cm/sec IVSd 2D 1.2 [ 0.6 - 1.0 ] cm LVOT Peak PG 6.0 [ 2.0 - 6.0 ] mmHg IVS/LVPW 2D 1.1 ratio MV E Peak Alli 0.6 [ 60.0 - 130.0 ] cm/sec AoR Diam 2D 2.9 [ 2.6 - 3.4 ] cm MV A Peak Alli 1.0 [ 100.0 - 120.0 ] cm/sec LA/Ao 2D 1 ratio MV E/A 0.7 [ 0.8 - 1.5 ] ratio LA Dimen 2D 3.5 [ 3.0 - 4.0 ] cm MV Decel Time 148 [ 104 - 258 ] msec Lat E` Alli 0.1 [ 10.0 - 15.0 ] cm/sec MV E/A 0.7 [ 0.8 - 1.5 ] ratio Findings: Left Ventricle: Normal left ventricular systolic function. Normal left ventricular cavity size. Mild concentric left ventricular hypertrophy. Ejection fraction is visually estimated at 60 %. Tissue Doppler/Mitral Doppler indices are consistent with impaired relaxation (Stage I diastolic dysfunction). Right Ventricle: Normal right ventricular size. Normal right ventricular systolic function. Left Atrium: The left atrium is normal in size. Right Atrium: The right atrium is normal in size. Atrial Septum: Bubble study was performed with and with out valsalva indicating no evidence of intra atrial shunt. Mitral Valve: Normal appearance and function of the mitral valve with trace physiologic regurgitation. Aortic Valve: Normal appearance of the aortic valve. No significant aortic stenosis or insufficiency. Tricuspid Valve: Normal appearance and function of the tricuspid valve with trace physiologic regurgitation. Pulmonic Valve: Normal pulmonic valve appearance. Pericardium: Normal pericardium with no significant pericardial effusion. Aorta: Normal aortic root. IVC: Normal size and normal respiratory collapse consistent with normal right atrial pressure. Conclusions: Normal left ventricular systolic function. Normal left ventricular cavity size. Mild concentric left ventricular hypertrophy. Ejection fraction is visually estimated at 60 %. Tissue Doppler/Mitral Doppler indices are consistent with impaired relaxation (Stage I diastolic dysfunction). Normal right ventricular size. Normal right ventricular systolic function. The left atrium is normal in size. The right atrium is normal in size. No significant valvular stenosis or regurgitation seen. Normal pericardium with no significant pericardial effusion. Bubble study was performed with and with out valsalva indicating no evidence of intra atrial shunt. Electronically Signed By: Larry Soto 2018-11-16 15:58:37 PDT
--- NOTE | 2018-11-16 16:22 | PN ---
Date/Time of Note Date/Time of Note DATE: 11/16/18 TIME: 16:15 Assessment/Plan VTE Prophylaxis SCD applied (from Nsg): Yes Pharmacological prophylaxis: other Lines/Catheters IV Catheter Type (from Nrsg): Saline Lock Assessment/Plan Hospital Course S: Seen by neurology team earlier today, still with some back pain. O: VS - see below PE: General: lying in bed in no acute distress, slightly disheveled appearing HEENT: Atraumatic, normocephalic. The pupils are equal, round and reactive. Extraocular motor are intact Neck: Supple with full range of motion. No rigidity or meningismus Chest: Nontender Lungs: Clear to auscultation bilaterally no crackles rales or wheezing Heart: Sinus tachycardia Abdomen: Soft, tenderness palpation of the epigastric area, normal bowel sounds, no guarding or wheezing. Musculoskeletal: Some tenderness palpation along the lumbar and thoracic spine. Neurologic: No focal deficits CT T-spine: IMPRESSION: No acute osseous abnormality including no acute or significant compression deformity, nor listhesis. 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 A/P: 53-year-old male being admitted to the telemetry floor for observation for: #1 left-sided weakness with possible syncope: Concern for possible TIA versus CVA versus vasovagal event versus orthostatic versus alcohol. However MRI brain did not show any acute findings. Patient had CT imaging studies performed in the emergency department that did not show any acute abnormalities as well. -Follow-up results of echocardiogram, Orthostatic vitals. -rec's from neurology. - Continue aspirin #2 headaches: Slightly improved, per neurology team, complicated migraines is a possibility for diagnosis -Continue pain control medications for now, follow further recommendations from neurology #3 Abdominal pain: Patient does have a prior history of pancreatitis. Patient reports that he drank approximately 1 week ago. - f/u lipase level, final results of CT abdomen pelvis without contrast. #4 history of heavy alcohol use: Patient presented as disheveled, -Continue to monitor for any signs of withdrawal. - PRN Ativan, banana bag #5 diabetes mellitus: Sugars presently stable -Follow-up results of hemoglobin A 1C, insulin sliding scale, hold home oral medications, home Lantus #6 hypertension: Stable now, again MRI brain did not show any acute findings -Monitor, hydralazine as needed #7 lumbar spinal pain: CT T-spine results reviewed -Continue pain control medications, PT consult eval Result Diagram: 11/16/18 0731 11/16/18 0731 Results 24hrs Laboratory Tests Test 11/15/18 21:08 11/15/18 22:12 11/16/18 07:31 11/16/18 10:06 Bedside Glucose 204 178 White Blood Count 6.6 5.1 # Red Blood Count 5.02 4.41 L Hemoglobin 16.0 14.3 Hematocrit 46.7 41.7 L Mean Corpuscular 93.0 94.6 Volume Mean Corpuscular 31.9 32.4 Hemoglobin Mean Corpuscular 34.3 34.3 Hemoglobin Concent Red Cell 13.2 13.3 Distribution Width Platelet Count 96 L 74 #L Mean Platelet Volume 11.0 H 10.7 H Immature 0.300 0.200 Granulocytes % Neutrophils % 75.6 65.8 Segmented 74 Neutrophils % (Manual) Band Neutrophils % 1 (Manual) Lymphocytes % 12.8 L 16.9 Lymphocytes % 14 L (Manual) Monocytes % 9.9 15.5 H Monocytes % (Manual) 8 Eosinophils % 0.8 1.0 Eosinophils % 3 (Manual) Basophils % 0.6 0.6 Nucleated Red Blood 7 H 0.0 Cells % Immature 0.020 0.010 Granulocytes # Neutrophils # 5.0 3.4 Neutrophils # 4.9 (Manual) Band Neutrophils # 0.0 Lymphocytes (Manual) 0.9 Lymphocytes # 0.8 0.9 Monocytes # 0.7 0.8 Monocytes # (Manual) 0.5 Eosinophils # 0.1 0.1 Basophils # 0.0 0.0 Nucleated Red Blood 0.0 0.0 Cells # Platelet Estimate DECREASED Anisocytosis 2+ Macrocytosis 2+ Prothrombin Time 13.1 Prothrombin Time 1.0 Ratio INR International 0.98 Normalized Ratio Activated 28.4 Partial Thromboplast Time Sodium Level 139 141 Potassium Level 3.6 3.9 Chloride Level 95 L 98 Carbon Dioxide Level 25 24 Anion Gap 19 H 19 H Blood Urea Nitrogen 16 15 Creatinine 1.06 0.81 Est Glomerular > 60 > 60 Filtrat Rate mL/min Glucose Level 214 170 Calcium Level 9.7 8.8 Troponin I < 0.012 Total Bilirubin 1.0 Direct Bilirubin 0.00 Indirect Bilirubin 1.0 Aspartate Amino 69 H Transf (AST/SGOT) Alanine 41 Aminotransferase (AL T/SGPT) Alkaline Phosphatase 63 Total Protein 7.5 Albumin 4.5 Globulin 3.00 Albumin/Globulin 1.50 Ratio Lipase 334 H Ethyl Alcohol Level < 10.0 H Exam/Review of Systems Exam Vitals Vital Signs Date Temp Pulse Resp B/P (MAP) Pulse Ox O2 O2 Flow FiO2 Time Delivery Rate 11/16/18 98.4 95 16 140/97 97 Room Air 14:00 (111) Intake and Output 11/15/18 11/15/18 11/16/18 1515:00 23:00 07:00 IntakeIntake Total 1000 ml BalanceBalance 1000 ml Results Results 24hrs Laboratory Tests Test 11/15/18 21:08 11/15/18 22:12 11/16/18 07:31 11/16/18 10:06 Bedside Glucose 204 178 White Blood Count 6.6 5.1 # Red Blood Count 5.02 4.41 L Hemoglobin 16.0 14.3 Hematocrit 46.7 41.7 L Mean Corpuscular 93.0 94.6 Volume Mean Corpuscular 31.9 32.4 Hemoglobin Mean Corpuscular 34.3 34.3 Hemoglobin Concent Red Cell 13.2 13.3 Distribution Width Platelet Count 96 L 74 #L Mean Platelet Volume 11.0 H 10.7 H Immature 0.300 0.200 Granulocytes % Neutrophils % 75.6 65.8 Segmented 74 Neutrophils % (Manual) Band Neutrophils % 1 (Manual) Lymphocytes % 12.8 L 16.9 Lymphocytes % 14 L (Manual) Monocytes % 9.9 15.5 H Monocytes % (Manual) 8 Eosinophils % 0.8 1.0 Eosinophils % 3 (Manual) Basophils % 0.6 0.6 Nucleated Red Blood 7 H 0.0 Cells % Immature 0.020 0.010 Granulocytes # Neutrophils # 5.0 3.4 Neutrophils # 4.9 (Manual) Band Neutrophils # 0.0 Lymphocytes (Manual) 0.9 Lymphocytes # 0.8 0.9 Monocytes # 0.7 0.8 Monocytes # (Manual) 0.5 Eosinophils # 0.1 0.1 Basophils # 0.0 0.0 Nucleated Red Blood 0.0 0.0 Cells # Platelet Estimate DECREASED Anisocytosis 2+ Macrocytosis 2+ Prothrombin Time 13.1 Prothrombin Time 1.0 Ratio INR International 0.98 Normalized Ratio Activated 28.4 Partial Thromboplast Time Sodium Level 139 141 Potassium Level 3.6 3.9 Chloride Level 95 L 98 Carbon Dioxide Level 25 24 Anion Gap 19 H 19 H Blood Urea Nitrogen 16 15 Creatinine 1.06 0.81 Est Glomerular > 60 > 60 Filtrat Rate mL/min Glucose Level 214 170 Calcium Level 9.7 8.8 Troponin I < 0.012 Total Bilirubin 1.0 Direct Bilirubin 0.00 Indirect Bilirubin 1.0 Aspartate Amino 69 H Transf (AST/SGOT) Alanine 41 Aminotransferase (AL T/SGPT) Alkaline Phosphatase 63 Total Protein 7.5 Albumin 4.5 Globulin 3.00 Albumin/Globulin 1.50 Ratio Lipase 334 H Ethyl Alcohol Level < 10.0 H Medications Medication Current Medications Ondansetron HCl (Zofran Inj) 4 mg ER BRIDGE PRN IV NAUSEA/VOMITING Last admin istered on 11/16/18at 07:10; Admin Dose 4 MG; Start 11/16/18 at 06:00; Stop 11/17/18 at 05:59 Acetaminophen (Tylenol Tab) 650 mg ER BRIDGE PRN PO .MILD PAIN 1-3 OR TEMP; Start 11/16/18 at 06:00; Stop 11/17/18 at 05:59 Lorazepam (Ativan) 2 mg Q2H PRN IV CONTROL WITHDRAWAL SYMPTOMS Last administered on 11/16/18at 14:15; Admin Dose 2 MG; Start 11/16/18 at 06:30 Lorazepam (Ativan) 1 mg Q4H PRN IV CONTROL WITHDRAWAL SYMPTOMS; Start 11/16/18 at 09:00; Status UNV IV Flush (NS 3 ml) 3 ml PER PROTOCOL IV ; Start 11/16/18 at 09:00 Ondansetron HCl (Zofran Inj) 4 mg Q6H PRN IV NAUSEA/VOMITING; Start 11/16/18 at 09:00 Acetaminophen (Tylenol Tab) 650 mg Q6H PRN PO .PAIN 1-3 OR TEMP; Start 11/16/18 at 09:00 Docusate Sodium (Colace) 100 mg Q12H PRN PO .CONSTIPATION; Start 11/16/18 at 09:00 Bisacodyl (Dulcolax) 5 mg DAILY PRN PO .CONSTIPATION; Start 11/16/18 at 09:00 Aspirin (Aspirin) 81 mg DAILY PO Last administered on 11/16/18at 10:08; Admin Dose 81 MG; Start 11/16/18 at 09:00 Atorvastatin Calcium (Lipitor) 80 mg QHS PO ; Start 11/16/18 at 21:00 Insulin Glargine (Lantus) 5 unit DAILY SC Last administered on 11/16/18at 10:10; Admin Dose 5 UNIT; Start 11/16/18 at 09:00 Labetalol HCl (Labetalol) 10 mg Q4H PRN IV blood pressure; Start 11/16/18 at 09:00 Miscellaneous Information 1 ea NOTE XX ; Start 11/16/18 at 10:30 Glucose (Glutose) 15 gm Q15M PRN PO DECREASED GLUCOSE; Start 11/16/18 at 10:30 Glucose (Glutose) 22.5 gm Q15M PRN PO DECREASED GLUCOSE; Start 11/16/18 at 10:30 Dextrose (D50w Syringe) 25 ml Q15M PRN IV DECREASED GLUCOSE; Start 11/16/18 at 10:30 Dextrose (D50w Syringe) 50 ml Q15M PRN IV DECREASED GLUCOSE; Start 11/16/18 at 10:30 Glucagon (Glucagen) 1 mg Q15M PRN IM DECREASED GLUCOSE; Start 11/16/18 at 10:30 Glucose (Glutose) 15 gm Q15M PRN BUCCAL DECREASED GLUCOSE; Start 11/16/18 at 10:30 GIOVANNI GARCIA Nov 16, 2018 16:22
[2018-11-16 17:08] VITALS: PULSE 70
[2018-11-16 17:25] VITALS: BP 133/86; PULSE 78; RESP 12
[2018-11-16] MEDS: SOD CHLORIDE 0.45% 1,000 ML IV SCH (18:06)
[2018-11-16 20:00] VITALS: BP 130/82; PULSE 69; PULSE 79; RESP 16
[2018-11-16] MEDS: ATORVASTATIN 80 MG TAB PO SCH (21:11)
[2018-11-16 21:20] VITALS: BP 134/80; PULSE 83
[2018-11-16 21:21] VITALS: BP 133/70; PULSE 100
[2018-11-16 21:23] VITALS: BP 129/85; PULSE 110
[2018-11-16 21:39] VITALS: Ht 180.3 cm; Wt 110.5 kg
[2018-11-16] MEDS ORDERED: SOD CHLORIDE 0.9% 500 ML IV ONE (22:00)
[2018-11-17] VITALS (13 sets, daily range): BP systolic 124–173; BP diastolic 71–101; PULSE 62–90; RESP 18–21
[2018-11-17] MEDS: INSULIN ASPART [NOVOLOG] 3 ML PEN SC SCH ×6 (00:42→20:23)
[2018-11-17] MEDS: SOD CHLORIDE 0.45% 1,000 ML IV SCH ×2 (04:37→16:25)
[2018-11-17] MEDS: ACETAMINOPHEN 325 MG TAB PO PRN ×2 (05:14→11:24)
[2018-11-17] MEDS: ASPIRIN 81 MG TAB PO SCH (09:21)
[2018-11-17] MEDS ORDERED: POTASSIUM CHLORIDE 100 ML IVPB SCH (10:00)
[2018-11-17] MEDS: INSULIN GLARGINE [LANtus] 3 ML PEN SC SCH (10:32)
[2018-11-17] MEDS ORDERED: POTASSIUM CHLORIDE (SR) 20 MEQ TAB PO STA (11:12)
--- NOTE | 2018-11-17 12:25 | PN ---
Date/Time of Note Date/Time of Note DATE: 11/17/18 TIME: 12:22 Assessment/Plan VTE Prophylaxis Risk score (from Nsg)>0 risk: 2 SCD applied (from Nsg): Yes Pharmacological prophylaxis: other Lines/Catheters IV Catheter Type (from Nrsg): Peripheral IV Urinary Cath still in place: No Assessment/Plan Hospital Course S: Patient still complaining of some abdominal pain rating to the back. Denies any left-sided weakness symptoms presently. Seen by physical therapy team earlier. O: VS - see below PE: General: lying in bed in no acute distress, slightly disheveled appearing HEENT: Atraumatic, normocephalic. The pupils are equal, round and reactive. Extraocular motor are intact Neck: Supple with full range of motion. No rigidity or meningismus Chest: Nontender Lungs: Clear to auscultation bilaterally no crackles rales or wheezing Heart: Sinus tachycardia Abdomen: Soft, tenderness palpation of the epigastric area, normal bowel sounds, no guarding or wheezing. Musculoskeletal: Some tenderness palpation along the lumbar and thoracic spine. Neurologic: No focal deficits CT T-spine: IMPRESSION: No acute osseous abnormality including no acute or significant compression deformity, nor listhesis. 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 A/P: 53-year-old male being admitted to the telemetry floor for observation for: #1 left-sided weakness with possible syncope: Initial concern for possible TIA versus CVA versus vasovagal event versus orthostatic versus alcohol. However MRI brain did not show any acute findings. Patient had CT imaging studies performed in the emergency department that did not show any acute abnormalities as well. -Monitor vital signs, continue PT, overall his symptoms are resolving now -Follow-up further rec's from neurology. - Continue aspirin #2 headaches: Slightly improved, per neurology team, complicated migraines is a possibility for diagnosis -Continue pain control medications for now, follow further recommendations from neurology #3 Abdominal pain: Patient does have a prior history of pancreatitis. Patient reports that he drank approximately 1 week ago. - f/u lipase level, final results of CT abdomen pelvis without contrast. #4 history of heavy alcohol use: Patient presented as disheveled, -Continue to monitor for any signs of withdrawal. - PRN Ativan, banana bag #5 diabetes mellitus: Sugars presently stable -Follow-up results of hemoglobin A 1C, insulin sliding scale, hold home oral medications, home Lantus #6 hypertension: Stable now, again MRI brain did not show any acute findings -Monitor, hydralazine as needed #7 lumbar spinal pain: CT T-spine results reviewed -Continue pain control medications, PT consult eval # mild pancreatitis; lipase still slightly elevated but trending down now, patient however still has abdominal pain -For now keep n.p.o. until dinnertime and cautiously will start clear liquid diet at that time Result Diagram: 11/17/18 0450 11/17/18 0521 Results 24hrs Laboratory Tests Test 11/16/18 21:52 11/17/18 00:19 11/17/18 04:40 11/17/18 04:50 Bedside Glucose 124 177 128 White Blood Count 3.9 #L Red Blood Count 4.36 L Hemoglobin 14.0 Hematocrit 41.1 L Mean Corpuscular 94.3 Volume Mean Corpuscular 32.1 Hemoglobin Mean Corpuscular 34.1 Hemoglobin Concent Red Cell 13.3 Distribution Width Platelet Count 61 L Mean Platelet Volume 10.8 H Immature 0.300 Granulocytes % Neutrophils % 54.4 Lymphocytes % 23.7 Monocytes % 16.5 H Eosinophils % 4.6 Basophils % 0.5 Nucleated Red Blood 0.0 Cells % Immature 0.010 Granulocytes # Neutrophils # 2.1 Lymphocytes # 0.9 Monocytes # 0.7 Eosinophils # 0.2 Basophils # 0.0 Nucleated Red Blood 0.0 Cells # Test 11/17/18 05:21 11/17/18 07:39 11/17/18 11:55 Sodium Level 139 Potassium Level 3.3 L Chloride Level 100 Carbon Dioxide Level 25 Anion Gap 14 H Blood Urea Nitrogen 14 Creatinine 0.63 Est Glomerular > 60 Filtrat Rate mL/min Glucose Level 134 Hemoglobin A1c 10.2 H Calcium Level 8.1 L Magnesium Level 1.5 L Total Bilirubin 1.5 H Direct Bilirubin 0.00 Indirect Bilirubin 1.5 H Aspartate Amino 57 H Transf (AST/SGOT) Alanine 37 Aminotransferase (AL T/SGPT) Alkaline Phosphatase 51 Total Protein 6.6 Albumin 3.7 Globulin 2.90 Albumin/Globulin 1.27 Ratio Triglycerides Level 50 Cholesterol Level 161 LDL Cholesterol, 58 Calculated HDL Cholesterol 93 H Cholesterol/HDL 1.7 Ratio Lipase 310 H Thyroid Stimulating 3.500 Hormone (TSH) Bedside Glucose 118 106 Exam/Review of Systems Exam Vitals Vital Signs Date Temp Pulse Resp B/P (MAP) Pulse Ox O2 O2 Flow FiO2 Time Delivery Rate 11/17/18 90 12:18 11/17/18 98.0 20 156/87 98 Room Air 11:19 (110) Intake and Output 11/16/18 11/16/18 11/17/18 1515:00 23:00 07:00 IntakeIntake Total 200 ml 1720 ml OutputOutput Total 425 ml BalanceBalance 200 ml 1295 ml Results Results 24hrs Laboratory Tests Test 11/16/18 21:52 11/17/18 00:19 11/17/18 04:40 11/17/18 04:50 Bedside Glucose 124 177 128 White Blood Count 3.9 #L Red Blood Count 4.36 L Hemoglobin 14.0 Hematocrit 41.1 L Mean Corpuscular 94.3 Volume Mean Corpuscular 32.1 Hemoglobin Mean Corpuscular 34.1 Hemoglobin Concent Red Cell 13.3 Distribution Width Platelet Count 61 L Mean Platelet Volume 10.8 H Immature 0.300 Granulocytes % Neutrophils % 54.4 Lymphocytes % 23.7 Monocytes % 16.5 H Eosinophils % 4.6 Basophils % 0.5 Nucleated Red Blood 0.0 Cells % Immature 0.010 Granulocytes # Neutrophils # 2.1 Lymphocytes # 0.9 Monocytes # 0.7 Eosinophils # 0.2 Basophils # 0.0 Nucleated Red Blood 0.0 Cells # Test 11/17/18 05:21 11/17/18 07:39 11/17/18 11:55 Sodium Level 139 Potassium Level 3.3 L Chloride Level 100 Carbon Dioxide Level 25 Anion Gap 14 H Blood Urea Nitrogen 14 Creatinine 0.63 Est Glomerular > 60 Filtrat Rate mL/min Glucose Level 134 Hemoglobin A1c 10.2 H Calcium Level 8.1 L Magnesium Level 1.5 L Total Bilirubin 1.5 H Direct Bilirubin 0.00 Indirect Bilirubin 1.5 H Aspartate Amino 57 H Transf (AST/SGOT) Alanine 37 Aminotransferase (AL T/SGPT) Alkaline Phosphatase 51 Total Protein 6.6 Albumin 3.7 Globulin 2.90 Albumin/Globulin 1.27 Ratio Triglycerides Level 50 Cholesterol Level 161 LDL Cholesterol, 58 Calculated HDL Cholesterol 93 H Cholesterol/HDL 1.7 Ratio Lipase 310 H Thyroid Stimulating 3.500 Hormone (TSH) Bedside Glucose 118 106 Medications Medication Current Medications Lorazepam (Ativan) 0.5 mg Q6H PRN IV AGITATION; Start 11/16/18 at 10:30 IV Flush (NS 3 ml) 3 ml PER PROTOCOL IV ; Start 11/16/18 at 09:00 Ondansetron HCl (Zofran Inj) 4 mg Q6H PRN IV NAUSEA/VOMITING; Start 11/16/18 at 09:00 Acetaminophen (Tylenol Tab) 650 mg Q6H PRN PO .PAIN 1-3 OR TEMP Last administered on 11/17/18at 11:24; Admin Dose 650 MG; Start 11/16/18 at 09:00 Docusate Sodium (Colace) 100 mg Q12H PRN PO .CONSTIPATION; Start 11/16/18 at 09:00 Bisacodyl (Dulcolax) 5 mg DAILY PRN PO .CONSTIPATION; Start 11/16/18 at 09:00 Aspirin (Aspirin) 81 mg DAILY PO Last administered on 11/17/18at 09:21; Admin Dose 81 MG; Start 11/16/18 at 09:00 Atorvastatin Calcium (Lipitor) 80 mg QHS PO Last administered on 11/16/18at 21:11; Admin Dose 80 MG; Start 11/16/18 at 21:00 Insulin Glargine (Lantus) 5 unit DAILY SC Last administered on 11/17/18at 10:32; Admin Dose 5 UNIT; Start 11/16/18 at 09:00 Labetalol HCl (Labetalol) 10 mg Q4H PRN IV blood pressure; Start 11/16/18 at 09:00 Miscellaneous Information 1 ea NOTE XX ; Start 11/16/18 at 10:30 Glucose (Glutose) 15 gm Q15M PRN PO DECREASED GLUCOSE; Start 11/16/18 at 10:30 Glucose (Glutose) 22.5 gm Q15M PRN PO DECREASED GLUCOSE; Start 11/16/18 at 10:30 Dextrose (D50w Syringe) 25 ml Q15M PRN IV DECREASED GLUCOSE; Start 11/16/18 at 10:30 Dextrose (D50w Syringe) 50 ml Q15M PRN IV DECREASED GLUCOSE; Start 11/16/18 at 10:30 Glucagon (Glucagen) 1 mg Q15M PRN IM DECREASED GLUCOSE; Start 11/16/18 at 10:30 Glucose (Glutose) 15 gm Q15M PRN BUCCAL DECREASED GLUCOSE; Start 11/16/18 at 10:30 Sodium Chloride 1,000 ml @ 100 mls/hr Q10H IV Last administered on 11/17/18at 04:37; Admin Dose 100 MLS/HR; Start 11/16/18 at 18:00 Insulin Aspart (Novolog Insulin Pen) NOVOLOG *MILD* ALGORI... Q4 SC Last administered on 11/17/18at 00:42; Admin Dose 1 UNIT; Start 11/17/18 at 01:00 Magnesium Sulfate 50 ml @ 25 mls/hr ONCE ONCE IVPB ; Start 11/17/18 at 12:30; Stop 11/17/18 at 14:29 GIOVANNI GARCIA Nov 17, 2018 12:25
[2018-11-17] MEDS ORDERED: MAGNESIUM SULFATE 2 GM/50 ML 50 ML IVPB ONE (12:30)
[2018-11-17] MEDS: HYDROCODONE/APAP (5/325) TAB PO PRN ×2 (12:43→16:30)
[2018-11-17] MEDS: ONDANSETRON 4 MG INJ IV PRN (18:48)
[2018-11-17] MEDS: ATORVASTATIN 80 MG TAB PO SCH (20:20)
[2018-11-17] MEDS: traMADol 50 MG TAB PO PRN (20:20)
[2018-11-18] VITALS (16 sets, daily range): BP systolic 118–140; BP diastolic 60–94; PULSE 52–95; RESP 17–22
[2018-11-18] MEDS: INSULIN ASPART [NOVOLOG] 3 ML PEN SC SCH ×6 (01:00→20:08)
[2018-11-18] MEDS: SOD CHLORIDE 0.45% 1,000 ML IV SCH ×3 (02:48→20:05)
[2018-11-18] MEDS: ONDANSETRON 4 MG INJ IV PRN ×2 (02:49→08:50)
[2018-11-18] MEDS: ASPIRIN 81 MG TAB PO SCH (08:24)
[2018-11-18] MEDS: INSULIN GLARGINE [LANtus] 3 ML PEN SC SCH (09:39)
[2018-11-18] MEDS: LORAZEPAM 2 MG INJ IV PRN ×2 (09:42→17:12)
--- NOTE | 2018-11-18 14:39 | PN ---
Date/Time of Note Date/Time of Note DATE: 11/18/18 TIME: 14:38 Assessment/Plan VTE Prophylaxis Risk score (from Nsg)>0 risk: 2 SCD applied (from Nsg): Yes Pharmacological prophylaxis: other Lines/Catheters IV Catheter Type (from Nrsg): Peripheral IV Urinary Cath still in place: No Assessment/Plan Hospital Course S: Patient had some nausea symptoms earlier today, but otherwise was tolerating clear liquid diet last night and earlier today. O: VS - see below PE: General: lying in bed in no acute distress, slightly disheveled appearing HEENT: Atraumatic, normocephalic. The pupils are equal, round and reactive. Extraocular motor are intact Neck: Supple with full range of motion. No rigidity or meningismus Chest: Nontender Lungs: Clear to auscultation bilaterally no crackles rales or wheezing Heart: Sinus tachycardia Abdomen: Soft, tenderness palpation of the epigastric area, normal bowel sounds, no guarding or wheezing. Musculoskeletal: Some tenderness palpation along the lumbar and thoracic spine. Neurologic: No focal deficits CT T-spine: IMPRESSION: No acute osseous abnormality including no acute or significant compression deformity, nor listhesis. 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 A/P: 53-year-old male being admitted to the telemetry floor for observation for: #1 left-sided weakness with possible syncope: Initial concern for possible TIA versus CVA versus vasovagal event versus orthostatic versus alcohol. However MRI brain did not show any acute findings. Patient had CT imaging studies performed in the emergency department that did not show any acute abnormalities as well. -Monitor vital signs, continue PT, overall his symptoms are resolving now -Follow-up further rec's from neurology. - Continue aspirin #2 headaches: Slightly improved, per neurology team, complicated migraines is a possibility for diagnosis -Continue pain control medications for now, follow further recommendations from neurology #3 Abdominal pain: Slowly resolving now, patient does have a prior history of pancreatitis. Patient reports that he drank approximately 1 week ago and he did come in with slight pink otitis with slight lipase elevation which is trending down now -For now continue clear liquid diet and advance as tolerated #4 history of heavy alcohol use: Patient presented as disheveled, but appears more awake and alert now -Continue to monitor for any signs of withdrawal. - PRN Ativan, banana bag #5 diabetes mellitus: Sugars presently stable, A1c equals 10.2 -Monitor sugars, continue insulin sliding scale, hold home oral medications, home Lantus #6 hypertension: Stable now, again MRI brain did not show any acute findings -Monitor, hydralazine as needed #7 lumbar spinal pain: CT T-spine results reviewed -Continue pain control medications, PT consult eval # mild pancreatitis; again less abdominal pain now a lipase levels have trended down to normal range. Tolerated clear liquid diet last night, but did have some nausea this morning -Again we are going try to advance his diet as tolerated today Dispo: Likely home in 24 hours if he handles the advancement of his diet, and his nausea symptoms resolved Result Diagram: 11/18/18 0455 11/18/18 0455 Results 24hrs Laboratory Tests Test 11/17/18 16:24 11/17/18 20:22 11/18/18 01:04 11/18/18 04:55 Bedside Glucose 110 106 113 120 White Blood Count 3.3 L Red Blood Count 4.37 L Hemoglobin 14.0 Hematocrit 41.4 L Mean Corpuscular 94.7 Volume Mean Corpuscular 32.0 Hemoglobin Mean Corpuscular 33.8 Hemoglobin Concent Red Cell 12.7 Distribution Width Platelet Count 58 L Mean Platelet Volume 11.1 H Immature 0.300 Granulocytes % Neutrophils % 49.1 Lymphocytes % 29.6 Monocytes % 15.5 H Eosinophils % 4.9 Basophils % 0.6 Nucleated Red Blood 0.0 Cells % Immature 0.010 Granulocytes # Neutrophils # 1.6 Lymphocytes # 1.0 Monocytes # 0.5 Eosinophils # 0.2 Basophils # 0.0 Nucleated Red Blood 0.0 Cells # Sodium Level 136 Potassium Level 3.7 Chloride Level 99 Carbon Dioxide Level 26 Anion Gap 11 Blood Urea Nitrogen 9 Creatinine 0.56 L Est Glomerular > 60 Filtrat Rate mL/min Glucose Level 133 Calcium Level 7.5 L Lipase 90 Test 11/18/18 07:31 11/18/18 09:37 11/18/18 12:01 Bedside Glucose 150 159 128 Exam/Review of Systems Exam Vitals Vital Signs Date Temp Pulse Resp B/P (MAP) Pulse Ox O2 O2 Flow FiO2 Time Delivery Rate 11/18/18 93 120/85 14:33 (97) 11/18/18 98.0 22 96 Nasal 2.0 11:11 Cannula Intake and Output 11/17/18 11/17/18 11/18/18 1515:00 23:00 07:00 IntakeIntake Total 2160 ml 640 ml OutputOutput Total 200 ml 1300 ml BalanceBalance 1960 ml -660 ml Results Results 24hrs Laboratory Tests Test 11/17/18 16:24 11/17/18 20:22 11/18/18 01:04 11/18/18 04:55 Bedside Glucose 110 106 113 120 White Blood Count 3.3 L Red Blood Count 4.37 L Hemoglobin 14.0 Hematocrit 41.4 L Mean Corpuscular 94.7 Volume Mean Corpuscular 32.0 Hemoglobin Mean Corpuscular 33.8 Hemoglobin Concent Red Cell 12.7 Distribution Width Platelet Count 58 L Mean Platelet Volume 11.1 H Immature 0.300 Granulocytes % Neutrophils % 49.1 Lymphocytes % 29.6 Monocytes % 15.5 H Eosinophils % 4.9 Basophils % 0.6 Nucleated Red Blood 0.0 Cells % Immature 0.010 Granulocytes # Neutrophils # 1.6 Lymphocytes # 1.0 Monocytes # 0.5 Eosinophils # 0.2 Basophils # 0.0 Nucleated Red Blood 0.0 Cells # Sodium Level 136 Potassium Level 3.7 Chloride Level 99 Carbon Dioxide Level 26 Anion Gap 11 Blood Urea Nitrogen 9 Creatinine 0.56 L Est Glomerular > 60 Filtrat Rate mL/min Glucose Level 133 Calcium Level 7.5 L Lipase 90 Test 11/18/18 07:31 11/18/18 09:37 11/18/18 12:01 Bedside Glucose 150 159 128 Medications Medication Current Medications Lorazepam (Ativan) 0.5 mg Q6H PRN IV AGITATION Last administered on 11/18/18at 09:42; Admin Dose 0.5 MG; Start 11/16/18 at 10:30 IV Flush (NS 3 ml) 3 ml PER PROTOCOL IV ; Start 11/16/18 at 09:00 Ondansetron HCl (Zofran Inj) 4 mg Q6H PRN IV NAUSEA/VOMITING Last administered on 11/18/18at 08:50; Admin Dose 4 MG; Start 11/16/18 at 09:00 Acetaminophen (Tylenol Tab) 650 mg Q6H PRN PO .PAIN 1-3 OR TEMP Last administered on 11/17/18at 11:24; Admin Dose 650 MG; Start 11/16/18 at 09:00 Docusate Sodium (Colace) 100 mg Q12H PRN PO .CONSTIPATION; Start 11/16/18 at 09:00 Bisacodyl (Dulcolax) 5 mg DAILY PRN PO .CONSTIPATION; Start 11/16/18 at 09:00 Aspirin (Aspirin) 81 mg DAILY PO Last administered on 11/18/18at 08:24; Admin Dose 81 MG; Start 11/16/18 at 09:00 Atorvastatin Calcium (Lipitor) 80 mg QHS PO Last administered on 11/17/18at 20:20; Admin Dose 80 MG; Start 11/16/18 at 21:00 Labetalol HCl (Labetalol) 10 mg Q4H PRN IV blood pressure; Start 11/16/18 at 09:00 Miscellaneous Information 1 ea NOTE XX ; Start 11/16/18 at 10:30 Glucose (Glutose) 15 gm Q15M PRN PO DECREASED GLUCOSE; Start 11/16/18 at 10:30 Glucose (Glutose) 22.5 gm Q15M PRN PO DECREASED GLUCOSE; Start 11/16/18 at 10:30 Dextrose (D50w Syringe) 25 ml Q15M PRN IV DECREASED GLUCOSE; Start 11/16/18 at 10:30 Dextrose (D50w Syringe) 50 ml Q15M PRN IV DECREASED GLUCOSE; Start 11/16/18 at 10:30 Glucagon (Glucagen) 1 mg Q15M PRN IM DECREASED GLUCOSE; Start 11/16/18 at 10:30 Glucose (Glutose) 15 gm Q15M PRN BUCCAL DECREASED GLUCOSE; Start 11/16/18 at 10:30 Sodium Chloride 1,000 ml @ 100 mls/hr Q10H IV Last administered on 11/18/18at 02:48; Admin Dose 100 MLS/HR; Start 11/16/18 at 18:00 Insulin Aspart (Novolog Insulin Pen) NOVOLOG *MILD* ALGORI... Q4 SC Last administered on 11/18/18at 08:54; Admin Dose 1 UNIT; Start 11/17/18 at 01:00 Acetaminophen/ Hydrocodone Bitart ([place] (5/325)) 1 tab Q6H PRN PO MODERATE PAIN LEVEL 4-6 Last administered on 11/17/18at 16:30; Admin Dose 1 TAB; Start 11/17/18 at 12:30 Tramadol HCl (Ultram) 50 mg Q6H PRN PO MODERATE PAIN LEVEL 4-6 Last administered on 11/17/18at 20:20; Admin Dose 50 MG; Start 11/17/18 at 19:30 Insulin Glargine (Lantus) 5 units DAILY SC ; Start 11/19/18 at 09:00 GIOVANNI GARCIA Nov 18, 2018 14:39
[2018-11-18] MEDS: traMADol 50 MG TAB PO PRN (15:47)
[2018-11-18] MEDS: ATORVASTATIN 80 MG TAB PO SCH (20:05)
[2018-11-19] VITALS (12 sets, daily range): BP systolic 111–167; BP diastolic 72–92; PULSE 64–88; RESP 16–20
[2018-11-19] MEDS: INSULIN ASPART [NOVOLOG] 3 ML PEN SC SCH ×6 (00:50→20:10)
[2018-11-19] MEDS: ONDANSETRON 4 MG INJ IV PRN ×3 (04:34→14:21)
[2018-11-19] MEDS: SOD CHLORIDE 0.45% 1,000 ML IV SCH ×3 (06:00→22:38)
[2018-11-19] MEDS: INSULIN GLARGINE [LANTus] (100 UNITS/ML) SYG SC SCH (09:02)
[2018-11-19] MEDS: ASPIRIN 81 MG TAB PO SCH (09:05)
[2018-11-19] MEDS: traMADol 50 MG TAB PO PRN ×2 (12:21→21:54)
--- NOTE | 2018-11-19 14:33 | PN ---
Date/Time of Note Date/Time of Note DATE: 11/19/18 TIME: 14:32 Assessment/Plan VTE Prophylaxis Risk score (from Nsg)>0 risk: 2 SCD applied (from Nsg): Yes Pharmacological prophylaxis: other Lines/Catheters IV Catheter Type (from Nrsg): Peripheral IV Urinary Cath still in place: No Assessment/Plan Hospital Course S: Patient patient still with some vomiting symptoms after eating. O: VS - see below PE: General: lying in bed in no acute distress, slightly disheveled appearing HEENT: Atraumatic, normocephalic. The pupils are equal, round and reactive. Extraocular motor are intact Neck: Supple with full range of motion. No rigidity or meningismus Chest: Nontender Lungs: Clear to auscultation bilaterally no crackles rales or wheezing Heart: Sinus tachycardia Abdomen: Soft, tenderness palpation of the epigastric area, normal bowel sounds, no guarding or wheezing. Musculoskeletal: Some tenderness palpation along the lumbar and thoracic spine. Neurologic: No focal deficits CT T-spine: IMPRESSION: No acute osseous abnormality including no acute or significant compression deformity, nor listhesis. 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 A/P: 53-year-old male being admitted to the telemetry floor for observation for: #1 left-sided weakness with possible syncope: Initial concern for possible TIA versus CVA versus vasovagal event versus orthostatic versus alcohol. However MRI brain did not show any acute findings. Patient had CT imaging studies performed in the emergency department that did not show any acute abnormalities as well. -Monitor vital signs, continue PT, overall his symptoms are resolving now -Follow-up further rec's from neurology. - Continue aspirin #2 headaches: Slightly improved, per neurology team, complicated migraines is a possibility for diagnosis -Continue pain control medications for now, follow further recommendations from neurology #3 Abdominal pain: Slowly resolving now, patient does have a prior history of pancreatitis. Patient reports that he drank approximately 1 week ago and he did come in with slight pink otitis with slight lipase elevation on admission which is now in the normal range, however patient still having vomiting symptoms but less abdominal pain. -For now continue full liquid diet, will increase the dose of antiemetic medication #4 history of heavy alcohol use: Patient presented as disheveled, but appears more awake and alert now -Continue to monitor for any signs of withdrawal. - PRN Ativan, banana bag #5 diabetes mellitus: Sugars presently stable, A1c equals 10.2 -Monitor sugars, continue insulin sliding scale, hold home oral medications, home Lantus #6 hypertension: Stable now, again MRI brain did not show any acute findings -Monitor, hydralazine as needed #7 lumbar spinal pain: CT T-spine results reviewed -Continue pain control medications, PT consult eval # mild pancreatitis; again less abdominal pain now a lipase levels have trended down to normal range. Tolerated clear liquid diet last night, but did have some nausea this morning -Again we are going try to advance his diet as tolerated today Dispo: Likely home in 24 hours if he handles the advancement of his diet, and his nausea symptoms resolved Result Diagram: 11/19/18 0454 11/19/18 0454 Results 24hrs Laboratory Tests Test 11/18/18 16:56 11/18/18 20:07 11/19/18 00:49 11/19/18 04:32 Bedside Glucose 117 133 113 111 Test 11/19/18 04:54 11/19/18 08:48 11/19/18 12:17 White Blood Count 6.0 # Red Blood Count 4.35 L Hemoglobin 14.0 Hematocrit 40.6 L Mean Corpuscular 93.3 Volume Mean Corpuscular 32.2 Hemoglobin Mean Corpuscular 34.5 Hemoglobin Concent Red Cell 12.8 Distribution Width Platelet Count 68 L Mean Platelet Volume 11.2 H Immature 0.300 Granulocytes % Neutrophils % 64.5 Lymphocytes % 15.5 Monocytes % 16.0 H Eosinophils % 3.4 Basophils % 0.3 Nucleated Red Blood 0.0 Cells % Immature 0.020 Granulocytes # Neutrophils # 3.8 Lymphocytes # 0.9 Monocytes # 1.0 H Eosinophils # 0.2 Basophils # 0.0 Nucleated Red Blood 0.0 Cells # Sodium Level 137 Potassium Level 3.4 L Chloride Level 100 Carbon Dioxide Level 23 Anion Gap 14 H Blood Urea Nitrogen 8 Creatinine 0.58 L Est Glomerular > 60 Filtrat Rate mL/min Glucose Level 107 Calcium Level 7.9 L Bedside Glucose 157 126 Exam/Review of Systems Exam Vitals Vital Signs Date Temp Pulse Resp B/P (MAP) Pulse Ox O2 O2 Flow FiO2 Time Delivery Rate 11/19/18 82 12:00 11/19/18 98.7 16 136/79 98 11:46 (98) 11/18/18 Nasal 2.0 11:11 Cannula Intake and Output 11/18/18 11/18/18 11/19/18 1515:00 23:00 07:00 IntakeIntake Total 350 ml 1750 ml 1350 ml OutputOutput Total 700 ml 1100 ml 150 ml BalanceBalance -350 ml 650 ml 1200 ml Results Results 24hrs Laboratory Tests Test 11/18/18 16:56 11/18/18 20:07 11/19/18 00:49 11/19/18 04:32 Bedside Glucose 117 133 113 111 Test 11/19/18 04:54 11/19/18 08:48 11/19/18 12:17 White Blood Count 6.0 # Red Blood Count 4.35 L Hemoglobin 14.0 Hematocrit 40.6 L Mean Corpuscular 93.3 Volume Mean Corpuscular 32.2 Hemoglobin Mean Corpuscular 34.5 Hemoglobin Concent Red Cell 12.8 Distribution Width Platelet Count 68 L Mean Platelet Volume 11.2 H Immature 0.300 Granulocytes % Neutrophils % 64.5 Lymphocytes % 15.5 Monocytes % 16.0 H Eosinophils % 3.4 Basophils % 0.3 Nucleated Red Blood 0.0 Cells % Immature 0.020 Granulocytes # Neutrophils # 3.8 Lymphocytes # 0.9 Monocytes # 1.0 H Eosinophils # 0.2 Basophils # 0.0 Nucleated Red Blood 0.0 Cells # Sodium Level 137 Potassium Level 3.4 L Chloride Level 100 Carbon Dioxide Level 23 Anion Gap 14 H Blood Urea Nitrogen 8 Creatinine 0.58 L Est Glomerular > 60 Filtrat Rate mL/min Glucose Level 107 Calcium Level 7.9 L Bedside Glucose 157 126 Medications Medication Current Medications Lorazepam (Ativan) 0.5 mg Q6H PRN IV AGITATION Last administered on 11/18/18at 17:12; Admin Dose 0.5 MG; Start 11/16/18 at 10:30 IV Flush (NS 3 ml) 3 ml PER PROTOCOL IV ; Start 11/16/18 at 09:00 Ondansetron HCl (Zofran Inj) 4 mg Q6H PRN IV NAUSEA/VOMITING Last administered on 11/19/18at 14:21; Admin Dose 4 MG; Start 11/16/18 at 09:00 Acetaminophen (Tylenol Tab) 650 mg Q6H PRN PO .PAIN 1-3 OR TEMP Last administered on 11/17/18at 11:24; Admin Dose 650 MG; Start 11/16/18 at 09:00 Docusate Sodium (Colace) 100 mg Q12H PRN PO .CONSTIPATION; Start 11/16/18 at 09:00 Bisacodyl (Dulcolax) 5 mg DAILY PRN PO .CONSTIPATION; Start 11/16/18 at 09:00 Aspirin (Aspirin) 81 mg DAILY PO Last administered on 11/19/18 09:05; Admin Dose 81 MG; Start 11/16/18 at 09:00 Atorvastatin Calcium (Lipitor) 80 mg QHS PO Last administered on 11/18/18at 20:05; Admin Dose 80 MG; Start 11/16/18 at 21:00 Labetalol HCl (Labetalol) 10 mg Q4H PRN IV blood pressure; Start 11/16/18 at 09:00 Miscellaneous Information 1 ea NOTE XX ; Start 11/16/18 at 10:30 Glucose (Glutose) 15 gm Q15M PRN PO DECREASED GLUCOSE; Start 11/16/18 at 10:30 Glucose (Glutose) 22.5 gm Q15M PRN PO DECREASED GLUCOSE; Start 11/16/18 at 10:30 Dextrose (D50w Syringe) 25 ml Q15M PRN IV DECREASED GLUCOSE; Start 11/16/18 at 10:30 Dextrose (D50w Syringe) 50 ml Q15M PRN IV DECREASED GLUCOSE; Start 11/16/18 at 10:30 Glucagon (Glucagen) 1 mg Q15M PRN IM DECREASED GLUCOSE; Start 11/16/18 at 10:30 Glucose (Glutose) 15 gm Q15M PRN BUCCAL DECREASED GLUCOSE; Start 11/16/18 at 10:30 Sodium Chloride 1,000 ml @ 100 mls/hr Q10H IV Last administered on 11/19/18at 12:23; Admin Dose 100 MLS/HR; Start 11/16/18 at 18:00 Insulin Aspart (Novolog Insulin Pen) NOVOLOG *MILD* ALGORI... Q4 SC Last administered on 11/19/18at 09:06; Admin Dose 1 UNIT; Start 11/17/18 at 01:00 Acetaminophen/ Hydrocodone Bitart ([place] (5/325)) 1 tab Q6H PRN PO MODERATE PAIN LEVEL 4-6 Last administered on 11/17/18at 16:30; Admin Dose 1 TAB; Start at 12:30 Tramadol HCl (Ultram) 50 mg Q6H PRN PO MODERATE PAIN LEVEL 4-6 Last administered on 11/19/18at 12:21; Admin Dose 50 MG; Start 11/17/18 at 19:30 Insulin Glargine (Lantus) 5 units DAILY SC Last administered on 11/19/18at 09:02; Admin Dose 5 UNITS; Start 11/19/18 at 09:00 GIOVANNI GARCIA Nov 19, 2018 14:33
[2018-11-19] MEDS ORDERED: ONDANSETRON 4 MG INJ IV PRN (15:00)
[2018-11-19] MEDS ORDERED: TRIMETHOBENZAMIDE 100 MG/ML VIAL IM PRN (15:00)
[2018-11-19] MEDS ORDERED: ONDANSETRON INJ 8 MG in SOD CHLORIDE 0.9% 50 ML IV PRN (15:00)
[2018-11-19] MEDS: HYDROCODONE/APAP (5/325) TAB PO PRN (16:41)
[2018-11-19] MEDS: ATORVASTATIN 80 MG TAB PO SCH (21:54)
[2018-11-19] MEDS: LORAZEPAM 2 MG INJ IV PRN (22:40)
[2018-11-20] VITALS (12 sets, daily range): BP systolic 122–160; BP diastolic 77–94; PULSE 67–94; RESP 18–20
[2018-11-20] MEDS: INSULIN ASPART [NOVOLOG] 3 ML PEN SC SCH ×6 (01:00→20:01)
[2018-11-20] MEDS: ASPIRIN 81 MG TAB PO SCH (08:38)
[2018-11-20] MEDS: SOD CHLORIDE 0.45% 1,000 ML IV SCH ×2 (08:38→17:45)
[2018-11-20] MEDS: traMADol 50 MG TAB PO PRN ×2 (08:46→18:48)
[2018-11-20] MEDS: INSULIN GLARGINE [LANTus] (100 UNITS/ML) SYG SC SCH (08:51)
--- NOTE | 2018-11-20 10:45 | PDOCDIS ---
Discharge Instructions CONDITION [id number] Patient Condition: [id number] Stable HOME CARE INSTRUCTIONS: [id number] Diet Instructions: [id number] Low Fat /Cholesterol ACTIVITY: [id number] Activity Restrictions: [id number] Slowly Increase Activity Rest between Activity Avoid heavy lifting FOLLOW UP/APPOINTMENTS Follow-up Plan Please take your medications as prescribed, see your doctor in clinic in the next 1 week. GIOVANNI AGRCIA Nov 20, 2018 10:45
[2018-11-20] MEDS ORDERED: ONDA4TAB13 PO (10:47)
[2018-11-20] MEDS ORDERED: TRAM50TA2 PO (10:47)
--- NOTE | 2018-11-20 10:52 | DS ---
Date/Time of Note Date/Time of Note DATE: 11/20/18 TIME: 10:47 Discharge Summary Admission/Discharge Info Admit Date/Time Nov 18, 2018 at 14:52 Discharge Date/Time Discharge Diagnosis #1 left-sided weakness with possible syncope: Initial concern for possible TIA versus CVA versus vasovagal event versus orthostatic versus alcohol. However MRI brain did not show any acute findings. Patient had CT imaging studies performed in the emergency department that did not show any acute abnormalities as well. #2 headaches: Improved #3 Abdominal pain: Resolved now, likely secondary to mild acute pancreatitis as the patient does have a prior history of pancreatitis. #4 history of heavy alcohol use: Patient presented as disheveled, but appears more awake and alert now #5 diabetes mellitus: Sugars presently stable, A1c equals 10.2 #6 hypertension: Stable now #7 lumbar spinal pain: Improving now, CT T-spine results reviewed Patient Condition: Stable Procedures A. CT T-spine: IMPRESSION: No acute osseous abnormality including no acute or significant compression deformity, nor listhesis. 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 B. 2D echo: Conclusions: Normal left ventricular systolic function. Normal left ventricular cavity size. Mild concentric left ventricular hypertrophy. Ejection fraction is visually estimated at 60 %. Tissue Doppler/Mitral Doppler indices are consistent with impaired relaxation (Stage I diastolic dysfunction). Normal right ventricular size. Normal right ventricular systolic function. The left atrium is normal in size. The right atrium is normal in size. No significant valvular stenosis or regurgitation seen. Normal pericardium with no significant pericardial effusion. Bubble study was performed with and with out valsalva indicating no evidence of intra atrial shunt. Hx of Present Illness 53-year-old male who presented to the emergency department with multiple complaints. As per the ED physician there was a reported episode of syncope. However when I speak to the patient he gives me a different story. He states that he has a headache for 3 days. He also reports that he has had left-sided numbness of his face and his arm. He also reported generalized weakness. Patient also reports lower back pain. When asked about drinking he states that the last drink he had was 1 week ago. He denies any chest pain or shortness of breath or nausea or vomiting. Upon review of the patient's medical records he does have a history of alcohol abuse. Hospital Course Patient was admitted and seen by the team during this hospital stay. He ruled out for acute stroke as he also had echocardiogram performed and the results were reviewed. He also had some abdominal pain symptoms and was found with some mild pancreatitis and was made n.p.o. for the first couple of days of his stay. This slowly resolved. However when he was placed on liquid diet he did have some nausea symptoms and some mild abdominal pain symptoms so this was cautiously continued and he did receive antiemetics which helped control his nausea symptoms. Patient worked with physical therapy and ambulated with assistance. On the day of discharge he was able to tolerate diet and vital signs were stable as well. He will be discharged home today in improved condition. See below for list of discharge medications. Home Meds Active Scripts Tramadol HCl (Tramadol HCl) 50 Mg Tablet, 50 MG PO Q6H PRN for MODERATE PAIN LEVEL 4-6, #20 TAB Prov:GIOVANNI GARCIA S. 11/20/18 Ondansetron Hcl* (Zofran*) 4 Mg Tab, 4 MG PO Q6H PRN for NAUSEA AND OR VOMITING, #20 TAB Prov:GIOVANNI GARCIA S. 11/20/18 Reported Medications Atorvastatin* (Atorvastatin*) 80 Mg Tablet, 80 MG PO QHS for 90 Days, #90 11/15/18 Glimepiride* (Glimepiride*) 4 Mg Tablet, 4 MG PO BID for 90 Days, #180 11/15/18 Aspirin (Yariel Child) 81 Mg Chew, 81 MG PO DAILY for 30 Days, #30 11/15/18 Insulin Glargine,Hum.rec.anlog (Basaglar Kwikpen U-100) 100 Unit/1 Ml Insuln.pen, 5 UNIT SC BEVERLY Keller EA 03/11/18 Metformin Hcl* (Metformin Hcl*) 1,000 Mg Tablet, 1000 MG PO WITH BREAKFAST DINNE, #60 TAB 10/28/17 Discontinued Scripts Ondansetron (Ondansetron Odt) 4 Mg Tab.rapdis, 4 MG PO Q6H PRN for NAUSEA AND/OR VOMITING, #10 TAB Prov:KALIN HILTON MD 03/11/18 Hydrocodone/Acetaminophen ([place] 10-325 Tablet) 1 Each Tablet, 1 TAB PO Q6H PRN for PAIN, #7 TAB Prov:KALIN HILTON MD 03/11/18 Follow-up Plan Please take your medications as prescribed, see your doctor in clinic in the next 1 week. Primary Care Provider [facility] Time spent on discharge: > 30 minutes Pending Labs Laboratory Tests Test 11/19/18 12:17 11/19/18 17:52 11/19/18 20:09 11/20/18 01:01 Bedside 126 107 100 105 Glucose mg/dL (70-220) mg/dL (70-220) mg/dL (70-220) mg/dL (70-220) Test 11/20/18 05:09 11/20/18 05:10 11/20/18 08:48 Bedside 109 115 Glucose mg/dL (70-220) mg/dL (70-220) White Blood 6.0 Count 10^3/ul (4.8-1 0.8) Red Blood 4.46 Count 10^6/ul (4.70- 6.10) Hemoglobin 14.3 g/dl (14.0-18. 0) Hematocrit 41.8 % (42.0-52.0) Mean 93.7 Corpuscular fl (82.0-101.0 Volume ) Mean 32.1 Corpuscular pg (29.0-33.0) Hemoglobin Mean 34.2 Corpuscular g/dl (32.0-37. Hemoglobin Conc 0) ent Red Cell 13.0 Distribution % (11.5-14.5) Width Platelet Count 67 10^3/UL (140-4 15) Mean Platelet 11.1 Volume fl (7.4-10.4) Immature 0.300 Granulocytes % % (0.001-0.429 ) Neutrophils % 61.7 % (39.0-77.0) Lymphocytes % 16.9 % (15.0-51.0) Monocytes % 17.7 % (0.0-11.0) Eosinophils % 3.2 % (0.0-7.0) Basophils % 0.2 % (0.0-2.0) Nucleated Red 0.0 Blood Cells % /100WBC (0.0-0 .0) Immature 0.020 Granulocytes # 10^3/ul (0.0-0 .031) Neutrophils # 3.7 10^3/ul (1.6-7 .5) Lymphocytes # 1.0 10^3/ul (0.8-2 .9) Monocytes # 1.1 10^3/ul (0.3-0 .9) Eosinophils # 0.2 10^3/ul (0.0-0 .5) Basophils # 0.0 10^3/ul (0.0-0 .1) Nucleated Red 0.0 Blood Cells # 10^3/ul (0.0-0 .0) Sodium Level 137 mmol/L (135-14 4) Potassium 3.6 Level mmol/L (3.5-5. 1) Chloride Level 99 mmol/L (97-110 ) Carbon Dioxide 25 Level mmol/L (21-31) Anion Gap 13 (5-13) Blood Urea 8 mg/dl (7-20) Nitrogen Creatinine 0.66 mg/dl (0.61-1. 24) Est Glomerular > 60 Filtrat mL/min (>60) Rate mL/min Glucose Level 104 mg/dl (70-220) Calcium Level 8.4 mg/dl (8.4-10. 2) GIOVANNI GARCIA. Nov 20, 2018 10:52
[2018-11-20] MEDS: LORAZEPAM 2 MG INJ IV PRN ×2 (17:54→23:16)
[2018-11-20] MEDS: ATORVASTATIN 80 MG TAB PO SCH (20:01)
[2018-11-20] MEDS: HYDROCODONE/APAP (5/325) TAB PO PRN (20:01)
[2018-11-21] VITALS (11 sets, daily range): BP systolic 106–156; BP diastolic 58–93; PULSE 60–88; RESP 18–22
[2018-11-21] MEDS ORDERED: ACCU-CHEK XX SCH (02:00)
[2018-11-21] MEDS: SOD CHLORIDE 0.45% 1,000 ML IV SCH (04:30)
[2018-11-21] MEDS: ASPIRIN 81 MG TAB PO SCH (08:02)
[2018-11-21] MEDS: INSULIN GLARGINE [LANTus] (100 UNITS/ML) SYG SC SCH (08:17)
[2018-11-21] MEDS: INSULIN ASPART [NOVOLOG] 3 ML PEN SC SCH ×2 (08:17→12:04)
[2018-11-21] MEDS ORDERED: POTASSIUM CHLORIDE (SR) 20 MEQ TAB PO STA (12:05)
[2018-11-21] MEDS: traMADol 50 MG TAB PO PRN (12:19)
--- NOTE | 2018-11-21 17:32 | DS ---
Date/Time of Note Date/Time of Note DATE: 11/21/18 TIME: 17:30 Discharge Summary Admission/Discharge Info Admit Date/Time Nov 18, 2018 at 14:52 Discharge Date/Time Nov 21, 2018 Discharge Diagnosis Gastroenteritis Patient Condition: Good Hx of Present Illness 53-year-old male who presented to the emergency department with multiple complaints. As per the ED physician there was a reported episode of syncope. However when I speak to the patient he gives me a different story. He states that he has a headache for 3 days. He also reports that he has had left-sided numbness of his face and his arm. He also reported generalized weakness. Patient also reports lower back pain. When asked about drinking he states that the last drink he had was 1 week ago. He denies any chest pain or shortness of breath or nausea or vomiting. Upon review of the patient's medical records he does have a history of alcohol abuse. Hospital Course Patient was admitted and seen by the team during this hospital stay. He ruled out for acute stroke as he also had echocardiogram performed and the results were reviewed. He also had some abdominal pain symptoms and was found with some mild pancreatitis and was made n.p.o. for the first couple of days of his stay. This slowly resolved. However when he was placed on liquid diet he did have some nausea symptoms and some mild abdominal pain symptoms so this was cautiously continued and he did receive antiemetics which helped control his nausea symptoms. He did continue to have nausea and vomiting in the hospital after his brought outside food. On day of discharge nausea was improving and there was no more vomiting. Home Meds Active Scripts Tramadol HCl (Tramadol HCl) 50 Mg Tablet, 50 MG PO Q6H PRN for MODERATE PAIN LEVEL 4-6, #20 TAB Prov:GIOVANNI GARCIA S. 11/20/18 Ondansetron Hcl* (Zofran*) 4 Mg Tab, 4 MG PO Q6H PRN for NAUSEA AND OR VOMITING, #20 TAB Prov:GIOVANNI GARCIA S. 11/20/18 Reported Medications Atorvastatin* (Atorvastatin*) 80 Mg Tablet, 80 MG PO QHS for 90 Days, #90 11/15/18 Glimepiride* (Glimepiride*) 4 Mg Tablet, 4 MG PO BID for 90 Days, #180 6/18/19 Aspirin (Yariel Child) 81 Mg Chew, 81 MG PO DAILY for 30 Days, #30 11/15/18 Insulin Glargine,Hum.rec.anlog (Violaaglkelvin Mendesjessa U-100) 100 Unit/1 Ml Insuln.pen, 5 UNIT SC AC Arianna, EA 03/11/18 Metformin Hcl* (Metformin Hcl*) 1,000 Mg Tablet, 1000 MG PO WITH BREAKFAST DINNE, #60 TAB 10/28/17 Discontinued Scripts Ondansetron (Ondansetron Odt) 4 Mg Tab.rapdis, 4 MG PO Q6H PRN for NAUSEA AND/OR VOMITING, #10 TAB Prov:KALIN HILTON MD 03/11/18 Hydrocodone/Acetaminophen ([place] 10-325 Tablet) 1 Each Tablet, 1 TAB PO Q6H PRN for PAIN, #7 TAB Prov:KALIN HILTON MD 03/11/18 Follow-up Plan Please take your medications as prescribed, see your doctor in clinic in the next 1 week. Primary Care Provider [facility] Time spent on discharge: > 30 minutes Pending Labs Laboratory Tests Test 11/20/18 20:00 11/21/18 04:56 11/21/18 04:57 11/21/18 08:02 Bedside 100 251 Glucose mg/dL (70-220) mg/dL (70-220) Sodium Level 136 mmol/L (135-14 4) Potassium 3.1 Level mmol/L (3.5-5. 1) Chloride Level 98 mmol/L (97-110 ) Carbon Dioxide 26 Level mmol/L (21-31) Anion Gap 12 (5-13) Blood Urea 12 Nitrogen mg/dl (7-20) Creatinine 0.74 mg/dl (0.61-1. 24) Est Glomerular > 60 Filtrat mL/min (>60) Rate mL/min Glucose Level 196 mg/dl (70-220) Calcium Level 8.4 mg/dl (8.4-10. 2) White Blood 6.9 Count 10^3/ul (4.8-1 0.8) Red Blood 4.70 Count 10^6/ul (4.70- 6.10) Hemoglobin 15.1 g/dl (14.0-18. 0) Hematocrit 44.0 % (42.0-52.0) Mean 93.6 Corpuscular fl (82.0-101.0 Volume ) Mean 32.1 Corpuscular pg (29.0-33.0) Hemoglobin Mean 34.3 Corpuscular g/dl (32.0-37. Hemoglobin Conc 0) ent Red Cell 12.9 Distribution % (11.5-14.5) Width Platelet Count 103 10^3/UL (140-4 15) Mean Platelet 11.1 Volume fl (7.4-10.4) Immature 0.300 Granulocytes % % (0.001-0.429 ) Neutrophils % 51.3 % (39.0-77.0) Lymphocytes % 25.1 % (15.0-51.0) Monocytes % 18.9 % (0.0-11.0) Eosinophils % 4.0 % (0.0-7.0) Basophils % 0.4 % (0.0-2.0) Nucleated Red 0.0 Blood Cells % /100WBC (0.0-0 .0) Immature 0.020 Granulocytes # 10^3/ul (0.0-0 .031) Neutrophils # 3.5 10^3/ul (1.6-7 .5) Lymphocytes # 1.7 10^3/ul (0.8-2 .9) Monocytes # 1.3 10^3/ul (0.3-0 .9) Eosinophils # 0.3 10^3/ul (0.0-0 .5) Basophils # 0.0 10^3/ul (0.0-0 .1) Nucleated Red 0.0 Blood Cells # 10^3/ul (0.0-0 .0) Test 11/21/18 12:01 Bedside 188 Glucose mg/dL (70-220) TARAH GOLD MD Nov 21, 2018 17:32
== END 2018-11-21 17:36 | disposition home or self-care (01) | DRG 391 ==
LOC: E/R 21:01 → INTOOBSV 11-16 05:35 → 6WM 11-16 05:35 → OBSVTOIN 11-18 14:52
PROVIDERS: ADMIT Family Medicine; ATTEND Internal Medicine
DX: K52.9 Noninfective gastroenteritis and colitis, unspecified (principal); K85.90 Acute pancreatitis without necrosis or infection, unspecified; E11.9 Type 2 diabetes mellitus without complications; I10 Essential (primary) hypertension; I25.10 Atherosclerotic heart disease of native coronary artery without angina pectoris; F10.10 Alcohol abuse, uncomplicated; Y90.0 Blood alcohol level of less than 20 mg/100 ml; E78.5 Hyperlipidemia, unspecified; J44.9 Chronic obstructive pulmonary disease, unspecified; G43.109 Migraine with aura, not intractable, without status migrainosus; M54.5 Low back pain; R10.13 Epigastric pain; R55 Syncope and collapse; Z79.4 Long term (current) use of insulin; Z79.82 Long term (current) use of aspirin; F17.200 Nicotine dependence, unspecified, uncomplicated; Z95.5 Presence of coronary angioplasty implant and graft
CPT/HCPCS: 36415; 70450; 70496; 70498; 70551; 71045; 72128; 74176; 80048; 80053; 80061; 80307; 82962; 83036; 83690; 83735; 84443; 84484; 85025; 85610; 85730; 93005; 93306; 96361; 96374; 96375; 96376; 97116; 97162; 97166; 97530; 99217; G0378; J1170; J1815; J2060; J2270; J2405; J3250; J3480; J7030; J7040; Q9967

== ENCOUNTER 2019-02-21 09:06 | Emergency (ER) | payer OTHER ==
[~2019-02-21] VITALS: Ht 180.3 cm; Wt 106.7 kg
[~2019-02-21 09:06] MED LIST changes: +ASPI-676 PO; +ATOR-2 PO; +GLIM4TAB3 PO; -HYDR-3980 PO; +IBUP-1542 PO; +ONDA4TAB13 PO; +TRAM50TA2 PO
[2019-02-21 09:31] VITALS: Ht 180.3 cm; Wt 106.7 kg
[2019-02-21] MEDS ORDERED: morphine 4 MG/ML VIAL IV STA (11:08)
[2019-02-21] MEDS ORDERED: SOD CHLORIDE 0.9% 1,000 ML IV STA (11:08)
[2019-02-21] MEDS ORDERED: ONDANSETRON 4 MG INJ IV STA ×2 (11:08→14:08)
[2019-02-21] MEDS ORDERED: HYDROmorphONE 2 MG/ML SYG IV STA (12:28)
[2019-02-21] MEDS ORDERED: LORAZEPAM 2 MG INJ IV ONE (14:30)
[2019-02-21 14:36] VITALS: BP 145/96; PULSE 94; RESP 20
== END 2019-02-21 14:25 | disposition home or self-care (01) ==
LOC: E/R 09:06
DX: R10.13 Epigastric pain (principal); I10 Essential (primary) hypertension; E11.9 Type 2 diabetes mellitus without complications; R11.2 Nausea with vomiting, unspecified; Z79.4 Long term (current) use of insulin; Z79.82 Long term (current) use of aspirin
CPT/HCPCS: 36415; 76705; 80053; 81001; 82962; 83690; 85025; 96374; 96375; 96376; J1170; J2060; J2270; J2405; J7030; Z7502; Z7610